=== PATIENT | female | born 1935 | race Caucasian/White ===

== ENCOUNTER 2022-05-11 00:44 | Inpatient (IN) ==
[2022-05-11] MEDS ORDERED: dilTIAZem HCl 5 MG/ML 5 ML VIAL IV ONE (00:50)
[2022-05-11] MEDS ORDERED: STAT IV Infusion **Titration per Protocol STA (00:56)
--- NOTE | 2022-05-11 01:02 | Emergency Department Note ---
History of Present Illness General Chief complaint: Cardiac Assessment Stated complaint: general illness; elevated BSG Time Seen by Provider: 05/11/22 00:55 History of Present Illness 86-year-old female presents via EMS reportedly was unable to get off the toilet seat for approximately 3 hours this evening. Family called and the patient did not respond therefore they went to the patient's house and found her on the toilet. Patient states generalized weakness. Patient denies nausea vomiting diarrhea denies chest pain denies palpitations denies slurred speech blurred vision. Patient states that she was generally too weak to get off of the toilet. Home Medications Medication Instructions Recorded Confirmed Type acetaminophen 325 mg tablet 650 mg PO QID PRN Pain 02/22/21 05/11/22 History (Tylenol) lorazepam 0.5 mg tablet 0.5 mg PO TID PRN Anxiety 02/22/21 05/11/22 History phenylephrine 0.25 %-mineral oil 1 applic [place] BID PRN hemorrhoids 02/22/21 05/11/22 Rx 14 %-petrolatm 74.9 % rectal #28 grams ointment (Preparation H) Allergies Allergy/AdvReac Type Severity Reaction Status Date / Time Penicillins Allergy Unknown CAN'T Verified 05/11/22 01:33 REMEMBER prednisone AdvReac Intermediate irritabilit Verified 05/11/22 01:33 y Past Med/Surg History Medical History COPD (chronic obstructive pulmonary disease) (03/04/14) JOSE (generalized anxiety disorder) (03/04/14) History of diverticulosis Lower GI bleed Surgical History H/O tubal ligation Family History Other Family history non-contributory Social History Smoking Status: Never smoker Preferred Language: Lithuanian Feels Safe at Home: Yes Review of Systems A total of 10 systems reviewed and were otherwise negative Constitutional: + fatigue and + weakness Respiratory: no cough Cardiovascular: no chest pain and no palpitations Gastrointestinal: no abdominal pain Physical Exam Vital Signs Vital Signs - 24 hr 05/11/22 00:56 05/11/22 00:57 05/11/22 00:50 Temperature Temperature Source Pulse Rate 181 H Pulse Rate [Apical] 141 H Pulse Rate from SpO2 Sensor 169 H Pulse Rhythm Respiratory Rate 24 37 H Respiratory Depth Blood Pressure 88/67 L Blood Pressure [Right Arm] 91/71 L Blood Pressure Mean 74 Blood Pressure Mean [Right Arm] 77 Pulse Oximetry 95 96 95 Oxygen Delivery Method Room Air Room Air Room Air Sepsis Recent Fever Within 48 Hours Sepsis New/Unexplained Change in Mental Status Sepsis Action Taken by Nursing 05/11/22 00:36 05/11/22 00:36 05/11/22 00:56 Temperature 37 C Temperature Source Oral Pulse Rate 168 H Pulse Rate [Apical] Pulse Rate from SpO2 Sensor Pulse Rhythm Irregular Respiratory Rate 16 Respiratory Depth Normal Blood Pressure 85/67 L 91/71 L Blood Pressure [Right Arm] Blood Pressure Mean 73 77 Blood Pressure Mean [Right Arm] Pulse Oximetry 97 Oxygen Delivery Method Room Air Room Air Sepsis Recent Fever Within 48 Hours No Sepsis New/Unexplained Change in Mental Status No Sepsis Action Taken by Nursing Physician Notified 05/11/22 00:56 05/11/22 01:00 05/11/22 01:00 Temperature Temperature Source Pulse Rate 153 H 138 H Pulse Rate [Apical] Pulse Rate from SpO2 Sensor 147 H 146 H Pulse Rhythm Respiratory Rate 29 H 33 H Respiratory Depth Blood Pressure 102/70 Blood Pressure [Right Arm] Blood Pressure Mean 80 Blood Pressure Mean [Right Arm] Pulse Oximetry 95 96 Oxygen Delivery Method Sepsis Recent Fever Within 48 Hours Sepsis New/Unexplained Change in Mental Status Sepsis Action Taken by Nursing 05/11/22 01:10 05/11/22 01:10 05/11/22 01:20 Temperature Temperature Source Pulse Rate 137 H Pulse Rate [Apical] Pulse Rate from SpO2 Sensor 132 H Pulse Rhythm Respiratory Rate 27 H Respiratory Depth Blood Pressure 100/61 105/74 Blood Pressure [Right Arm] Blood Pressure Mean 74 84 Blood Pressure Mean [Right Arm] Pulse Oximetry 95 Oxygen Delivery Method Sepsis Recent Fever Within 48 Hours Sepsis New/Unexplained Change in Mental Status Sepsis Action Taken by Nursing 05/11/22 01:20 05/11/22 01:30 05/11/22 01:30 Temperature Temperature Source Pulse Rate 143 H 115 H Pulse Rate [Apical] Pulse Rate from SpO2 Sensor 127 H 115 H Pulse Rhythm Respiratory Rate 31 H 26 H Respiratory Depth Blood Pressure 101/62 101/62 Blood Pressure [Right Arm] Blood Pressure Mean 75 75 Blood Pressure Mean [Right Arm] Pulse Oximetry 95 97 Oxygen Delivery Method Sepsis Recent Fever Within 48 Hours Sepsis New/Unexplained Change in Mental Status Sepsis Action Taken by Nursing 05/11/22 01:40 05/11/22 01:40 05/11/22 01:50 Temperature Temperature Source Pulse Rate 136 H 137 H Pulse Rate [Apical] Pulse Rate from SpO2 Sensor 130 H 133 H Pulse Rhythm Respiratory Rate 29 H 24 Respiratory Depth Blood Pressure 111/62 Blood Pressure [Right Arm] Blood Pressure Mean 78 Blood Pressure Mean [Right Arm] Pulse Oximetry 96 97 Oxygen Delivery Method Sepsis Recent Fever Within 48 Hours Sepsis New/Unexplained Change in Mental Status Sepsis Action Taken by Nursing 05/11/22 01:50 05/11/22 02:00 05/11/22 02:00 Temperature Temperature Source Pulse Rate 85 Pulse Rate [Apical] Pulse Rate from SpO2 Sensor 74 Pulse Rhythm Respiratory Rate 27 H Respiratory Depth Blood Pressure 98/61 L 113/61 Blood Pressure [Right Arm] Blood Pressure Mean 73 78 Blood Pressure Mean [Right Arm] Pulse Oximetry 96 Oxygen Delivery Method Sepsis Recent Fever Within 48 Hours Sepsis New/Unexplained Change in Mental Status Sepsis Action Taken by Nursing 05/11/22 02:10 05/11/22 02:10 05/11/22 02:20 Temperature Temperature Source Pulse Rate 76 75 Pulse Rate [Apical] Pulse Rate from SpO2 Sensor 79 74 Pulse Rhythm Respiratory Rate 28 H 25 H Respiratory Depth Blood Pressure 110/63 Blood Pressure [Right Arm] Blood Pressure Mean 78 Blood Pressure Mean [Right Arm] Pulse Oximetry 96 96 Oxygen Delivery Method Sepsis Recent Fever Within 48 Hours Sepsis New/Unexplained Change in Mental Status Sepsis Action Taken by Nursing 05/11/22 02:20 05/11/22 02:30 05/11/22 02:30 Temperature Temperature Source Pulse Rate 85 Pulse Rate [Apical] Pulse Rate from SpO2 Sensor Pulse Rhythm Respiratory Rate 26 H Respiratory Depth Blood Pressure 114/61 118/68 Blood Pressure [Right Arm] Blood Pressure Mean 78 84 Blood Pressure Mean [Right Arm] Pulse Oximetry Oxygen Delivery Method Sepsis Recent Fever Within 48 Hours Sepsis New/Unexplained Change in Mental Status Sepsis Action Taken by Nursing 05/11/22 02:40 05/11/22 02:40 05/11/22 02:50 Temperature Temperature Source Pulse Rate 79 78 Pulse Rate [Apical] Pulse Rate from SpO2 Sensor Pulse Rhythm Respiratory Rate 23 27 H Respiratory Depth Blood Pressure 93/59 L Blood Pressure [Right Arm] Blood Pressure Mean 70 Blood Pressure Mean [Right Arm] Pulse Oximetry Oxygen Delivery Method Sepsis Recent Fever Within 48 Hours Sepsis New/Unexplained Change in Mental Status Sepsis Action Taken by Nursing 05/11/22 02:50 05/11/22 03:00 05/11/22 03:00 Temperature Temperature Source Pulse Rate 81 Pulse Rate [Apical] Pulse Rate from SpO2 Sensor Pulse Rhythm Respiratory Rate 23 Respiratory Depth Blood Pressure 125/69 110/71 Blood Pressure [Right Arm] Blood Pressure Mean 87 84 Blood Pressure Mean [Right Arm] Pulse Oximetry Oxygen Delivery Method Sepsis Recent Fever Within 48 Hours Sepsis New/Unexplained Change in Mental Status Sepsis Action Taken by Nursing 05/11/22 03:10 05/11/22 03:10 05/11/22 03:20 Temperature Temperature Source Pulse Rate 81 81 Pulse Rate [Apical] Pulse Rate from SpO2 Sensor 77 80 Pulse Rhythm Respiratory Rate 26 H 30 H Respiratory Depth Blood Pressure 108/65 Blood Pressure [Right Arm] Blood Pressure Mean 79 Blood Pressure Mean [Right Arm] Pulse Oximetry 97 94 Oxygen Delivery Method Sepsis Recent Fever Within 48 Hours Sepsis New/Unexplained Change in Mental Status Sepsis Action Taken by Nursing 05/11/22 03:20 05/11/22 03:30 05/11/22 03:30 Temperature Temperature Source Pulse Rate 76 Pulse Rate [Apical] Pulse Rate from SpO2 Sensor 76 Pulse Rhythm Respiratory Rate 29 H Respiratory Depth Blood Pressure 108/59 L 112/63 Blood Pressure [Right Arm] Blood Pressure Mean 75 79 Blood Pressure Mean [Right Arm] Pulse Oximetry 98 Oxygen Delivery Method Sepsis Recent Fever Within 48 Hours Sepsis New/Unexplained Change in Mental Status Sepsis Action Taken by Nursing 05/11/22 03:40 05/11/22 03:40 05/11/22 03:50 Temperature Temperature Source Pulse Rate 82 82 Pulse Rate [Apical] Pulse Rate from SpO2 Sensor 80 78 Pulse Rhythm Respiratory Rate 22 32 H Respiratory Depth Blood Pressure 116/80 Blood Pressure [Right Arm] Blood Pressure Mean 92 Blood Pressure Mean [Right Arm] Pulse Oximetry 92 97 Oxygen Delivery Method Sepsis Recent Fever Within 48 Hours Sepsis New/Unexplained Change in Mental Status Sepsis Action Taken by Nursing 05/11/22 03:50 05/11/22 04:00 05/11/22 04:00 Temperature Temperature Source Pulse Rate 81 Pulse Rate [Apical] Pulse Rate from SpO2 Sensor 81 Pulse Rhythm Respiratory Rate 33 H Respiratory Depth Blood Pressure 118/74 119/69 Blood Pressure [Right Arm] Blood Pressure Mean 88 85 Blood Pressure Mean [Right Arm] Pulse Oximetry 96 Oxygen Delivery Method Sepsis Recent Fever Within 48 Hours Sepsis New/Unexplained Change in Mental Status Sepsis Action Taken by Nursing 05/11/22 04:10 05/11/22 04:10 05/11/22 04:20 Temperature Temperature Source Pulse Rate 77 Pulse Rate [Apical] Pulse Rate from SpO2 Sensor 80 Pulse Rhythm Respiratory Rate 25 H Respiratory Depth Blood Pressure 115/74 122/74 Blood Pressure [Right Arm] Blood Pressure Mean 87 90 Blood Pressure Mean [Right Arm] Pulse Oximetry 98 Oxygen Delivery Method Sepsis Recent Fever Within 48 Hours Sepsis New/Unexplained Change in Mental Status Sepsis Action Taken by Nursing 05/11/22 04:20 05/11/22 04:30 05/11/22 04:30 Temperature Temperature Source Pulse Rate 78 84 Pulse Rate [Apical] Pulse Rate from SpO2 Sensor 74 86 Pulse Rhythm Respiratory Rate 30 H 30 H Respiratory Depth Blood Pressure 133/76 Blood Pressure [Right Arm] Blood Pressure Mean 95 Blood Pressure Mean [Right Arm] Pulse Oximetry 95 98 Oxygen Delivery Method Sepsis Recent Fever Within 48 Hours Sepsis New/Unexplained Change in Mental Status Sepsis Action Taken by Nursing 05/11/22 04:40 05/11/22 04:40 05/11/22 04:50 Temperature Temperature Source Pulse Rate 79 75 Pulse Rate [Apical] Pulse Rate from SpO2 Sensor 78 77 Pulse Rhythm Respiratory Rate 21 21 Respiratory Depth Blood Pressure 170/99 H Blood Pressure [Right Arm] Blood Pressure Mean 122 Blood Pressure Mean [Right Arm] Pulse Oximetry 92 98 Oxygen Delivery Method Sepsis Recent Fever Within 48 Hours Sepsis New/Unexplained Change in Mental Status Sepsis Action Taken by Nursing 05/11/22 04:50 05/11/22 05:00 05/11/22 05:00 Temperature Temperature Source Pulse Rate 80 Pulse Rate [Apical] Pulse Rate from SpO2 Sensor 75 Pulse Rhythm Respiratory Rate 27 H Respiratory Depth Blood Pressure 144/77 H 141/84 H Blood Pressure [Right Arm] Blood Pressure Mean 99 103 Blood Pressure Mean [Right Arm] Pulse Oximetry 97 Oxygen Delivery Method Sepsis Recent Fever Within 48 Hours Sepsis New/Unexplained Change in Mental Status Sepsis Action Taken by Nursing 05/11/22 05:10 05/11/22 05:10 05/11/22 05:20 Temperature Temperature Source Pulse Rate 69 95 H Pulse Rate [Apical] Pulse Rate from SpO2 Sensor 68 86 Pulse Rhythm Respiratory Rate 22 34 H Respiratory Depth Blood Pressure 122/69 Blood Pressure [Right Arm] Blood Pressure Mean 86 Blood Pressure Mean [Right Arm] Pulse Oximetry 92 94 Oxygen Delivery Method Sepsis Recent Fever Within 48 Hours Sepsis New/Unexplained Change in Mental Status Sepsis Action Taken by Nursing 05/11/22 05:20 05/11/22 05:30 05/11/22 05:31 Temperature Temperature Source Pulse Rate 77 Pulse Rate [Apical] Pulse Rate from SpO2 Sensor 71 Pulse Rhythm Respiratory Rate 21 Respiratory Depth Blood Pressure 129/75 146/86 H Blood Pressure [Right Arm] Blood Pressure Mean 93 106 Blood Pressure Mean [Right Arm] Pulse Oximetry 97 Oxygen Delivery Method Sepsis Recent Fever Within 48 Hours Sepsis New/Unexplained Change in Mental Status Sepsis Action Taken by Nursing 05/11/22 05:31 05/11/22 05:40 05/11/22 05:40 Temperature Temperature Source Pulse Rate 72 72 Pulse Rate [Apical] Pulse Rate from SpO2 Sensor 70 70 Pulse Rhythm Respiratory Rate 27 H 25 H Respiratory Depth Blood Pressure 138/79 Blood Pressure [Right Arm] Blood Pressure Mean 98 Blood Pressure Mean [Right Arm] Pulse Oximetry 90 98 Oxygen Delivery Method Sepsis Recent Fever Within 48 Hours Sepsis New/Unexplained Change in Mental Status Sepsis Action Taken by Nursing GENERAL: Patient is awake alert in no acute distress patient is resting comfortably and showing no signs of anxiety EYES: The conjunctivae are clear. The pupils are round and reactive. EARS, NOSE, MOUTH AND THROAT: The nose is without any evidence of any deformity. Mucous membranes are moist. Tongue is midline. NECK: The neck is nontender and supple RESPIRATORY: Normal respiratory effort is noted there is no evidence of wheezing rhonchi or rales CARDIAC Irregular, tachycardic rate and rhythm GASTROINTESTINAL: The abdomen is soft. Abdomen is nontender. PELVIS: The Pelvis is stable. No tenderness to palpation is noted. BACK: No midline tenderness or or step-off noted range of motion in flexion extension as well as rotation no signs of muscle spasm noted MUSCULOSKELETAL/EXTREMITIES: There is no evidence of gross deformity full range of motion is noted in the hips and shoulders. SKIN: There is no obvious evidence of any rash. There are no petechiae, pallor or cyanosis noted. NEUROLOGIC: Patient is awake alert and oriented x3 strength is symmetric Course Reevaluation(s) Reevaluation #1: Patient is resting in no distress after an IV Cardizem drip her heart rate is now in a sinus rhythm less than 100. Patient was started empirically on cefepime I suspect that she might have a urinary tract infection as well. Patient was given IV fluids judiciously as with rapid A. fib there is a concern for CHF. Her white blood cell count is 33 her lactate is greater than 2 so there is a possibility for sepsis however patient was given a judicious IV bolus of fluid. Patient is on a Cardizem drip. The case was discussed with the hospitalist from [facility] for admission Time: 03:48 Administered Medications Diltiazem HCl 125 mg/ Dextrose 125 mls @ 7.5 mls/hr IV .[id number] QI; Protocol Stop: 06/10/22 00:59 Last Titration: 05/11/22 03:30 Dose: 7.5 mg/hr, 7.5 mls/hr Documented By: NASIR Co-signed By: VINAY Titration: 05/11/22 01:51 Dose: 10 mg/hr, 10 mls/hr Documented By: NASIR Co-signed By: MARIANNE Admin: 05/11/22 01:12 Dose: 5 mg/hr, 5 mls/hr Documented By: NASIR Co-signed By: AUSTIN Discontinued Medications Diltiazem HCl (Diltiazem Hcl 5 Mg/Ml 5 Ml Vial) Confirm Administered Dose 25 mg IV .STK-MED ONE Stop: 05/11/22 00:51 Last Increment: 05/11/22 01:05 Dose: 10 mg Documented By: NASIR Co-signed By: AUSTIN Increment: 05/11/22 00:55 Dose: 10 mg Documented By: NASIR Co-signed By: AUSTIN Cefepime HCl (Maxipime) 2,000 mg in 20 mls @ 5 mls/min IV NOW STA; Protocol Stop: 05/11/22 02:51 Last Admin: 05/11/22 03:08 Dose: 5 mls/min Documented By: NASIR Sodium Chloride (Nss) 500 mls @ 500 mls/hr IV .Q1H QI Stop: 05/11/22 05:14 Last Admin: 05/11/22 05:20 Dose: Not Given Documented By: NASIR Sodium Chloride (Nss 1000ml) 1,000 mls @ 999 mls/hr IV .Q1H1M QI Stop: 05/11/22 05:30 Last Admin: 05/11/22 05:07 Dose: 999 mls/hr Documented By: NASIR Insulin Human Regular (Novolin-R Insulin Per Unit Charge) 6 units IV NOW STA Stop: 05/11/22 04:11 Last Admin: 05/11/22 05:07 Dose: 6 units Documented By: NASIR Co-signed By: VINAY Lorazepam (Lorazepam 0.5 Mg Tab) 0.5 mg PO NOW STA Stop: 05/11/22 05:17 Last Admin: 05/11/22 05:19 Dose: 0.5 mg Documented By: NASIR Miscellaneous (Stat Iv Infusion Titration Per Protocol) 1 each N/A NOW STA Stop: 05/11/22 00:57 Last Admin: 05/11/22 01:12 Dose: Not Given Documented By: NASIR Critical Care Time Prolonged Care Time Prolonged Care Time: Yes Total Prolonged Care Time: 35 I have personally spent greater than 35 minutes of critical care time in the direct management of this patient. This includes bedside care, interpretation of diagnostic studies, and testing, discussion with consultants, patient, and family members, and other required patient management activities. These minutes are in excess of all separately billable procedures. Medical Decision Making Medical Records Attestation: I reviewed the patient's medical records. Home Medications Current Medication List: was personally reviewed by me Laboratory Data Attestation: I reviewed the patient's lab results. Result diagrams: 05/11/22 01:00 05/11/22 01:00 Lab Results 05/11/22 05/11/22 05/11/22 Range/Units 00:59 01:00 01:00 WBC 33.85 H* (4.8-10.8) K/ul RBC 5.20 (3.93-5.22) M/uL Hgb 15.0 (12.0-16.0) g/dl Hct 44.5 (34.1-44.9) % MCV 85.6 (80.0-100.0) fL MCH 28.8 (25.0-34.0) pg MCHC 33.7 (32.0-36.0) g/dL RDW Std Deviation 45.7 (36.4-46.3) fL RDW Coeff of Shilpa 14.6 H (11.5-14.5) % Plt Count 307 (130-400) K/uL MPV 10.5 (9.4-12.3) fL Immature Gran % (Auto) 1.4 % Neut % (Auto) 88.2 % Lymph % (Auto) 1.9 % [place] % (Auto) 8.2 % Eos % (Auto) 0.0 % Baso % (Auto) 0.3 % Neut # (Auto) 29.82 H (1.4-6.5) K/uL Lymph # (Auto) 0.66 L (1.2-3.4) K/uL [place] # (Auto) 2.79 H (0.24-0.82) K/uL Eos # (Auto) 0.00 (0-0.50) K/uL Baso # (Auto) 0.10 (0-0.2) K/uL Immature Gran # (Auto) 0.48 H (0.00-0.02) K/uL PT 10.9 (9.0-12.0) Seconds INR 1.0 (0.9-1.1) APTT 22.8 (21.0-31.0) Seconds PTT Ratio 0.8 Sodium (136-145) mmol/L Potassium (3.5-5.1) mmol/L Chloride (98-107) mmol/L Carbon Dioxide (21-32) mmol/L Anion Gap (3-11) BUN (6-23) mg/dl Creatinine (0.6-1.2) mg/dl Est Cr Clr Drug Dosing Est GFR ( Amer) ml/min Est GFR (Non-Af Amer) ml/min BUN/Creatinine Ratio (10-20) Glucose (70-99(Fasting)) mg/dl POC Glucose (70-99) mg/dl Lactate (0.4-2.0) mmol/L Calcium (8.5-10.1) mg/dl Total Bilirubin (0.2-1.0) mg/dl AST (13-39) U/L ALT (7-52) U/L Alkaline Phosphatase (34-104) U/L Troponin I High Sens (0-14) pg/ml Total Protein (6.0-8.3) gm/dl Albumin (3.4-5.0) gm/dl Globulin (2.5-4.0) gm/dl Albumin/Globulin Ratio (0.9-2) Urine Color Urine Appearance (Clear) Urine pH (4.5-7.5) Ur Specific Harper (1.000-1.030) Urine Protein (Negative) Urine Glucose (UA) (Negative) Urine Ketones (Negative) Urine Blood (Negative) Urine Nitrite (Negative) Urine Bilirubin (Negative) Urine Urobilinogen (Negative) Ur Leukocyte Esterase (Negative) Urine WBC (Auto) (0-5) /hpf Urine RBC (Auto) (0-4) /hpf U Hyaline Cast (Auto) (0-5) /lpf U Epithel Cells (Auto) (0-5) /lpf Urine Bacteria (Auto) (Negative) Urine Yeast (None Prsent) SARS-CoV-2, RNA, NAAT NEGATIVE (NEGATIVE) 05/11/22 05/11/22 05/11/22 Range/Units 01:00 02:23 03:00 WBC (4.8-10.8) K/ul RBC (3.93-5.22) M/uL Hgb (12.0-16.0) g/dl Hct (34.1-44.9) % MCV (80.0-100.0) fL MCH (25.0-34.0) pg MCHC (32.0-36.0) g/dL RDW Std Deviation (36.4-46.3) fL RDW Coeff of Shilpa (11.5-14.5) % Plt Count (130-400) K/uL MPV (9.4-12.3) fL Immature Gran % (Auto) % Neut % (Auto) % Lymph % (Auto) % [place] % (Auto) % Eos % (Auto) % Baso % (Auto) % Neut # (Auto) (1.4-6.5) K/uL Lymph # (Auto) (1.2-3.4) K/uL [place] # (Auto) (0.24-0.82) K/uL Eos # (Auto) (0-0.50) K/uL Baso # (Auto) (0-0.2) K/uL Immature Gran # (Auto) (0.00-0.02) K/uL PT (9.0-12.0) Seconds INR (0.9-1.1) APTT (21.0-31.0) Seconds PTT Ratio Sodium 135 L (136-145) mmol/L Potassium 3.9 (3.5-5.1) mmol/L Chloride 98 (98-107) mmol/L Carbon Dioxide 20 L (21-32) mmol/L Anion Gap 17 H (3-11) BUN 15 (6-23) mg/dl Creatinine 1.22 H (0.6-1.2) mg/dl Est Cr Clr Drug Dosing Not Reportable Est GFR ( Amer) 45.8 ml/min Est GFR (Non-Af Amer) 39.5 ml/min BUN/Creatinine Ratio 12.3 (10-20) Glucose 403 H* (70-99(Fasting)) mg/dl POC Glucose (70-99) mg/dl Lactate 2.9 H* (0.4-2.0) mmol/L Calcium 9.4 (8.5-10.1) mg/dl Total Bilirubin 1.0 (0.2-1.0) mg/dl AST 17 (13-39) U/L ALT 11 (7-52) U/L Alkaline Phosphatase 83 (34-104) U/L Troponin I High Sens 71.5 H* (0-14) pg/ml Total Protein 6.8 (6.0-8.3) gm/dl Albumin 3.7 (3.4-5.0) gm/dl Globulin 3.1 (2.5-4.0) gm/dl Albumin/Globulin Ratio 1.2 (0.9-2) Urine Color Yellow Urine Appearance Turbid A (Clear) Urine pH 5.0 (4.5-7.5) Ur Specific Harper 1.021 (1.000-1.030) Urine Protein 2+ H (Negative) Urine Glucose (UA) 3+ H (Negative) Urine Ketones 1+ H (Negative) Urine Blood 1+ H (Negative) Urine Nitrite Positive A (Negative) Urine Bilirubin Negative (Negative) Urine Urobilinogen Negative (Negative) Ur Leukocyte Esterase 2+ H (Negative) Urine WBC (Auto) >30 H (0-5) /hpf Urine RBC (Auto) 5-10 H (0-4) /hpf U Hyaline Cast (Auto) 1-5 (0-5) /lpf U Epithel Cells (Auto) >30 H (0-5) /lpf Urine Bacteria (Auto) 4+ H (Negative) Urine Yeast Present A (None Prsent) SARS-CoV-2, RNA, NAAT (NEGATIVE) 05/11/22 05/11/22 Range/Units 04:29 04:37 WBC (4.8-10.8) K/ul RBC (3.93-5.22) M/uL Hgb (12.0-16.0) g/dl Hct (34.1-44.9) % MCV (80.0-100.0) fL MCH (25.0-34.0) pg MCHC (32.0-36.0) g/dL RDW Std Deviation (36.4-46.3) fL RDW Coeff of Shilpa (11.5-14.5) % Plt Count (130-400) K/uL MPV (9.4-12.3) fL Immature Gran % (Auto) % Neut % (Auto) % Lymph % (Auto) % [place] % (Auto) % Eos % (Auto) % Baso % (Auto) % Neut # (Auto) (1.4-6.5) K/uL Lymph # (Auto) (1.2-3.4) K/uL [place] # (Auto) (0.24-0.82) K/uL Eos # (Auto) (0-0.50) K/uL Baso # (Auto) (0-0.2) K/uL Immature Gran # (Auto) (0.00-0.02) K/uL PT (9.0-12.0) Seconds INR (0.9-1.1) APTT (21.0-31.0) Seconds PTT Ratio Sodium (136-145) mmol/L Potassium (3.5-5.1) mmol/L Chloride (98-107) mmol/L Carbon Dioxide (21-32) mmol/L Anion Gap (3-11) BUN (6-23) mg/dl Creatinine (0.6-1.2) mg/dl Est Cr Clr Drug Dosing Est GFR ( Amer) ml/min Est GFR (Non-Af Amer) ml/min BUN/Creatinine Ratio (10-20) Glucose (70-99(Fasting)) mg/dl POC Glucose 380 H* (70-99) mg/dl Lactate 3.1 H* (0.4-2.0) mmol/L Calcium (8.5-10.1) mg/dl Total Bilirubin (0.2-1.0) mg/dl AST (13-39) U/L ALT (7-52) U/L Alkaline Phosphatase (34-104) U/L Troponin I High Sens (0-14) pg/ml Total Protein (6.0-8.3) gm/dl Albumin (3.4-5.0) gm/dl Globulin (2.5-4.0) gm/dl Albumin/Globulin Ratio (0.9-2) Urine Color Urine Appearance (Clear) Urine pH (4.5-7.5) Ur Specific Harper (1.000-1.030) Urine Protein (Negative) Urine Glucose (UA) (Negative) Urine Ketones (Negative) Urine Blood (Negative) Urine Nitrite (Negative) Urine Bilirubin (Negative) Urine Urobilinogen (Negative) Ur Leukocyte Esterase (Negative) Urine WBC (Auto) (0-5) /hpf Urine RBC (Auto) (0-4) /hpf U Hyaline Cast (Auto) (0-5) /lpf U Epithel Cells (Auto) (0-5) /lpf Urine Bacteria (Auto) (Negative) Urine Yeast (None Prsent) SARS-CoV-2, RNA, NAAT (NEGATIVE) Imaging Data Attestation: I personally reviewed and interpreted this imaging study as follows: ECG Data Attestation: I personally reviewed and interpreted this ECG as follows: Additional Comments: EKG #1 interpreted by me is SVT versus rapid atrial fibrillation rate greater than [address]-T change no obvious ST segment elevation n ormal axis EKG #2 after IV Cardizem and IV Cardizem drip interpreted by me as a sinus rhythm rate of [address]-T change normal intervals normal axis MDM Narrative Medical decision making differential diagnosis includes SVT, rapid atrial fibri llation, hyperglycemia, metabolic derangement, dehydration. Plan is to check labs, EKG, chest x-ray, give IV Cardizem, observe Patient was evaluated for weakness was found to be in SVT he was given IV Cardizem drip has an elevated white blood cell count has an elevated lactate likely has a urinary tract infection has a negative chest x-ray was given IV fluids judiciously not a 30 mL/kg bolus due to concern for CHF. Patient will be admitted for new onset rapid A. fib SVT, sepsis. Impression & Plan SVT (supraventricular tachycardia), Atrial fibrillation with RVR, Leukocytosis, Weakness, Acute hyperglycemia, SIRS (systemic inflammatory response syndrome), Acute UTI (urinary tract infection) Discharge Plan Visit Data Chief Complaint: Cardiac Assessment Stated Complaint: general illness; elevated BSG ED Provider: Art Jeff Discharge Problem: SVT (supraventricular tachycardia), Atrial fibrillation with RVR, Leukocytosis, Weakness, Acute hyperglycemia, SIRS (systemic inflammatory response syndrome), Acute UTI (urinary tract infection) Forms Stand Alone Forms: Key Travel Prescriptions Prescriptions: No Action acetaminophen [Tylenol] 325 mg Tablet 650 mg PO QID PRN (Reason: Pain) lorazepam 0.5 mg tablet 0.5 mg PO TID PRN (Reason: Anxiety) Preparation H 0.25-14-74.9 % ointment 1 applic [place] BID PRN (Reason: hemorrhoids) Qty: 28 0RF Referrals Referrals: Lance Conklin MD [Primary Care Provider] -
[2022-05-11] MEDS: dilTIAZem HCL 125 MG in DEXTROSE 5% 100 ML IV SCH ×2 (01:12→14:42)
[2022-05-11 01:20] LABS: Partial Thromboplastin Ratio 0.8; Partial Thromboplastin Time 22.8 Seconds (21.0-31.0); Prothrombin Time 10.9 Seconds (9.0-12.0)
[2022-05-11 01:42] LABS: Basophils % (auto) 0.3 %; Hematocrit (blood only) 44.5 % (34.1-44.9); Immature Granulocytes # (auto) 0.48 K/uL (0.00-0.02); Immature Granulocytes % (auto) 1.4 %; Lymphocytes # (auto) 0.66 K/uL (1.2-3.4); Lymphocytes % (auto) 1.9 %; Mean Corpuscular Hemoglobin 28.8 pg (25.0-34.0); Mean Corpuscular Hgb Conc 33.7 g/dL (32.0-36.0); Mean Corpuscular Volume 85.6 fL (80.0-100.0); Mean Platelet Volume 10.5 fL (9.4-12.3); Monocytes # (auto) 2.79 K/uL (0.24-0.82); Monocytes % (auto) 8.2 %; Neutrophils # (auto) 29.82 K/uL (1.4-6.5); Neutrophils % (auto) 88.2 %; Platelet Count 307 K/uL (130-400); RDW Coefficient of Variation 14.6 % (11.5-14.5); RDW Standard Deviation 45.7 fL (36.4-46.3); White Blood Count 33.85 K/ul (4.8-10.8)
[2022-05-11 02:02] LABS: Alanine Aminotransferase 11 U/L (7-52); Albumin Globulin Ratio 1.2 (0.9-2); Albumin Level 3.7 gm/dl (3.4-5.0); Alkaline Phosphatase 83 U/L (34-104); Anion Gap 17 (3-11); Aspartate Aminotransferase 17 U/L (13-39); BUN Creatinine Ratio 12.3 (10-20); Blood Urea Nitrogen 15 mg/dl (6-23); Calcium 9.4 mg/dl (8.5-10.1); Carbon Dioxide 20 mmol/L (21-32); Chloride 98 mmol/L (98-107); Est GFR (African American) 45.8 ml/min; Est GFR (Non-African American) 39.5 ml/min; Globulin 3.1 gm/dl (2.5-4.0); Glucose 403 mg/dl (70-99(Fasting)); Potassium 3.9 mmol/L (3.5-5.1); Sodium 135 mmol/L (136-145); Total Protein 6.8 gm/dl (6.0-8.3); Troponin I High Sensitivity 71.5 pg/ml (0-14)
[2022-05-11] MEDS ORDERED: CEFEPIME 2,000 MG/20 ML VIAL IV STA (02:48)
[2022-05-11 03:13] LABS: Appearance Urine Turbid (Clear); Bacteria Urine Automated 4+ (Negative); Bilirubin Urine Negative (Negative); Blood Urine 1+ (Negative); Color Urine Yellow; Epithelial Cell Urine Auto >30 /lpf (0-5); Glucose Urine UA 3+ (Negative); Ketones Urine 1+ (Negative); Leukocyte Esterase Urine 2+ (Negative); Nitrite Urine Positive (Negative); Protein Urine 2+ (Negative); Specific Gravity Urine 1.021 (1.000-1.030); Urobilinogen Urine Negative (Negative); WBC Urine Automated >30 /hpf (0-5)
[2022-05-11] MEDS ORDERED: NovoLIN-R INSULIN PER UNIT CHARGE IV STA (04:10)
[2022-05-11] MEDS ORDERED: SODIUM CHLORIDE 0.9% 500 ML IV SCH (04:15)
[2022-05-11] MEDS ORDERED: SODIUM CHLORIDE 0.9% 1000ML 1,000 ML IV SCH (04:30)
[2022-05-11] MEDS ORDERED: LORazepam 0.5 MG TAB PO STA (05:16)
[2022-05-11] MEDS ORDERED: POLYETHYLENE (MIRALAX) 17 GM PACK PO PRN (06:43)
[2022-05-11] MEDS ORDERED: NITROGLYCERIN SL 0.4 MG/TAB TAB SL PRN (06:43)
[2022-05-11] MEDS ORDERED: Patient's HEIGHT &/or WEIGHT Needed SCH (07:15)
[2022-05-11] MEDS ORDERED: INSULIN ASPART PER UNIT SC SCH ×2 (07:30→15:00)
[2022-05-11 07:56] LABS: Anion Gap 11 (3-11); BUN Creatinine Ratio 16.2 (10-20); Blood Urea Nitrogen 17 mg/dl (6-23); Calcium 8.4 mg/dl (8.5-10.1); Carbon Dioxide 22 mmol/L (21-32); Chloride 103 mmol/L (98-107); Est GFR (African American) 54.9 ml/min; Est GFR (Non-African American) 47.4 ml/min; Glucose 323 mg/dl (70-99(Fasting)); Potassium 3.6 mmol/L (3.5-5.1); Sodium 136 mmol/L (136-145)
[2022-05-11 08:01] LABS: Hematocrit (blood only) 38.5 % (34.1-44.9); Mean Corpuscular Hgb Conc 33.8 g/dL (32.0-36.0); Mean Corpuscular Volume 85.9 fL (80.0-100.0); Mean Platelet Volume 10.1 fL (9.4-12.3); Platelet Count 275 K/uL (130-400); RDW Coefficient of Variation 14.8 % (11.5-14.5); RDW Standard Deviation 46.9 fL (36.4-46.3); Red Blood Count 4.48 M/uL (3.93-5.22); White Blood Count 33.13 K/ul (4.8-10.8)
[2022-05-11 08:02] LABS: Basophils # (auto) 0.09 K/uL (0-0.2); Basophils % (auto) 0.3 %; Immature Granulocytes # (auto) 0.29 K/uL (0.00-0.02); Immature Granulocytes % (auto) 0.9 %; Lymphocytes # (auto) 1.82 K/uL (1.2-3.4); Lymphocytes % (auto) 5.5 %; Neutrophils # (auto) 27.63 K/uL (1.4-6.5); Neutrophils % (auto) 83.3 %; Troponin I High Sensitivity 1187.7 pg/ml (0-14)
[2022-05-11] MEDS ORDERED: INSULIN HUMAN REGULAR PER UNIT 6 UNITS in SYRINGE 0 ML IV STA (08:02)
[2022-05-11] MEDS ORDERED: PHARMACY GLYCEMIC MGMT CONSULT PRN (08:03)
[2022-05-11] MEDS ORDERED: HEPARIN 25000 UNIT/500 ML D5W IV ONE (08:20)
[2022-05-11] MEDS: INSULIN ASPART PER UNIT SC SCH ×4 (08:25→20:35)
--- NOTE | 2022-05-11 08:42 | XRay Report ---
XR chest 1V portable CLINICAL HISTORY: Atypical chest pain. COMPARISON STUDY: Chest radiograph March 07, 2015. FINDINGS: No pneumothorax or pleural effusion is present. There is no consolidation. Hiatal hernia is noted. Cardiomediastinal silhouette is stable. Appearance of the chest is unchanged. IMPRESSION: No acute cardiopulmonary findings. No change in appearance of the chest. ACT 112: Negative or not required by law. Electronically signed by: Stan Buckley M.D. 05/11/2022 8:40 AM
[2022-05-11] MEDS ORDERED: LANTUS PER UNIT CHARGE SQ ONE ×2 (09:00→21:00)
[2022-05-11] MEDS ORDERED: LANTUS PER UNIT CHARGE SQ SCH (09:00)
--- NOTE | 2022-05-11 09:31 | History and Physical Report ---
DATE OF ADMISSION: 05/11/2022. CHIEF COMPLAINT: Weakness and found to be in rapid AFib. HISTORY OF PRESENT ILLNESS: This 86-year-old female with past medical history significant for type 2 diabetes, currently not on any medications, history of COPD, asthma, not on any medications, history of aortic aneurysm without rupture, history of hypertension, currently not on any medications, GERD, history of depression, generalized anxiety disorder, on Ativan p.r.n., history of DVT, was on Eliquis, currently, it is stopped, who lives alone at home, ambulates with a cane, presents with weakness. Daughter calls her every night. She called around 6:00 p.m. when the patient was taking Tylenol, which she usually takes in the evening, then she called again at 9pm, but the patient was not answering the call. She called several times, she was not answering, then she went to patient's home and found her on the commode, alert and oriented, but not able to get up from the commode, feeling weak when EMS was called and she was brought in here. When she came in, she was in rapid AFib, heart rate in the 180s and she was started on Cardizem drip, currently better controlled. She was also found to have sugars in 400s and also sepsis with white count in 30's and lactate of 2.9. Urinalysis positive.. The patient's daughter is in the room. The patient is somewhat hard of hearing. The patient is also answering appropriately, but daughter is helping with H and P. The patient denies any headache. No blurred vision. Somewhat hard of hearing, no runny nose. Has some mild sore throat, occasional cough, no difficulty swallowing. She is eating and drinking okay. Denies any chest pain, no palpitations, no shortness of breath, no nausea, no abdominal pain. Normal bowel and bladder movements. She micturates a lot, but that is nothing unusual for her. No swelling in the legs, no rash. Hemodynamics are stable currently. ALLERGIES: PENICILLINS, PREDNISONE. PAST MEDICAL HISTORY: As mentioned above. PAST SURGICAL HISTORY: Colonoscopy, EGD. MEDICATIONS: The patient is on Tylenol 650 mg p.o. q.i.d. p.r.n., lorazepam 0.5 mg p.o. t.i.d. p.r.n. anxiety, Preparation H b.i.carlos. p.r.n. for hemorrhoids. FAMILY HISTORY: No family history on record. SOCIAL HISTORY: Currently lives alone. No smoking, no alcohol, no drug use. REVIEW OF SYSTEMS: As per HPI. Rest of the review of systems is negative. PHYSICAL EXAMINATION: GENERAL: The patient is old and frail, not in acute distress. VITAL SIGNS: Temperature 37, pulse 81, respiratory rate 23, blood pressure 110/71, oxygen 96% on room air. HEENT: Pupils equal, round and reactive to light. Oral mucosa dry. NECK: No JVD or neck masses. CARDIOVASCULAR: S1 and S2 heard. Irregular rhythm. No murmur, no gallop. RESPIRATORY SYSTEM: Normal AP diameter. No accessory muscle use. No wheezing, no crackles. ABDOMEN: Soft, bowel sounds present, nontender, no distention. CENTRAL NERVOUS SYSTEM: Alert and oriented. Speech is clear. No facial droop. Insight is okay. Obeys simple commands. Moves extremities. EXTREMITIES: No edema, no erythema. LABORATORY DATA: WBC 33.8, hemoglobin 15, hematocrit 44.5, platelets 307. PT 10.9, INR 1, APTT 22.8. Sodium 135, potassium 3.9, chloride 98, bicarbonate 20, BUN 15, creatinine 1.22, serum glucose 403. Lactate 2.9, calcium 9.4, total bilirubin 1, AST 17, ALT 11, alkaline phosphatase 83. Troponin I high sensitivity is 1.5. Urinalysis positive for nitrite and leukocyte esterase, +4 bacteria. SARS-CoV-2 rapid test positive. IMAGING DATA: Chest x-ray, no acute findings. EKG: Initial EKG: Atrial fibrillation with rapid ventricular response at a rate of 184. Some ST depression and T-wave inversion in inferolateral leads. Repeat EKG showing sinus rhythm, rate 77, nonspecific ST abnormalities. ASSESSMENT AND PLAN: This is an 86-year-old female who presents for weakness and found to have rapid atrial fibrillation, probably mild diabetic ketoacidosis and sepsis with urinary tract infection. 1. Rapid atrial fibrillation: ER started on Cardizem drip, which will be continued. Started on low-dose IV heparin. We will follow echo. We will follow serial enzymes, consult cardiology in the a.m. 2. Sepsis _ with elevated white count, urinary tract infection and elevated lactic acid 2.9: Started on fluids and cefepime. We will follow the cultures. 3. Elevated blood sugars possible mild diabetic ketoacidosis: We will give a dose of IV insulin and fluids and repeat labs.Lantus and ISS. If still uncontrolled, start her on diabetic ketoacidosis protocol. Follow HbA1c levels. Closely monitor. 4. Mild elevation of troponin: Mostly demand ischemia. We will follow serial enzymes. Follow echocardiogram. 5. Depression and anxiety: On Ativan p.r.n. 6. Hypertension: Not on any medications. We will monitor the blood pressure. 7. History of aortic aneurysm without rupture: Follow echocardiogram. 8. History of chronic obstructive pulmonary disease and asthma as per records: Not on any inhalers.Will monitor. 9.Weakness Mostly from above.Pt/Ot when stable. 10. Deep venous thrombosis prophylaxis: On IV heparin. DISPOSITION: Closely monitor in tele floor. Level 1 full code as per discussion with the daughter. Social service to help with discharge planning. Job ID: [id number]
[2022-05-11] MEDS: HEPARIN SODIUM/DEXTROSE 25,000 UNITS/500 ML BAG IV SCH (10:02)
[2022-05-11] MEDS: SODIUM CHLORIDE 0.9% 1000ML 1,000 ML IV SCH ×2 (10:02→20:40)
[2022-05-11] MEDS ORDERED: CEFEPIME 2,000 MG in SYRINGE 0 ML IV SCH (11:00)
--- NOTE | 2022-05-11 13:14 | Cardiology Consultation ---
Date of Consultation May 11, 2022 Assessment & Plan (1) Paroxysmal atrial fibrillation with rapid ventricular response: (2) Leukocytosis: (3) Weakness: (4) Left leg DVT: Spontaneous, August 2021 Plan Patient is an 86-year-old female who presented with acute weakness with atrial fibrillation with rapid response with spontaneous conversion to sinus rhythm following IV diltiazem. No prior history of cardiac disease or arrhythmias. She was treated for a spontaneous DVT in August 2021 with good tolerance of Eliquis. Troponins are significantly elevated question secondary to demand ischemia from rapid rate on presentation, underlying ischemic heart disease. EKGs do not reflect persistent ischemia though will check EKG in a.m and review echocardiogram Recent history of spontaneous DVT concerning anticoagulated appropriately currently with likely plans to transition to Eliquis if hemodynamic stability maintained over the next day Patient being treated for possible underlying infectious concerns given elevated white cell count acute weakness. Impression: Atrial fibrillation, paroxysmal with rapid response, elevated troponin We will add low-dose beta-connor with metoprolol succinate 12.5 mg to daily beginning today Review echocardiogram as available Continue anticoagulation with IV heparin. Ultimate goals transition to Eliquis Cardiology will follow History of Present Illness Reason for Consultation: Paroxysmal atrial fibrillation with rapid ventricular response, elevated troponin Requesting Physician: Dr. Mac Attending Physician: Mahesh Mac MD History of Present Illness The patient is an 86-year-old female whose ongoing issues are as listed below but notably include 1. Acute DVT left lower extremity, spontaneous August 2021 treated with 3 months oral Eliquis 2. Hypertension 3. Chronic obstructive lung disease 4. Type 2 diabetes mellitus 5. Rey's esophagus 6. Pancreatic cyst patient declining EUS 2012 Patient was examined in the presence of granddaughter who aids in history. Patient presents this admission after being found unable to stand sitting on the toilet yesterday. Family notes having tried to contact the patient without response and found patient immobile on toilet. No acute neurologic complaints but generalized weakness. Family feels she was sitting there and mobile for at least 2 hours. Patient denied any chest pain or worsening shortness of breath. Noted no true syncope or near syncope though only fair historian. Main complaint generalized weakness. Notes no recent fevers chills or unexplained infections. No bleeding difficulties. Tolerated Eliquis well during recent treatment for DVT in August. No worsening edema. Denies any specific complaints of dysuria hematuria. Notes no cough or worsening shortness of breath. Appetite is only fair per granddaughter. Weight down 6 to 10 pounds over the last year She presented to the emergency room with atrial fibrillation with very rapid ventricular response rate. Patient spontaneously converted to sinus rhythm after IV diltiazem. Currently feels tired and weak but no acute complaints. No pleuritic discomfort on deep inspiration. No hypoxia EKG on presentation 05/11/2022, 00 54: Atrial fibrillation with very rapid ventricular response, rate [address] segment changes EKG postconversion 05/11/2022 01 59: Sinus rhythm with minor ST segment abnormalities nonspecific with resolve of abnormalities during tachycardia Echocardiogram pending Allergies Allergy/AdvReac Type Severity Reaction Status Date / Time Penicillins Allergy Unknown CAN'T Verified 05/11/22 01:33 REMEMBER prednisone AdvReac Intermediate irritabilit Verified 05/11/22 01:33 y Home Medications Medication Instructions Recorded Confirmed Type acetaminophen 325 mg tablet 650 mg PO QID PRN Pain 02/22/21 05/11/22 History (Tylenol) lorazepam 0.5 mg tablet 0.5 mg PO TID PRN Anxiety 02/22/21 05/11/22 History phenylephrine 0.25 %-mineral oil 1 applic [place] BID PRN hemorrhoids 02/22/21 05/11/22 Rx 14 %-petrolatm 74.9 % rectal #28 grams ointment (Preparation H) Patient History Medical History COPD (chronic obstructive pulmonary disease) (03/04/14) JOSE (generalized anxiety disorder) (03/04/14) History of diverticulosis Lower GI bleed Surgical History H/O tubal ligation Family History Other Family history non-contributory Social History Smoking Status: Never smoker Hx Alcohol Use: No Hx Substance Use: No Preferred Language: Burkinan Communication Ability: Effective Slide Machine Tender Required: No Beliefs That Will Affect Care: None Current Living Situation: Alone Feels Safe at Home: Yes Safety Concerns: Feels Safe At This Time Assistive Devices: Cane Review of Systems Review of Systems: All systems reviewed & are unremarkable except as noted in HPI & below Physical Exam Constitutional: + thin; no acute distress Eyes: PERRL, conjunctivae normal, anicteric sclerae ENMT: external ear and nose normal, oropharynx normal Neck: trachea midline, no thyromegaly Respiratory: normal respiratory effort, lungs clear to auscultation Cardiovascular: Rate/Rhythm: regular rate and regular rhythm Heart Sounds: normal S1, normal S2 and + murmur Vessels: normal carotid upstroke; no JVD Extremities: no edema Gastrointestinal (Abdomen): normal bowel sounds, soft, nontender, no hepatosplenomegaly Musculoskeletal: no cyanosis or clubbing, extremities motor strength 5/5 Neurologic: PERRL, EOMI, accommodation nl, no face palsy, no dysarthria Results & Data ([facility]) Vital Signs (Past 12 Hours) Vital Signs Temp Pulse Pulse Resp BP BP Pulse Ox 05/11/22 09:10 36.9 C 77 24 112/68 98 05/11/22 05:40 138/79 05/11/22 05:40 72 25 H 98 05/11/22 05:31 72 27 H 90 05/11/22 05:31 146/86 H 05/11/22 05:30 77 21 97 05/11/22 05:20 129/75 05/11/22 05:20 95 H 34 H 94 05/11/22 05:10 122/69 05/11/22 05:10 69 22 92 05/11/22 05:00 80 27 H 97 05/11/22 05:00 141/84 H 05/11/22 04:50 144/77 H 05/11/22 04:50 75 21 98 05/11/22 04:40 79 21 92 05/11/22 04:40 170/99 H 05/11/22 04:30 84 30 H 98 05/11/22 04:30 133/76 05/11/22 04:20 78 30 H 95 05/11/22 04:20 122/74 05/11/22 04:10 115/74 05/11/22 04:10 77 25 H 98 05/11/22 04:00 81 33 H 96 05/11/22 04:00 119/69 05/11/22 03:50 118/74 05/11/22 03:50 82 32 H 97 05/11/22 03:40 82 22 92 05/11/22 03:40 116/80 05/11/22 03:30 76 29 H 98 05/11/22 03:30 112/63 05/11/22 03:20 108/59 L 05/11/22 03:20 81 30 H 94 05/11/22 03:10 81 26 H 97 05/11/22 03:10 108/65 05/11/22 03:00 81 23 05/11/22 03:00 110/71 05/11/22 02:50 125/69 05/11/22 02:50 78 27 H 05/11/22 02:40 93/59 L 05/11/22 02:40 79 23 05/11/22 02:30 85 26 H 05/11/22 02:30 118/68 05/11/22 02:20 114/61 05/11/22 02:20 75 25 H 96 05/11/22 02:10 110/63 05/11/22 02:10 76 28 H 96 05/11/22 02:00 85 27 H 96 05/11/22 02:00 113/61 05/11/22 01:50 98/61 L 05/11/22 01:50 137 H 24 97 05/11/22 01:40 111/62 05/11/22 01:40 136 H 29 H 96 05/11/22 01:30 101/62 05/11/22 01:30 115 H 26 H 101/62 97 05/11/22 01:20 143 H 31 H 95 05/11/22 01:20 105/74 O2 Del Method 05/11/22 09:10 Room Air 05/11/22 05:40 05/11/22 05:40 05/11/22 05:31 05/11/22 05:31 05/11/22 05:30 05/11/22 05:20 05/11/22 05:20 05/11/22 05:10 05/11/22 05:10 05/11/22 05:00 05/11/22 05:00 05/11/22 04:50 05/11/22 04:50 05/11/22 04:40 05/11/22 04:40 05/11/22 04:30 05/11/22 04:30 05/11/22 04:20 05/11/22 04:20 05/11/22 04:10 05/11/22 04:10 05/11/22 04:00 05/11/22 04:00 05/11/22 03:50 05/11/22 03:50 05/11/22 03:40 05/11/22 03:40 05/11/22 03:30 05/11/22 03:30 05/11/22 03:20 05/11/22 03:20 05/11/22 03:10 05/11/22 03:10 05/11/22 03:00 05/11/22 03:00 05/11/22 02:50 05/11/22 02:50 05/11/22 02:40 05/11/22 02:40 05/11/22 02:30 05/11/22 02:30 05/11/22 02:20 05/11/22 02:20 05/11/22 02:10 05/11/22 02:10 05/11/22 02:00 05/11/22 02:00 05/11/22 01:50 05/11/22 01:50 05/11/22 01:40 05/11/22 01:40 05/11/22 01:30 05/11/22 01:30 05/11/22 01:20 05/11/22 01:20 Laboratory Results Laboratory Results - last 24 hr 05/11/22 05/11/22 05/11/22 00:59 01:00 01:00 WBC 33.85 H* RBC 5.20 Hgb 15.0 Hct 44.5 MCV 85.6 MCH 28.8 MCHC 33.7 RDW Std Deviation 45.7 RDW Coeff of Shilpa 14.6 H Plt Count 307 MPV 10.5 Immature Gran % (Auto) 1.4 Neut % (Auto) 88.2 Lymph % (Auto) 1.9 [place] % (Auto) 8.2 Eos % (Auto) 0.0 Baso % (Auto) 0.3 Neut # (Auto) 29.82 H Lymph # (Auto) 0.66 L [place] # (Auto) 2.79 H Eos # (Auto) 0.00 Baso # (Auto) 0.10 Immature Gran # (Auto) 0.48 H PT 10.9 INR 1.0 APTT 22.8 PTT Ratio 0.8 Sodium Potassium Chloride Carbon Dioxide Anion Gap BUN Creatinine Est Cr Clr Drug Dosing Est GFR ( Amer) Est GFR (Non-Af Amer) BUN/Creatinine Ratio Glucose POC Glucose Lactate Calcium Total Bilirubin AST ALT Alkaline Phosphatase Troponin I High Sens Total Protein Albumin Globulin Albumin/Globulin Ratio Urine Color Urine Appearance Urine pH Ur Specific Clemons Urine Protein Urine Glucose (UA) Urine Ketones Urine Blood Urine Nitrite Urine Bilirubin Urine Urobilinogen Ur Leukocyte Esterase Urine WBC (Auto) Urine RBC (Auto) U Hyaline Cast (Auto) U Epithel Cells (Auto) Urine Bacteria (Auto) Urine Yeast SARS-CoV-2, RNA, NAAT NEGATIVE 05/11/22 05/11/22 05/11/22 01:00 02:23 03:00 WBC RBC Hgb Hct MCV MCH MCHC RDW Std Deviation RDW Coeff of Shilpa Plt Count MPV Immature Gran % (Auto) Neut % (Auto) Lymph % (Auto) [place] % (Auto) Eos % (Auto) Baso % (Auto) Neut # (Auto) Lymph # (Auto) [place] # (Auto) Eos # (Auto) Baso # (Auto) Immature Gran # (Auto) PT INR APTT PTT Ratio Sodium 135 L Potassium 3.9 Chloride 98 Carbon Dioxide 20 L Anion Gap 17 H BUN 15 Creatinine 1.22 H Est Cr Clr Drug Dosing Not Reportable Est GFR ( Amer) 45.8 Est GFR (Non-Af Amer) 39.5 BUN/Creatinine Ratio 12.3 Glucose 403 H* POC Glucose Lactate 2.9 H* Calcium 9.4 Total Bilirubin 1.0 AST 17 ALT 11 Alkaline Phosphatase 83 Troponin I High Sens 71.5 H* Total Protein 6.8 Albumin 3.7 Globulin 3.1 Albumin/Globulin Ratio 1.2 Urine Color Yellow Urine Appearance Turbid A Urine pH 5.0 Ur Specific Clemons 1.021 Urine Protein 2+ H Urine Glucose (UA) 3+ H Urine Ketones 1+ H Urine Blood 1+ H Urine Nitrite Positive A Urine Bilirubin Negative Urine Urobilinogen Negative Ur Leukocyte Esterase 2+ H Urine WBC (Auto) >30 H Urine RBC (Auto) 5-10 H U Hyaline Cast (Auto) 1-5 U Epithel Cells (Auto) >30 H Urine Bacteria (Auto) 4+ H Urine Yeast Present A SARS-CoV-2, RNA, NAAT 05/11/22 05/11/22 05/11/22 04:29 04:37 07:24 WBC RBC Hgb Hct MCV MCH MCHC RDW Std Deviation RDW Coeff of Shilpa Plt Count MPV Immature Gran % (Auto) Neut % (Auto) Lymph % (Auto) [place] % (Auto) Eos % (Auto) Baso % (Auto) Neut # (Auto) Lymph # (Auto) [place] # (Auto) Eos # (Auto) Baso # (Auto) Immature Gran # (Auto) PT INR APTT PTT Ratio Sodium 136 Potassium 3.6 Chloride 103 Carbon Dioxide 22 Anion Gap 11 BUN 17 Creatinine 1.05 Est Cr Clr Drug Dosing Not Reportable Est GFR ( Amer) 54.9 Est GFR (Non-Af Amer) 47.4 BUN/Creatinine Ratio 16.2 Glucose 323 H* POC Glucose 380 H* Lactate 3.1 H* Calcium 8.4 L Total Bilirubin AST ALT Alkaline Phosphatase Troponin I High Sens 1187.7 H* D Total Protein Albumin Globulin Albumin/Globulin Ratio Urine Color Urine Appearance Urine pH Ur Specific Clemons Urine Protein Urine Glucose (UA) Urine Ketones Urine Blood Urine Nitrite Urine Bilirubin Urine Urobilinogen Ur Leukocyte Esterase Urine WBC (Auto) Urine RBC (Auto) U Hyaline Cast (Auto) U Epithel Cells (Auto) Urine Bacteria (Auto) Urine Yeast SARS-CoV-2, RNA, NAAT 05/11/22 05/11/22 05/11/22 07:24 07:37 12:02 WBC 33.13 H* RBC 4.48 Hgb 13.0 Hct 38.5 MCV 85.9 MCH 29.0 MCHC 33.8 RDW Std Deviation 46.9 H RDW Coeff of Shilpa 14.8 H Plt Count 275 MPV 10.1 Immature Gran % (Auto) 0.9 Neut % (Auto) 83.3 Lymph % (Auto) 5.5 [place] % (Auto) 10.0 Eos % (Auto) 0.0 Baso % (Auto) 0.3 Neut # (Auto) 27.63 H Lymph # (Auto) 1.82 [place] # (Auto) 3.30 H Eos # (Auto) 0.00 Baso # (Auto) 0.09 Immature Gran # (Auto) 0.29 H PT INR APTT PTT Ratio Sodium Potassium Chloride Carbon Dioxide Anion Gap BUN Creatinine Est Cr Clr Drug Dosing Est GFR ( Amer) Est GFR (Non-Af Amer) BUN/Creatinine Ratio Glucose POC Glucose 296 H 347 H* Lactate Calcium Total Bilirubin AST ALT Alkaline Phosphatase Troponin I High Sens Total Protein Albumin Globulin Albumin/Globulin Ratio Urine Color Urine Appearance Urine pH Ur Specific Clemons Urine Protein Urine Glucose (UA) Urine Ketones Urine Blood Urine Nitrite Urine Bilirubin Urine Urobilinogen Ur Leukocyte Esterase Urine WBC (Auto) Urine RBC (Auto) U Hyaline Cast (Auto) U Epithel Cells (Auto) Urine Bacteria (Auto) Urine Yeast SARS-CoV-2, RNA, NAAT 05/11/22 12:03 WBC RBC Hgb Hct MCV MCH MCHC RDW Std Deviation RDW Coeff of Shilpa Plt Count MPV Immature Gran % (Auto) Neut % (Auto) Lymph % (Auto) [place] % (Auto) Eos % (Auto) Baso % (Auto) Neut # (Auto) Lymph # (Auto) [place] # (Auto) Eos # (Auto) Baso # (Auto) Immature Gran # (Auto) PT INR APTT PTT Ratio Sodium Potassium Chloride Carbon Dioxide Anion Gap BUN Creatinine Est Cr Clr Drug Dosing Est GFR ( Amer) Est GFR (Non-Af Amer) BUN/Creatinine Ratio Glucose POC Glucose 313 H* Lactate Calcium Total Bilirubin AST ALT Alkaline Phosphatase Troponin I High Sens Total Protein Albumin Globulin Albumin/Globulin Ratio Urine Color Urine Appearance Urine pH Ur Specific Clemons Urine Protein Urine Glucose (UA) Urine Ketones Urine Blood Urine Nitrite Urine Bilirubin Urine Urobilinogen Ur Leukocyte Esterase Urine WBC (Auto) Urine RBC (Auto) U Hyaline Cast (Auto) U Epithel Cells (Auto) Urine Bacteria (Auto) Urine Yeast SARS-CoV-2, RNA, NAAT
[2022-05-11] MEDS: METOPROLOL SUCC 25MG EXT REL TAB PO SCH (14:42)
[2022-05-11] MEDS: LORazepam 0.5 MG TAB PO PRN ×2 (14:53→20:40)
[2022-05-11 14:57] LABS: Partial Thromboplastin Ratio 1.1; Partial Thromboplastin Time 30.9 Seconds (21.0-31.0)
--- NOTE | 2022-05-11 15:20 | Pharmacy Report ---
Pharmacy Glycemic Short Note 2 - Date of Service May 11, 2022 - Glycemic Short BSG Results (Last 24 hours): 05/11/22 05/11/22 05/11/22 01:00 04:29 07:24 Glucose 403 H* 323 H* POC Glucose 380 H* 05/11/22 05/11/22 05/11/22 07:37 12:02 12:03 Glucose POC Glucose 296 H 347 H* 313 H* OUTPATIENT ANTIDIABETIC REGIMEN: * N/A * HbA1C pending ASSESSMENT: * Ms Francis is an 86 y/o F who presents with weakness and atrial fibrillation. * Patient's BSG on admission was 403 mg/dL for which she received a 6 unit IV bolus. * BSG in the morning was 296 mg/dL. Noon BSG was 313 mg/dL. * Patient received 15 units of Lantus at 10 AM + Novolog 10 units as correction. * With lunch BSG of 313 mg/dL - tightened CF slightly and ordered 1500 check to ensure patient was trending down. CF on 1500 check looser to prevent overcorrection. Hesitant to give IV insulin due to K of 3.6 * Lantus scale for the evening based upon BSG. Re-evaluate Lantus in AM. * Currently Novolog tighter than weight-based stress of 3 which is appropriate in NPO setting. PLAN FOR INPATIENT GLYCEMIC CONTROL: * Hold outpatient oral diabetes medications * Basal insulin * Lantus 15 units SQ x 1 then 0-15 units SQ BID * Bolus insulin * NovoLog per scale ACHS or Q6hrs while NPO * Goal Range: Low 110 mg/dL - High 140 mg/dL * Correction Factor: 18 mg/dL/unit * Nutritional / Prandial insulin per carb ratio of 1 unit per 6 grams CHO consumed
[2022-05-11] MEDS ORDERED: HEPARIN SOD (PORCINE) 1000 UNIT/ML IV ONE (16:00)
[2022-05-11] MEDS: ACETAMINOPHEN 325 MG TAB PO PRN (16:24)
[2022-05-11] MEDS: Heparin IV Adult Wt-Based Low-Dose *NO* Bolus Protocol IV SCH ×4 (19:13→19:50)
[2022-05-11] MEDS ORDERED: Nursing to Pharmacy Communication SCH (21:00)
[2022-05-11] MEDS: CEFEPIME 2,000 MG in SYRINGE 0 ML IV SCH (21:28)
--- NOTE | 2022-05-11 21:47 | Electrocardiogram Report ---
Test Reason : Blood Pressure : / mmHG Vent. Rate : 184 BPM Atrial Rate : 174 BPM P-R Int : 000 ms QRS Dur : 082 ms QT Int : 230 ms P-R-T Axes : 000 026 184 degrees QTc Int : 402 ms Poor data quality, interpretation may be adversely affected Atrial fibrillation with rapid ventricular response Abnormal ECG When compared with ECG of 04-MAR-2014 01:47, Atrial fibrillation has replaced Sinus rhythm Vent. rate has increased BY [address] more depressed in Anterolateral leads Confirmed by Marcio Harris ([id number]) on 05/11/2022 9:47:35 PM Referred By: REFERRED SELF Confirmed By:Marcio Harris
[2022-05-11 22:07] LABS: Partial Thromboplastin Ratio 1.7
[2022-05-11 22:08] LABS: Partial Thromboplastin Time 46.8 Seconds (21.0-31.0)
--- NOTE | 2022-05-12 05:06 | Electrocardiogram Report ---
Test Reason : Blood Pressure : / mmHG Vent. Rate : 129 BPM Atrial Rate : 127 BPM P-R Int : 000 ms QRS Dur : 084 ms QT Int : 352 ms P-R-T Axes : 000 020 012 degrees QTc Int : 515 ms Atrial fibrillation with rapid ventricular response Nonspecific ST abnormality Abnormal ECG When compared with ECG of 11-MAY-2022 00:54, ST less depressed in Anterolateral leads Confirmed by Marcio Harris ([id number]) on 05/12/2022 5:05:18 AM Referred By: REFERRED SELF Confirmed By:Marcio Harris
--- NOTE | 2022-05-12 05:08 | Electrocardiogram Report ---
Test Reason : Blood Pressure : / mmHG Vent. Rate : 077 BPM Atrial Rate : 077 BPM P-R Int : 188 ms QRS Dur : 080 ms QT Int : 428 ms P-R-T Axes : 058 012 032 degrees QTc Int : 484 ms Sinus rhythm Premature atrial complexes Nonspecific ST abnormality Abnormal ECG When compared with ECG of 11-MAY-2022 01:01, Sinus rhythm has replaced Atrial fibrillation Vent. rate has decreased BY 52 BPM Confirmed by Marcio Harris ([id number]) on 05/12/2022 5:08:24 AM Referred By: REFERRED SELF Confirmed By:Marcio Harris
[2022-05-12] MEDS: SODIUM CHLORIDE 0.9% 1000ML 1,000 ML IV SCH (05:50)
--- NOTE | 2022-05-12 07:39 | Hospitalist Progress Note ---
Date of Service May 12, 2022 Assessment & Plan (1) Paroxysmal atrial fibrillation with rapid ventricular response: (2) Acute hyperglycemia: (3) Acute UTI (urinary tract infection): (4) Leukocytosis: Plan: 86 yo F who presents for weakness and found to have rapid atrial fibrillation, probably mild diabetic ketoacidosis and sepsis with urinary tract infection. 1. Rapid atrial fibrillation: ER started on Cardizem drip, which was continued. Started on low-dose IV heparin. Plan to switch to Eliquis. Cardiac enzymes elevated. Peak at 1000, now trended down. secondary to demand ischemia from rapid rate on presentation, underlying ischemic heart disease. Echo obtained -LV is normal in size. Moderate concentric LVH. LV wall motion is normal. EF 60 to 65%. Dysfunction, grade 2. Aortic valve leaflets are mild to moderately calcified with mild restriction of leaflet mobility with mildly elevated outflow velocity. No hemodynamically significant valvular aortic stenosis. Trace aortic regurg. There is moderate to severe mitral valve annular calcification and mild restriction and thickening of the mitral valve leaflets. No significant mitral valve stenosis. There is trace mitral regurg. There is mild tricuspid regurg. Cardiology consulted - started on beta-connor, metoprolol succinate 12.5 mg daily. Continue IV heparin for now, goal is to transition to Eliquis. 2. Sepsis - with elevated white count, urinary tract infection and elevated lactic acid 2.9: Started on fluids and cefepime. We will follow the cultures. 3. Elevated blood sugars possible mild diabetic ketoacidosis: Received IV insulin and fluids on admission. Current A1c 12.1% Lantus and ISS. Glycemic pharmacy consulted. Continue to [facility] monitor. 4. Depression and anxiety: On Ativan p.r.n. 6. Hypertension: Not on any medications. We will monitor the blood pressure. 7. History of aortic aneurysm without rupture: Follow echocardiogram, as above. 8. History of chronic obstructive pulmonary disease and asthma as per records: Not on any inhalers.Will monitor. 9. Weakness Mostly from above.Pt/Ot when stable. DVT prophylaxis: On IV heparin. DISPOSITION: tele floor. CODE: full code as per discussion with the daughter. Admission and Anticipated Discharge Date Admission Date: May 11, 2022 Subjective Pt seen in follow up of afib w/ rvr, weakness, elev. WBC /likely UTI Currently sitting up in bed, eating breakfast, no distress Denies any fevers chills, chest pain or shortness of breath, palpitations abdominal pain, dysuria WBC improved - down to 14K HR controlled as well HbA1c 12.1% Review of Systems Review of Systems: All systems reviewed & are unremarkable except as noted in Subjective Physical Exam Physical Exam: GENERAL: elderly frail F, not in acute distress. HEENT:NC/AT. EOMI. Pupils equal, round and reactive to light. Oral mucosa dry. NECK: No JVD or neck masses. CARDIOVASCULAR: S1 and S2 heard. RRR. No murmur, no gallop. RESPIRATORY: Normal AP diameter. No accessory muscle use. No wheezing, no crackles. ABDOMEN: Soft, bowel sounds present, nontender, no distention. NEURO: Alert and oriented. Speech is clear. No facial droop. Insight is okay. Obeys simple commands. Moves extremities. EXTREMITIES: No edema, no erythema. Results & Data Results & Data ([facility]) Vital Signs (Past 12 Hours) Vital Signs Temp Pulse Pulse Resp BP Pulse Ox O2 Del Method 05/12/22 03:26 36.9 C 65 18 144/80 H 95 Room Air 05/11/22 22:15 64 05/11/22 19:45 Room Air 05/11/22 23:00 36.8 C 65 22 111/71 96 Room Air 05/11/22 20:11 36.7 C 69 18 118/72 95 Room Air Laboratory Results 05/12/22 05/12/22 05/12/22 Range/Units 07:49 07:32 07:32 WBC (4.8-10.8) K/ul RBC (3.93-5.22) M/uL Hgb (12.0-16.0) g/dl Hct (34.1-44.9) % MCV (80.0-100.0) fL MCH (25.0-34.0) pg MCHC (32.0-36.0) g/dL RDW Std Deviation (36.4-46.3) fL RDW Coeff of Shilpa (11.5-14.5) % Plt Count (130-400) K/uL MPV (9.4-12.3) fL Immature Gran % (Auto) % Neut % (Auto) % Lymph % (Auto) % Atkinson % (Auto) % Eos % (Auto) % Baso % (Auto) % Neut # (Auto) (1.4-6.5) K/uL Lymph # (Auto) (1.2-3.4) K/uL Atkinson # (Auto) (0.24-0.82) K/uL Eos # (Auto) (0-0.50) K/uL Baso # (Auto) (0-0.2) K/uL Immature Gran # (Auto) (0.00-0.02) K/uL APTT 43.3 H (21.0-31.0) Seconds PTT Ratio 1.6 Sodium (136-145) mmol/L Potassium (3.5-5.1) mmol/L Chloride (98-107) mmol/L Carbon Dioxide (21-32) mmol/L Anion Gap (3-11) BUN (6-23) mg/dl Creatinine (0.6-1.2) mg/dl Est Cr Clr Drug Dosing ml/min Est GFR ( Amer) ml/min Est GFR (Non-Af Amer) ml/min BUN/Creatinine Ratio (10-20) Glucose (70-99(Fasting)) mg/dl POC Glucose 123 H (70-99) mg/dl Estimat Average Glucose mg/dl Hemoglobin A1c (4.5-5.6) % Calcium (8.5-10.1) mg/dl Phosphorus Cancelled (2.5-4.9) mg/dl Magnesium (1.7-2.4) mg/dl Troponin I High Sens (0-14) pg/ml 05/12/22 05/12/22 05/12/22 Range/Units 07:32 07:32 07:32 WBC 14.19 H (4.8-10.8) K/ul RBC 4.10 (3.93-5.22) M/uL Hgb 11.9 L (12.0-16.0) g/dl Hct 34.9 (34.1-44.9) % MCV 85.1 (80.0-100.0) fL MCH 29.0 (25.0-34.0) pg MCHC 34.1 (32.0-36.0) g/dL RDW Std Deviation 47.1 H (36.4-46.3) fL RDW Coeff of Shilpa 15.2 H (11.5-14.5) % Plt Count 254 (130-400) K/uL MPV 10.4 (9.4-12.3) fL Immature Gran % (Auto) 0.5 % Neut % (Auto) 71.7 % Lymph % (Auto) 18.3 % Atkinson % (Auto) 8.0 % Eos % (Auto) 1.0 % Baso % (Auto) 0.5 % Neut # (Auto) 10.19 H (1.4-6.5) K/uL Lymph # (Auto) 2.59 (1.2-3.4) K/uL Atkinson # (Auto) 1.13 H (0.24-0.82) K/uL Eos # (Auto) 0.14 (0-0.50) K/uL Baso # (Auto) 0.07 (0-0.2) K/uL Immature Gran # (Auto) 0.07 H (0.00-0.02) K/uL APTT (21.0-31.0) Seconds PTT Ratio Sodium 138 (136-145) mmol/L Potassium 3.3 L (3.5-5.1) mmol/L Chloride 109 H (98-107) mmol/L Carbon Dioxide 22 (21-32) mmol/L Anion Gap 7 (3-11) BUN 17 (6-23) mg/dl Creatinine 0.69 D (0.6-1.2) mg/dl Est Cr Clr Drug Dosing 56.6 ml/min Est GFR ( Amer) 90.1 ml/min Est GFR (Non-Af Amer) 77.7 ml/min BUN/Creatinine Ratio 24.6 H (10-20) Glucose 128 H (70-99(Fasting)) mg/dl POC Glucose (70-99) mg/dl Estimat Average Glucose 301 mg/dl Hemoglobin A1c 12.1 H (4.5-5.6) % Calcium 7.9 L (8.5-10.1) mg/dl Phosphorus 2.2 L (2.5-4.9) mg/dl Magnesium 1.7 (1.7-2.4) mg/dl Troponin I High Sens (0-14) pg/ml 05/11/22 05/11/22 05/11/22 Range/Units 21:24 21:24 20:16 WBC (4.8-10.8) K/ul RBC (3.93-5.22) M/uL Hgb (12.0-16.0) g/dl Hct (34.1-44.9) % MCV (80.0-100.0) fL MCH (25.0-34.0) pg MCHC (32.0-36.0) g/dL RDW Std Deviation (36.4-46.3) fL RDW Coeff of Shilpa (11.5-14.5) % Plt Count (130-400) K/uL MPV (9.4-12.3) fL Immature Gran % (Auto) % Neut % (Auto) % Lymph % (Auto) % Atkinson % (Auto) % Eos % (Auto) % Baso % (Auto) % Neut # (Auto) (1.4-6.5) K/uL Lymph # (Auto) (1.2-3.4) K/uL Atkinson # (Auto) (0.24-0.82) K/uL Eos # (Auto) (0-0.50) K/uL Baso # (Auto) (0-0.2) K/uL Immature Gran # (Auto) (0.00-0.02) K/uL APTT 46.8 H* (21.0-31.0) Seconds PTT Ratio 1.7 Sodium (136-145) mmol/L Potassium (3.5-5.1) mmol/L Chloride (98-107) mmol/L Carbon Dioxide (21-32) mmol/L Anion Gap (3-11) BUN (6-23) mg/dl Creatinine (0.6-1.2) mg/dl Est Cr Clr Drug Dosing ml/min Est GFR ( Amer) ml/min Est GFR (Non-Af Amer) ml/min BUN/Creatinine Ratio (10-20) Glucose (70-99(Fasting)) mg/dl POC Glucose 241 H (70-99) mg/dl Estimat Average Glucose mg/dl Hemoglobin A1c (4.5-5.6) % Calcium (8.5-10.1) mg/dl Phosphorus (2.5-4.9) mg/dl Magnesium (1.7-2.4) mg/dl Troponin I High Sens 867.6 H* D (0-14) pg/ml 05/11/22 05/11/22 05/11/22 Range/Units 15:19 14:33 14:33 WBC (4.8-10.8) K/ul RBC (3.93-5.22) M/uL Hgb (12.0-16.0) g/dl Hct (34.1-44.9) % MCV (80.0-100.0) fL MCH (25.0-34.0) pg MCHC (32.0-36.0) g/dL RDW Std Deviation (36.4-46.3) fL RDW Coeff of Shilpa (11.5-14.5) % Plt Count (130-400) K/uL MPV (9.4-12.3) fL Immature Gran % (Auto) % Neut % (Auto) % Lymph % (Auto) % Atkinson % (Auto) % Eos % (Auto) % Baso % (Auto) % Neut # (Auto) (1.4-6.5) K/uL Lymph # (Auto) (1.2-3.4) K/uL Atkinson # (Auto) (0.24-0.82) K/uL Eos # (Auto) (0-0.50) K/uL Baso # (Auto) (0-0.2) K/uL Immature Gran # (Auto) (0.00-0.02) K/uL APTT 30.9 (21.0-31.0) Seconds PTT Ratio 1.1 Sodium (136-145) mmol/L Potassium (3.5-5.1) mmol/L Chloride (98-107) mmol/L Carbon Dioxide (21-32) mmol/L Anion Gap (3-11) BUN (6-23) mg/dl Creatinine (0.6-1.2) mg/dl Est Cr Clr Drug Dosing ml/min Est GFR ( Amer) ml/min Est GFR (Non-Af Amer) ml/min BUN/Creatinine Ratio (10-20) Glucose (70-99(Fasting)) mg/dl POC Glucose 188 H (70-99) mg/dl Estimat Average Glucose mg/dl Hemoglobin A1c (4.5-5.6) % Calcium (8.5-10.1) mg/dl Phosphorus (2.5-4.9) mg/dl Magnesium (1.7-2.4) mg/dl Troponin I High Sens 1377.7 H* (0-14) pg/ml 05/11/22 05/11/22 Range/Units 12:03 12:02 WBC (4.8-10.8) K/ul RBC (3.93-5.22) M/uL Hgb (12.0-16.0) g/dl Hct (34.1-44.9) % MCV (80.0-100.0) fL MCH (25.0-34.0) pg MCHC (32.0-36.0) g/dL RDW Std Deviation (36.4-46.3) fL RDW Coeff of Shilpa (11.5-14.5) % Plt Count (130-400) K/uL MPV (9.4-12.3) fL Immature Gran % (Auto) % Neut % (Auto) % Lymph % (Auto) % Atkinson % (Auto) % Eos % (Auto) % Baso % (Auto) % Neut # (Auto) (1.4-6.5) K/uL Lymph # (Auto) (1.2-3.4) K/uL Atkinson # (Auto) (0.24-0.82) K/uL Eos # (Auto) (0-0.50) K/uL Baso # (Auto) (0-0.2) K/uL Immature Gran # (Auto) (0.00-0.02) K/uL APTT (21.0-31.0) Seconds PTT Ratio Sodium (136-145) mmol/L Potassium (3.5-5.1) mmol/L Chloride (98-107) mmol/L Carbon Dioxide (21-32) mmol/L Anion Gap (3-11) BUN (6-23) mg/dl Creatinine (0.6-1.2) mg/dl Est Cr Clr Drug Dosing ml/min Est GFR ( Amer) ml/min Est GFR (Non-Af Amer) ml/min BUN/Creatinine Ratio (10-20) Glucose (70-99(Fasting)) mg/dl POC Glucose 313 H* 347 H* (70-99) mg/dl Estimat Average Glucose mg/dl Hemoglobin A1c (4.5-5.6) % Calcium (8.5-10.1) mg/dl Phosphorus (2.5-4.9) mg/dl Magnesium (1.7-2.4) mg/dl Troponin I High Sens (0-14) pg/ml Medications Administered Current Inpatient Medications Acetaminophen (Acetaminophen 325 Mg Tab) 650 mg PO Q4H PRN PRN Reason: Pain or Fever Stop: 06/10/22 06:42 Last Admin: 05/11/22 16:24 Dose: 650 mg Diltiazem HCl 125 mg/ Dextrose 125 mls @ 5 mls/hr IV .Q24H [facility]; Protocol Stop: 06/10/22 00:59 Last Titration: 05/12/22 07:07 Dose: 5 mg/hr, 5 mls/hr Heparin Sodium/Dextrose (Heparin Sodium/Dextrose) 25,000 units in 500 mls @ 19 mls/hr IV .Q24H [facility]; Protocol Stop: 06/10/22 06:42 Last Titration: 05/12/22 07:07 Dose: 950 units/hr, 19 mls/hr Cefepime HCl 2,000 mg/ Syringe 20 mls @ 5 mls/min IV DAILY@2200 [facility]; Protocol Stop: 05/21/22 21:59 Last Admin: 05/11/22 21:28 Dose: 5 mls/min Insulin Aspart (Insulin Aspart Per Unit) 0 units SC ACHS [facility] Stop: 06/10/22 20:59 Last Admin: 05/11/22 20:35 Dose: 6 units Lorazepam (Lorazepam 0.5 Mg Tab) 0.5 mg PO TID PRN PRN Reason: Anxiety Stop: 06/10/22 06:42 Last Admin: 05/11/22 20:40 Dose: 0.5 mg Metoprolol Succinate (Metoprolol Succ 25mg Ext Rel Tab) 12.5 mg PO QAM [facility] Stop: 06/10/22 13:44 Last Admin: 05/11/22 14:42 Dose: 12.5 mg Miscellaneous (Preparation H ~ Order Awaiting Action) 1 each N/A QS [facility] Stop: 06/10/22 07:59 Last Admin: 05/11/22 23:06 Dose: Not Given Miscellaneous Information (Pharmacy Glycemic Mgmt Consult) 1 each N/A UD PRN; Protocol PRN Reason: Consult Stop: 06/10/22 08:02 Nitroglycerin (Nitroglycerin Sl 0.4 Mg/Tab Tab) 0.4 mg SL UD PRN PRN Reason: Chest Pain Stop: 06/10/22 06:42 Polyethylene Glycol (Polyethylene (Miralax) 17 Gm Pack) 17 gm PO DAILY PRN PRN Reason: Constipation Stop: 06/10/22 06:42
[2022-05-12] MEDS: METOPROLOL SUCC 25MG EXT REL TAB PO SCH ×2 (08:09→20:32)
[2022-05-12 08:12] LABS: Basophils # (auto) 0.07 K/uL (0-0.2); Basophils % (auto) 0.5 %; Eosinophils # (auto) 0.14 K/uL (0-0.50); Hematocrit (blood only) 34.9 % (34.1-44.9); Hemoglobin 11.9 g/dl (12.0-16.0); Immature Granulocytes # (auto) 0.07 K/uL (0.00-0.02); Immature Granulocytes % (auto) 0.5 %; Lymphocytes # (auto) 2.59 K/uL (1.2-3.4); Lymphocytes % (auto) 18.3 %; Mean Corpuscular Hgb Conc 34.1 g/dL (32.0-36.0); Mean Corpuscular Volume 85.1 fL (80.0-100.0); Mean Platelet Volume 10.4 fL (9.4-12.3); Monocytes # (auto) 1.13 K/uL (0.24-0.82); Neutrophils # (auto) 10.19 K/uL (1.4-6.5); Neutrophils % (auto) 71.7 %; Platelet Count 254 K/uL (130-400); RDW Coefficient of Variation 15.2 % (11.5-14.5); RDW Standard Deviation 47.1 fL (36.4-46.3); White Blood Count 14.19 K/ul (4.8-10.8)
[2022-05-12 08:38] LABS: BUN Creatinine Ratio 24.6 (10-20); Calcium 7.9 mg/dl (8.5-10.1); Creatinine Clr Calc Pharmacy 56.6 ml/min; Est GFR (African American) 90.1 ml/min; Est GFR (Non-African American) 77.7 ml/min; Magnesium 1.7 mg/dl (1.7-2.4); Phosphorus 2.2 mg/dl (2.5-4.9); Potassium 3.3 mmol/L (3.5-5.1)
[2022-05-12 08:39] LABS: Partial Thromboplastin Ratio 1.6; Partial Thromboplastin Time 43.3 Seconds (21.0-31.0)
[2022-05-12 09:13] LABS: Estimated Average Glucose 301 mg/dl; Hemoglobin A1C 12.1 % (4.5-5.6)
[2022-05-12] MEDS ORDERED: POTASSIUM CHLORIDE CRTAB 20 MEQ TABCR PO STA ×2 (09:21→13:51)
[2022-05-12] MEDS: INSULIN ASPART PER UNIT SC SCH ×4 (09:57→20:32)
[2022-05-12] MEDS: MAGNESIUM OXIDE 400 MG TAB PO SCH (10:29)
--- NOTE | 2022-05-12 11:00 | Electrocardiogram Report ---
Test Reason : Blood Pressure : / mmHG Vent. Rate : 062 BPM Atrial Rate : 062 BPM P-R Int : 184 ms QRS Dur : 078 ms QT Int : 500 ms P-R-T Axes : 073 027 034 degrees QTc Int : 507 ms Normal sinus rhythm Prolonged QT Abnormal ECG When compared with ECG of 11-MAY-2022 01:59, Premature atrial complexes are no longer Present Confirmed by Jg Osman ([id number]) on 05/12/2022 10:59:31 AM Referred By: REFERRED SELF Confirmed By:Leon Osman
--- NOTE | 2022-05-12 12:00 | Pharmacy Report ---
Pharmacy Glycemic Short Note 2 - Date of Service May 12, 2022 - Glycemic Short BSG Results (Last 24 hours): 05/11/22 05/11/22 05/11/22 12:02 12:03 15:19 Glucose POC Glucose 347 H* 313 H* 188 H 05/11/22 05/12/22 05/12/22 20:16 07:32 07:49 Glucose 128 H POC Glucose 241 H 123 H 05/12/22 11:51 Glucose POC Glucose 207 H OUTPATIENT ANTIDIABETIC REGIMEN: * N/A HbA1c: 12.1% (05/12/22) ASSESSMENT: 05/12/22 * BSGs elevated yesterday, received 59 units of insulin (30 units of basal and 29 units of prandial/correctional bolus) * Fasting BSG significantly improved this morning at 123 mg/dL - will scale back on basal slightly given significant improvement and insulin naive patient * Remains on heparin gtt (containing dextrose) 05/11/22: * Ms Francis is an 86 y/o F who presents with weakness and atrial fibrillation. * Patient's BSG on admission was 403 mg/dL for which she received a 6 unit IV bolus. * BSG in the morning was 296 mg/dL. Noon BSG was 313 mg/dL. * Patient received 15 units of Lantus at 10 AM + Novolog 10 units as correction. * With lunch BSG of 313 mg/dL - tightened CF slightly and ordered 1500 check to ensure patient was trending down. CF on 1500 check looser to prevent overcorrection. Hesitant to give IV insulin due to K of 3.6 * Lantus scale for the evening based upon BSG. Re-evaluate Lantus in AM. * Currently Novolog tighter than weight-based stress of 3 which is appropriate in NPO setting. PLAN FOR INPATIENT GLYCEMIC CONTROL: * Basal insulin - decrease * Lantus 12 units SC BID * Bolus insulin * NovoLog per scale ACHS or Q6hrs while NPO * Goal Range: Low 120 mg/dL - High 150 mg/dL * Correction Factor: 25 mg/dL/unit * Nutritional / Prandial insulin per carb ratio of 1 unit per 8 grams CHO consumed
--- NOTE | 2022-05-12 12:49 | Cardiology Progress Note ---
Date of Service May 12, 2022 Assessment & Plan (1) Paroxysmal atrial fibrillation with rapid ventricular response: (2) Leukocytosis: (3) Weakness: (4) Left leg DVT: Plan: Spontaneous, August 2021 Plan Patient is an 86-year-old female who presented with acute weakness with atrial fibrillation with rapid response with spontaneous conversion to sinus rhythm following IV diltiazem. No prior history of cardiac disease or arrhythmias. She was treated for a spontaneous DVT in August 2021 with good tolerance of Eliquis. Troponins are significantly elevated question secondary to demand ischemia from rapid rate on presentation, underlying ischemic heart disease. EKGs do not reflect persistent ischemia though will check EKG in a.m and review echocardiogram Recent history of spontaneous DVT concerning anticoagulated appropriately currently with likely plans to transition to Eliquis if hemodynamic stability maintained over the next day Patient being treated for possible underlying infectious concerns given elevated white cell count acute weakness. Impression: Cardiac concerns as below 1. Atrial fibrillation, paroxysmal with rapid response no recurrence on telemetry. Will increase metoprolol succinate to 12.5 mg twice per day. Change anticoagulation from IV heparin to oral Eliquis at 5 mg twice per day 2. Elevated troponin EKG without ST segment or Q wave abnormalities on study today. Mild prolongation of the QT only. Echocardiogram with preserved LV systolic function and no wall motion abnormalities plan as above Patient with recent DVT but no evidence of pulmonary embolus historically. No hypoxia. Plan as above 3. 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 No arrhythmias overnight no chest pain, shortness of breath. No tachypalpitations or dizziness. Tolerating low-dose beta-connor Review of Systems Review of Systems: All systems reviewed & are unremarkable except as noted in Subjective Physical Exam Constitutional: + thin; no acute distress Eyes: PERRL, conjunctivae normal, anicteric sclerae ENMT: external ear and nose normal, oropharynx normal Neck: trachea midline, no thyromegaly Respiratory: normal respiratory effort, lungs clear to auscultation Cardiovascular: Rate/Rhythm: regular rate and regular rhythm Heart Sounds: normal S1, normal S2 and + murmur Vessels: normal carotid upstroke; no JVD Extremities: no edema Gastrointestinal (Abdomen): normal bowel sounds, soft, nontender, no hepatosplenomegaly Musculoskeletal: no cyanosis or clubbing, extremities motor strength 5/5 Neurologic: PERRL, EOMI, accommodation nl, no face palsy, no dysarthria Results & Data ([facility]) Vital Signs (Past 12 Hours) Vital Signs Temp Pulse Resp BP BP Pulse Ox O2 Del Method 05/12/22 12:27 36.8 C 81 18 133/77 95 Room Air 05/12/22 08:17 36.7 C 63 19 117/67 95 Room Air 05/12/22 08:16 Room Air 05/12/22 03:26 36.9 C 65 18 144/80 H 95 Room Air Laboratory Results Laboratory Results - last 24 hr 05/11/22 05/11/22 05/11/22 14:33 14:33 15:19 WBC RBC Hgb Hct MCV MCH MCHC RDW Std Deviation RDW Coeff of Shilpa Plt Count MPV Immature Gran % (Auto) Neut % (Auto) Lymph % (Auto) [place] % (Auto) Eos % (Auto) Baso % (Auto) Neut # (Auto) Lymph # (Auto) [place] # (Auto) Eos # (Auto) Baso # (Auto) Immature Gran # (Auto) APTT 30.9 PTT Ratio 1.1 Sodium Potassium Chloride Carbon Dioxide Anion Gap BUN Creatinine Est Cr Clr Drug Dosing Est GFR ( Amer) Est GFR (Non-Af Amer) BUN/Creatinine Ratio Glucose POC Glucose 188 H Estimat Average Glucose Hemoglobin A1c Calcium Phosphorus Magnesium Troponin I High Sens 1377.7 H* 05/11/22 05/11/22 05/11/22 20:16 21:24 21:24 WBC RBC Hgb Hct MCV MCH MCHC RDW Std Deviation RDW Coeff of Shilpa Plt Count MPV Immature Gran % (Auto) Neut % (Auto) Lymph % (Auto) [place] % (Auto) Eos % (Auto) Baso % (Auto) Neut # (Auto) Lymph # (Auto) [place] # (Auto) Eos # (Auto) Baso # (Auto) Immature Gran # (Auto) APTT 46.8 H* PTT Ratio 1.7 Sodium Potassium Chloride Carbon Dioxide Anion Gap BUN Creatinine Est Cr Clr Drug Dosing Est GFR ( Amer) Est GFR (Non-Af Amer) BUN/Creatinine Ratio Glucose POC Glucose 241 H Estimat Average Glucose Hemoglobin A1c Calcium Phosphorus Magnesium Troponin I High Sens 867.6 H* D 05/12/22 05/12/22 05/12/22 07:32 07:32 07:32 WBC 14.19 H RBC 4.10 Hgb 11.9 L Hct 34.9 MCV 85.1 MCH 29.0 MCHC 34.1 RDW Std Deviation 47.1 H RDW Coeff of Shilpa 15.2 H Plt Count 254 MPV 10.4 Immature Gran % (Auto) 0.5 Neut % (Auto) 71.7 Lymph % (Auto) 18.3 [place] % (Auto) 8.0 Eos % (Auto) 1.0 Baso % (Auto) 0.5 Neut # (Auto) 10.19 H Lymph # (Auto) 2.59 [place] # (Auto) 1.13 H Eos # (Auto) 0.14 Baso # (Auto) 0.07 Immature Gran # (Auto) 0.07 H APTT PTT Ratio Sodium 138 Potassium 3.3 L Chloride 109 H Carbon Dioxide 22 Anion Gap 7 BUN 17 Creatinine 0.69 D Est Cr Clr Drug Dosing 56.6 Est GFR ( Amer) 90.1 Est GFR (Non-Af Amer) 77.7 BUN/Creatinine Ratio 24.6 H Glucose 128 H POC Glucose Estimat Average Glucose 301 Hemoglobin A1c 12.1 H Calcium 7.9 L Phosphorus 2.2 L Magnesium 1.7 Troponin I High Sens 05/12/22 05/12/22 05/12/22 07:32 07:32 07:49 WBC RBC Hgb Hct MCV MCH MCHC RDW Std Deviation RDW Coeff of Shilpa Plt Count MPV Immature Gran % (Auto) Neut % (Auto) Lymph % (Auto) [place] % (Auto) Eos % (Auto) Baso % (Auto) Neut # (Auto) Lymph # (Auto) [place] # (Auto) Eos # (Auto) Baso # (Auto) Immature Gran # (Auto) APTT 43.3 H PTT Ratio 1.6 Sodium Potassium Chloride Carbon Dioxide Anion Gap BUN Creatinine Est Cr Clr Drug Dosing Est GFR ( Amer) Est GFR (Non-Af Amer) BUN/Creatinine Ratio Glucose POC Glucose 123 H Estimat Average Glucose Hemoglobin A1c Calcium Phosphorus Cancelled Magnesium Troponin I High Sens 05/12/22 11:51 WBC RBC Hgb Hct MCV MCH MCHC RDW Std Deviation RDW Coeff of Shilpa Plt Count MPV Immature Gran % (Auto) Neut % (Auto) Lymph % (Auto) [place] % (Auto) Eos % (Auto) Baso % (Auto) Neut # (Auto) Lymph # (Auto) [place] # (Auto) Eos # (Auto) Baso # (Auto) Immature Gran # (Auto) APTT PTT Ratio Sodium Potassium Chloride Carbon Dioxide Anion Gap BUN Creatinine Est Cr Clr Drug Dosing Est GFR ( Amer) Est GFR (Non-Af Amer) BUN/Creatinine Ratio Glucose POC Glucose 207 H Estimat Average Glucose Hemoglobin A1c Calcium Phosphorus Magnesium Troponin I High Sens Diagnostic Findings Echocardiogram 05/11/2022: Personally reviewed Normal left ventricular size and function with moderate left ventricular hype rtrophy, EF 60-65% without wall motion abnormality Calcific changes of aortic and mitral valve without stenosis or significant insufficiency No evidence of pulmonary hypertension
[2022-05-12] MEDS: LANTUS PER UNIT CHARGE SQ SCH ×2 (13:05→20:32)
[2022-05-12] MEDS: APIXABAN 5 MG TABLET PO SCH ×2 (13:07→20:29)
[2022-05-12] MEDS ORDERED: FUROSEMIDE INJ 20 MG/2 ML VIAL IV ONE (13:47)
--- NOTE | 2022-05-12 14:13 | XRay Report ---
XR chest 1V portable HISTORY: 86 years-old Female shortness of breath acute shortness of breath COMPARISON: Chest radiograph 05/11/2022 TECHNIQUE: AP view of the chest FINDINGS: Cardiomediastinal and hilar silhouettes are within normal limits. Atherosclerosis of the aorta. Moder ate sized hiatal hernia. No pneumothorax, pleural effusion, airspace consolidation or overt pulmonary edema. Healed chronic right-sided rib fractures. Degenerative changes of the shoulders and spine. IMPRESSION: 1. No acute process of the chest. 2. Moderate sized hiatal hernia. ACT 112: Negative or not required by law. The above report was generated using voice recognition software. It may contain grammatical, syntax o r spelling errors. Electronically signed by: Amilcar Morris M.D. 05/12/2022 2:11 PM
[2022-05-12] MEDS: ACETAMINOPHEN 325 MG TAB PO PRN (15:16)
[2022-05-12] MEDS: LORazepam 0.5 MG TAB PO PRN (20:32)
[2022-05-12] MEDS: CEFEPIME 2,000 MG in SYRINGE 0 ML IV SCH (20:34)
[2022-05-12] MEDS: Heparin IV Adult Wt-Based Low-Dose *NO* Bolus Protocol IV SCH ×3 (21:05→22:43)
[2022-05-12] MEDS: dilTIAZem HCL 125 MG in DEXTROSE 5% 100 ML IV SCH (21:05)
[2022-05-12] MEDS: HEPARIN SODIUM/DEXTROSE 25,000 UNITS/500 ML BAG IV SCH (21:05)
[2022-05-13 06:30] LABS: Hematocrit (blood only) 36.3 % (34.1-44.9); Hemoglobin 12.3 g/dl (12.0-16.0); Mean Corpuscular Hemoglobin 28.7 pg (25.0-34.0); Mean Corpuscular Hgb Conc 33.9 g/dL (32.0-36.0); Mean Corpuscular Volume 84.6 fL (80.0-100.0); Mean Platelet Volume 10.4 fL (9.4-12.3); Platelet Count 300 K/uL (130-400); RDW Coefficient of Variation 15.1 % (11.5-14.5); RDW Standard Deviation 46.5 fL (36.4-46.3); Red Blood Count 4.29 M/uL (3.93-5.22); White Blood Count 9.76 K/ul (4.8-10.8)
[2022-05-13 06:53] LABS: BUN Creatinine Ratio 19.7 (10-20); Calcium 8.6 mg/dl (8.5-10.1); Creatinine Clr Calc Pharmacy 51.3 ml/min; Est GFR (African American) 81.2 ml/min; Magnesium 1.8 mg/dl (1.7-2.4); Phosphorus 2.1 mg/dl (2.5-4.9); Potassium 3.6 mmol/L (3.5-5.1)
[2022-05-13] MEDS: ACETAMINOPHEN 325 MG TAB PO PRN (07:27)
[2022-05-13] MEDS ORDERED: POTASSIUM CHLORIDE CRTAB 20 MEQ TABCR PO STA (08:30)
--- NOTE | 2022-05-13 08:33 | Hospitalist Progress Note ---
Date of Service May 13, 2022 Assessment & Plan (1) Paroxysmal atrial fibrillation with rapid ventricular response: (2) Acute hyperglycemia: (3) Acute UTI (urinary tract infection): (4) Leukocytosis: Plan: 86 yo F who presents for weakness and found to have rapid atrial fibrillation, probably mild diabetic ketoacidosis and sepsis with urinary tract infection. 1. Rapid atrial fibrillation: ER started on Cardizem drip, which is now stopped. Started on low-dose IV heparin. Now switched to Eliquis. Cardiac enzymes elevated. Peak at 1000, now trended down. secondary to demand ischemia from rapid rate on presentation, underlying ischemic heart disease. Echo obtained - LV is normal in size. Moderate concentric LVH. LV wall motion is normal. EF 60 to 65%. Dysfunction, grade 2. Aortic valve leaflets are mild to moderately calcified with mild restriction of leaflet mobility with mildly elevated outflow velocity. No hemodynamically significant valvular aortic stenosis. Trace aortic regurg. There is moderate to severe mitral valve annular calcification and mild restriction and thickening of the mitral valve leaflets. No significant mitral valve stenosis. There is trace mitral regurg. There is mild tricuspid regurg. Cardiology consulted - started on beta-connor, metoprolol succinate 12.5 mg BID. Stopped IV heparin - transitioned to Eliquis. 2. Sepsis - with elevated white count, urinary tract infection and elevated lactic acid 2.9: Started on fluids and cefepime. Ucultx c/w UTI, + group B strep WBC now normalized 3. Elevated blood sugars possible mild diabetic ketoacidosis: Received IV insulin and fluids on admission. Current A1c 12.1% Lantus and ISS. Glycemic pharmacy consulted. Continue to closely monitor. 4. Depression and anxiety: On Ativan p.r.n. 6. Hypertension: Not on any medications. We will monitor the blood pressure. 7. History of aortic aneurysm without rupture: Follow echocardiogram, as above. 8. History of chronic obstructive pulmonary disease and asthma as per records: Not on any inhalers.Will monitor. 9. Weakness Mostly from above. PT/OT DVT prophylaxis: Eliquis DISPOSITION: tele floor. CODE: full code as per discussion with the daughter. Admission and Anticipated Discharge Date Admission Date: May 11, 2022 Subjective Pt seen in follow up of afib w/ rvr, weakness, elev. WBC /likely UTI Currently sitting up in bed, eating breakfast, no distress Denies any fevers chills, chest pain or shortness of breath, palpitations abdominal pain, dysuria WBC improved - down to 9.8K HR controlled as well HbA1c 12.1% Review of Systems Review of Systems: All systems reviewed & are unremarkable except as noted in Subjective Physical Exam Physical Exam: GENERAL: elderly frail F, not in acute distress. HEENT:NC/AT. EOMI. Pupils equal, round and reactive to light. Oral mucosa dry. NECK: No JVD or neck masses. CARDIOVASCULAR: S1 and S2 heard. RRR. No murmur, no gallop. RESPIRATORY: Normal AP diameter. No accessory muscle use. No wheezing, no crackles. ABDOMEN: Soft, bowel sounds present, nontender, no distention. NEURO: Alert and oriented. Speech is clear. No facial droop. Insight is okay. Obeys simple commands. Moves extremities. EXTREMITIES: No edema, no erythema. Results & Data Results & Data ([facility]) Vital Signs (Past 12 Hours) Vital Signs Temp Pulse Resp BP BP Pulse Ox O2 Del Method 05/13/22 03:45 36.8 C 68 20 152/78 H 94 Room Air 05/12/22 23:13 36.6 C 67 16 148/81 H 93 Room Air Laboratory Results 05/13/22 05/13/22 05/13/22 Range/Units 17:07 12:14 08:14 WBC (4.8-10.8) K/ul RBC (3.93-5.22) M/uL Hgb (12.0-16.0) g/dl Hct (34.1-44.9) % MCV (80.0-100.0) fL MCH (25.0-34.0) pg MCHC (32.0-36.0) g/dL RDW Std Deviation (36.4-46.3) fL RDW Coeff of Shilpa (11.5-14.5) % Plt Count (130-400) K/uL MPV (9.4-12.3) fL Sodium (136-145) mmol/L Potassium (3.5-5.1) mmol/L Chloride (98-107) mmol/L Carbon Dioxide (21-32) mmol/L Anion Gap (3-11) BUN (6-23) mg/dl Creatinine (0.6-1.2) mg/dl Est Cr Clr Drug Dosing ml/min Est GFR ( Amer) ml/min Est GFR (Non-Af Amer) ml/min BUN/Creatinine Ratio (10-20) Glucose (70-99(Fasting)) mg/dl POC Glucose 101 H 152 H 121 H (70-99) mg/dl Calcium (8.5-10.1) mg/dl Phosphorus (2.5-4.9) mg/dl Magnesium (1.7-2.4) mg/dl 05/13/22 05/13/22 05/12/22 Range/Units 06:00 06:00 20:20 WBC 9.76 (4.8-10.8) K/ul RBC 4.29 (3.93-5.22) M/uL Hgb 12.3 (12.0-16.0) g/dl Hct 36.3 (34.1-44.9) % MCV 84.6 (80.0-100.0) fL MCH 28.7 (25.0-34.0) pg MCHC 33.9 (32.0-36.0) g/dL RDW Std Deviation 46.5 H (36.4-46.3) fL RDW Coeff of Shilpa 15.1 H (11.5-14.5) % Plt Count 300 (130-400) K/uL MPV 10.4 (9.4-12.3) fL Sodium 140 (136-145) mmol/L Potassium 3.6 (3.5-5.1) mmol/L Chloride 110 H (98-107) mmol/L Carbon Dioxide 24 (21-32) mmol/L Anion Gap 6 (3-11) BUN 15 (6-23) mg/dl Creatinine 0.76 (0.6-1.2) mg/dl Est Cr Clr Drug Dosing 51.3 ml/min Est GFR ( Amer) 81.2 ml/min Est GFR (Non-Af Amer) 70.0 ml/min BUN/Creatinine Ratio 19.7 (10-20) Glucose 93 (70-99(Fasting)) mg/dl POC Glucose 124 H (70-99) mg/dl Calcium 8.6 (8.5-10.1) mg/dl Phosphorus 2.1 L (2.5-4.9) mg/dl Magnesium 1.8 (1.7-2.4) mg/dl Medications Administered Current Inpatient Medications Acetaminophen (Acetaminophen 325 Mg Tab) 650 mg PO Q4H PRN PRN Reason: Pain or Fever Stop: 06/10/22 06:42 Last Admin: 05/13/22 07:27 Dose: 650 mg Apixaban (Apixaban 5 Mg Tablet) 5 mg PO BID [facility] Stop: 06/11/22 12:59 Last Admin: 05/13/22 09:03 Dose: 5 mg Cefepime HCl 2,000 mg/ Syringe 20 mls @ 5 mls/min IV DAILY@2200 [facility]; Protocol Stop: 05/21/22 21:59 Last Admin: 05/12/22 20:34 Dose: 5 mls/min Insulin Aspart (Insulin Aspart Per Unit) 0 units SC ACHS [facility] Stop: 06/10/22 20:59 Last Admin: 05/13/22 17:36 Dose: 3 units Insulin Glargine (Lantus Per Unit Charge) 10 units SQ BID [facility] Stop: 06/11/22 11:59 Last Admin: 05/13/22 09:02 Dose: 10 units Lorazepam (Lorazepam 0.5 Mg Tab) 0.5 mg PO TID PRN PRN Reason: Anxiety Stop: 06/10/22 06:42 Last Admin: 05/13/22 14:48 Dose: 0.5 mg Magnesium Oxide (Magnesium Oxide 400 Mg Tab) 400 mg PO QAM [facility] Stop: 06/11/22 09:29 Last Admin: 05/13/22 09:02 Dose: 400 mg Metoprolol Succinate (Metoprolol Succ 25mg Ext Rel Tab) 12.5 mg PO BID [facility] Stop: 06/11/22 20:59 Last Admin: 05/13/22 09:02 Dose: 12.5 mg Miscellaneous (Preparation H ~ Order Awaiting Action) 1 each N/A QS [facility] Stop: 06/10/22 07:59 Last Admin: 05/13/22 16:42 Dose: Not Given Miscellaneous Information (Pharmacy Glycemic Mgmt Consult) 1 each N/A UD PRN; Protocol PRN Reason: Consult Stop: 06/10/22 08:02 Nitroglycerin (Nitroglycerin Sl 0.4 Mg/Tab Tab) 0.4 mg SL UD PRN PRN Reason: Chest Pain Stop: 06/10/22 06:42 Polyethylene Glycol (Polyethylene (Miralax) 17 Gm Pack) 17 gm PO DAILY PRN PRN Reason: Constipation Stop: 06/10/22 06:42 Potassium Chloride (Potassium Chloride 10 Meq Tabcr) 10 meq PO DAILY QI Stop: 06/12/22 15:59 Last Admin: 05/13/22 17:31 Dose: 10 meq
[2022-05-13] MEDS: INSULIN ASPART PER UNIT SC SCH ×4 (09:01→20:31)
[2022-05-13] MEDS: METOPROLOL SUCC 25MG EXT REL TAB PO SCH ×2 (09:02→20:11)
[2022-05-13] MEDS: MAGNESIUM OXIDE 400 MG TAB PO SCH (09:02)
[2022-05-13] MEDS: LANTUS PER UNIT CHARGE SQ SCH ×2 (09:02→20:31)
[2022-05-13] MEDS: APIXABAN 5 MG TABLET PO SCH ×2 (09:03→20:11)
--- NOTE | 2022-05-13 11:16 | Electrocardiogram Report ---
Test Reason : Blood Pressure : / mmHG Vent. Rate : 064 BPM Atrial Rate : 064 BPM P-R Int : 180 ms QRS Dur : 080 ms QT Int : 458 ms P-R-T Axes : 053 008 017 degrees QTc Int : 472 ms Normal sinus rhythm When compared with ECG of 12-MAY-2022 05:37, No significant change was found Confirmed by Jg Osman [id number] on 05/13/2022 11:16:01 AM Referred By: REFERRED SELF Confirmed By:Leon Osman
[2022-05-13] MEDS: LORazepam 0.5 MG TAB PO PRN ×2 (14:48→22:06)
--- NOTE | 2022-05-13 15:35 | Cardiology Progress Note ---
Date of Service May 13, 2022 Assessment & Plan (1) Paroxysmal atrial fibrillation with rapid ventricular response: (2) Leukocytosis: (3) Weakness: (4) Left leg DVT: Plan: Spontaneous, August 2021 (5) DMII (diabetes mellitus, type 2): Plan Patient is an 86-year-old female who presented with acute weakness with atrial fibrillation with rapid response with spontaneous conversion to sinus rhythm following IV diltiazem. No prior history of cardiac disease or arrhythmias. She was treated for a spontaneous DVT in August 2021 with good tolerance of Eliquis. Troponins are significantly elevated question secondary to demand ischemia from rapid rate on presentation, underlying ischemic heart disease. EKGs do not reflect persistent ischemia though will check EKG in a.m and review echocardiogram Recent history of spontaneous DVT concerning anticoagulated appropriately currently with likely plans to transition to Eliquis if hemodynamic stability maintained over the next day Patient being treated for possible underlying infectious concerns given elevated white cell count acute weakness. Impression: Cardiac concerns as below 1. Atrial fibrillation, paroxysmal with rapid response no recurrence on te lemetry. Will increase metoprolol succinate to 12.5 mg twice per day. Continue oral Eliquis at 5 mg twice per day 2. Elevated troponin EKG without ST segment or Q wave abnormalities on study today. Mild prolongation of the QT only. Echocardiogram with preserved LV systolic function and no wall motion abnormalities plan as above Patient with recent DVT but no evidence of pulmonary embolus historically. No hypoxia. EKG 05/13/2022 normal sinus rhythm with normal trace 3. 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 Mild hypokalemia we will add supplement Admission and Anticipated Discharge Date Admission Date: May 11, 2022 Subjective Patient seen and examined, chart, medications, telemetry reviewed. Patient bright eating lunch without complaint. No further arrhythmias. No chest pains no shortness of breath no dizziness or lightheadedness. No bleeding difficulties on anticoagulation Review of Systems Review of Systems: All systems reviewed & are unremarkable except as noted in Subjective Physical Exam Constitutional: + thin; no acute distress Eyes: PERRL, conjunctivae normal, anicteric sclerae ENMT: external ear and nose normal, oropharynx normal Neck: trachea midline, no thyromegaly Respiratory: normal respiratory effort, lungs clear to auscultation Cardiovascular: Rate/Rhythm: regular rate and regular rhythm Heart Sounds: normal S1, normal S2 and + murmur Vessels: normal carotid upstroke; no JVD Extremities: no edema Gastrointestinal (Abdomen): normal bowel sounds, soft, nontender, no hepatosplenomegaly Musculoskeletal: no cyanosis or clubbing, extremities motor strength 5/5 Neurologic: PERRL, EOMI, accommodation nl, no face palsy, no dysarthria Results & Data ([facility]) Vital Signs (Past 12 Hours) Vital Signs Temp Pulse Resp BP Pulse Ox O2 Del Method 05/13/22 11:25 36.9 C 64 18 146/80 H 96 Room Air 05/13/22 08:59 36.6 C 77 18 146/69 H 96 05/13/22 03:45 36.8 C 68 20 152/78 H 94 Room Air Laboratory Results Laboratory Results - last 24 hr 05/12/22 05/12/22 05/13/22 16:55 20:20 06:00 WBC 9.76 RBC 4.29 Hgb 12.3 Hct 36.3 MCV 84.6 MCH 28.7 MCHC 33.9 RDW Std Deviation 46.5 H RDW Coeff of Shilpa 15.1 H Plt Count 300 MPV 10.4 Sodium Potassium Chloride Carbon Dioxide Anion Gap BUN Creatinine Est Cr Clr Drug Dosing Est GFR ( Amer) Est GFR (Non-Af Amer) BUN/Creatinine Ratio Glucose POC Glucose 102 H 124 H Calcium Phosphorus Magnesium 05/13/22 05/13/22 05/13/22 06:00 08:14 12:14 WBC RBC Hgb Hct MCV MCH MCHC RDW Std Deviation RDW Coeff of Shilpa Plt Count MPV Sodium 140 Potassium 3.6 Chloride 110 H Carbon Dioxide 24 Anion Gap 6 BUN 15 Creatinine 0.76 Est Cr Clr Drug Dosing 51.3 Est GFR ( Amer) 81.2 Est GFR (Non-Af Amer) 70.0 BUN/Creatinine Ratio 19.7 Glucose 93 POC Glucose 121 H 152 H Calcium 8.6 Phosphorus 2.1 L Magnesium 1.8
[2022-05-13] MEDS: POTASSIUM CHLORIDE 10 MEQ TABCR PO SCH (17:31)
[2022-05-13] MEDS: CEFEPIME 2,000 MG in SYRINGE 0 ML IV SCH (22:06)
[2022-05-14] MEDS: APIXABAN 5 MG TABLET PO SCH (08:18)
[2022-05-14] MEDS: METOPROLOL SUCC 25MG EXT REL TAB PO SCH (08:18)
[2022-05-14] MEDS: POTASSIUM CHLORIDE 10 MEQ TABCR PO SCH (08:18)
[2022-05-14] MEDS: MAGNESIUM OXIDE 400 MG TAB PO SCH (08:19)
[2022-05-14] MEDS: INSULIN ASPART PER UNIT SC SCH ×3 (08:28→17:35)
[2022-05-14] MEDS ORDERED: LANTUS PER UNIT CHARGE SQ SCH (09:00)
--- NOTE | 2022-05-14 09:56 | Pharmacy Report ---
Pharmacy Glycemic Short Note 2 - Date of Service May 14, 2022 - Glycemic Short BSG Results (Last 24 hours): 05/13/22 05/13/22 05/13/22 12:14 17:07 20:11 POC Glucose 152 H 101 H 175 H 05/14/22 08:14 POC Glucose 97 OUTPATIENT ANTIDIABETIC REGIMEN: * N/A HbA1c: 12.1% (05/12/22) ASSESSMENT: 05/14/22 * BSGs reasonably well-controlled yesterday, ranging 101-175 mg/dL * Received 37 units of insulin (20 units of basal and 17 units of bolus) * Fasting BSG of 97 mg/dL, given age will prioritize limiting hypoglycemia and reduce basal ~20% today 05/12/22 * BSGs elevated yesterday, received 59 units of insulin (30 units of basal and 29 units of prandial/correctional bolus) * Fasting BSG significantly improved this morning at 123 mg/dL - will scale back on basal slightly given significant improvement and insulin naive patient * Remains on heparin gtt (containing dextrose) 05/11/22: * Ms Francis is an 86 y/o F who presents with weakness and atrial fibrillation. * Patient's BSG on admission was 403 mg/dL for which she received a 6 unit IV bolus. * BSG in the morning was 296 mg/dL. Noon BSG was 313 mg/dL. * Patient received 15 units of Lantus at 10 AM + Novolog 10 units as correction. * With lunch BSG of 313 mg/dL - tightened CF slightly and ordered 1500 check to ensure patient was trending down. CF on 1500 check looser to prevent overcorrection. Hesitant to give IV insulin due to K of 3.6 * Lantus scale for the evening based upon BSG. Re-evaluate Lantus in AM. * Currently Novolog tighter than weight-based stress of 3 which is appropriate in NPO setting. PLAN FOR INPATIENT GLYCEMIC CONTROL: * Basal insulin - decrease * Lantus 8 units SC BID * Bolus insulin * NovoLog per scale ACHS or Q6hrs while NPO * Goal Range: Low 120 mg/dL - High 150 mg/dL * Correction Factor: 25 mg/dL/unit * Nutritional / Prandial insulin per carb ratio of 1 unit per 8 grams CHO consumed
[2022-05-14] MEDS: cephALEXin 500 MG CAP PO SCH ×2 (12:37→18:05)
--- NOTE | 2022-05-14 13:40 | Cardiology Progress Note ---
Date of Service May 14, 2022 Assessment & Plan (1) Paroxysmal atrial fibrillation with rapid ventricular response: (2) Leukocytosis: (3) Weakness: (4) Left leg DVT: Plan: Spontaneous, August 2021 (5) DMII (diabetes mellitus, type 2): Plan Patient is an 86-year-old female who presented with acute weakness with atrial fibrillation with rapid response with spontaneous conversion to sinus rhythm following IV diltiazem. No prior history of cardiac disease or arrhythmias. She was treated for a spontaneous DVT in August 2021 with good tolerance of Eliquis. Troponins are significantly elevated question secondary to demand ischemia from rapid rate on presentation, underlying ischemic heart disease. EKGs do not reflect persistent ischemia though will check EKG in a.m and review echocardiogram Recent history of spontaneous DVT concerning anticoagulated appropriately currently with likely plans to transition to Eliquis if hemodynamic stability maintained over the next day Patient being treated for possible underlying infectious concerns given elevated white cell count acute weakness. Impression: Cardiac concerns as below 1. Atrial fibrillation, paroxysmal with rapid response without significant ecurrence on telemetry. Will continue metoprolol succinate to 12.5 mg twice per day. Continue oral Eliquis at 5 mg twice per day 2. Elevated troponin EKG without ST segment or Q wave abnormalities on study today. Mild prolongation of the QT only. Echocardiogram with preserved LV systolic function and no wall motion abnormalities plan as above Patient with recent DVT but no evidence of pulmonary embolus historically. No hypoxia. EKG 05/13/2022 normal sinus rhythm with normal trace 3. 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 Mild hypokalemia we will add supplement for discharge at potassium 10 mg p.o. daily No further cardiac recommendations Follow-up cardiology 2 to 4-week Admission and Anticipated Discharge Date Admission Date: May 11, 2022 Subjective Patient was seen and examined, chart, medications, telemetry reviewed. Patient without complaint. Anxious to be discharged. Telemetry revealed 1 brief run of atrial tachycardia 9 beats in duration last night no further arrhythmias. No pauses. Tolerating medications well. Patient anticoagulated without bleeding complication. Review of Systems Review of Systems: All systems reviewed & are unremarkable except as noted in Subjective Physical Exam Constitutional: no acute distress Eyes: PERRL, conjunctivae normal, anicteric sclerae ENMT: external ear and nose normal, oropharynx normal Neck: trachea midline, no thyromegaly Respiratory: normal respiratory effort, lungs clear to auscultation Cardiovascular: Rate/Rhythm: regular rate and regular rhythm Heart Sounds: normal S1, normal S2 and + murmur Vessels: normal carotid upstroke; no JVD Extremities: no edema Gastrointestinal (Abdomen): normal bowel sounds, soft, nontender, no hepatosplenomegaly Musculoskeletal: no cyanosis or clubbing, extremities motor strength 5/5 Neurologic: PERRL, EOMI, accommodation nl, no face palsy, no dysarthria Results & Data ([facility]) Vital Signs (Past 12 Hours) Vital Signs Temp Pulse Resp BP BP Pulse Ox O2 Del Method 05/14/22 11:36 36.9 C 89 18 137/73 94 Room Air 05/14/22 07:52 37.1 C 72 18 154/79 H 94 Room Air
--- NOTE | 2022-05-14 19:19 | Discharge Summary ---
Discharge Summary Date of Service May 14, 2022 Notes For Next Care Provider 1. New diagnosis of paroxysmal atrial fibrillation. Close follow-up with cardiology recommended. Continues on Eliquis and Toprol-XL. 2. New onset diabetes with an A1c 12.1. Started on metformin twice daily, however, insulin was recommended. Patient not confident she can handle this. Needs close MTM follow-up with quick titration of meds as needed. Patient requires annual foot and eye screening. 3. Repeat BMP and mag level to be considered with electrolyte supplementation required at discharge. Medication Changes From Visit NEW MEDS AT DISCHARGE: Cephalexin 500 mg p.o. 4 times daily x10 days Eliquis 5 mg p.o. twice daily Magnesium oxide 400 mg p.o. every morning Metformin 500 mg p.o. twice daily with meals Metoprolol succinate 12.5 mg p.o. twice daily Potassium chloride 10 mill equivalents p.o. daily Admission HPI Per Admitting Provider HISTORY OF PRESENT ILLNESS: This 86-year-old female with past medical history significant for type 2 diabetes, currently not on any medications, history of COPD, asthma, not on any medications, history of aortic aneurysm without rupture, history of hypertension, currently not on any medications, GERD, history of depression, generalized anxiety disorder, on Ativan p.r.n., history of DVT, was on Eliquis, currently, it is stopped, who lives alone at home, ambulates with a cane, presents with weakness. Daughter calls her every night. She called around 6:00 p.m. when the patient was taking Tylenol, which she usually takes in the evening, then she called again at 9pm, but the patient was not answering the call. She called several times, she was not answering, then she went to patient's home and found her on the commode, alert and oriented, but not able to get up from the commode, feeling weak when EMS was called and she was brought in here. When she came in, she was in rapid AFib, heart rate in the 180s and she was started on Cardizem drip, currently better controlled. She was also found to have sugars in 400s and also sepsis with white count in 30's and lactate of 2.9. Urinalysis positive.. The patient's daughter is in the room. The patient is somewhat hard of hearing. The patient is also answering appropriately, but daughter is helping with H and P. The patient denies any headache. No blurred vision. Somewhat hard of hearing, no runny nose. Has some mild sore throat, occasional cough, no difficulty swallowing. She is eating and drinking okay. Denies any chest pain, no palpitations, no shortness of breath, no nausea, no abdominal pain. Normal bowel and bladder movements. She micturates a lot, but that is nothing unusual for her. No swelling in the legs, no rash. Hemodynamics are stable currently. Admission Exam Per Admitting Provider PHYSICAL EXAMINATION: GENERAL: The patient is old and frail, not in acute distress. VITAL SIGNS: Temperature 37, pulse 81, respiratory rate 23, blood pressure 110/71, oxygen 96% on room air. HEENT: Pupils equal, round and reactive to light. Oral mucosa dry. NECK: No JVD or neck masses. CARDIOVASCULAR: S1 and S2 heard. Irregular rhythm. No murmur, no gallop. RESPIRATORY SYSTEM: Normal AP diameter. No accessory muscle use. No wheezing, no crackles. ABDOMEN: Soft, bowel sounds present, nontender, no distention. CENTRAL NERVOUS SYSTEM: Alert and oriented. Speech is clear. No facial droop. Insight is okay. Obeys simple commands. Moves extremities. EXTREMITIES: No edema, no erythema. Principal Dx & Hospital Course #1 = Principal Diagnosis (1) Paroxysmal atrial fibrillation with rapid ventricular response: (2) Acute hyperglycemia: (3) Acute UTI (urinary tract infection): (4) Leukocytosis: (5) DMII (diabetes mellitus, type 2): (6) Left leg DVT: Plan The patient is an 86-year-old diabetic female who presented with weakness. She was found on the commode unable to get up and was brought in by EMS. Upon arrival she was found to be in rapid atrial fibrillation with a heart rate in the 180s and she was started on a Cardizem drip. Blood sugar was in the 400s and there was a concern of sepsis with a white count in the 30s and a lactate of 2.9. Urinalysis reflected a urinary tract infection. She was started on low- dose IV heparin for stroke prevention and atrial fibrillation and admitted to medicine. An echocardiogram was ordered and cardiology consult was requested. For presumed sepsis she was started on IV fluids and cefepime. There was a question of mild diabetic ketoacidosis and she was given intravenous insulin and fluids with subsequent basal bolus subcutaneous insulin. Elevated troponin was felt secondary to demand ischemia from rapid rate on presentation. A low-dose beta-connor was added, metoprolol succinate 12.5 mg. She was transition from IV heparin to Eliquis. An echocardiogram revealed an ejection fraction of 60-65 with grade 2 diastolic dysfunction. The aortic valve leaflets were moderately calcified with mild restriction. There was no hemodynamically significant aortic valve stenosis. Urine culture grew out group B beta strep and she was transitioned to cephalexin at discharge. With new onset diabetes and a hemoglobin A1c of 12.1, insulin was recommended. However in speaking with Ms. Francis who lives alone, insulin injections along with blood sugar checks would be too difficult for her to manage at this time. Therefore she was started on metformin 500 mg twice daily with meals. Close MTM follow-up with glycemic pharmacist as outpatient was recommended. Risks and side effects of metformin were explained to the patient and the daughter at discharge, as well as the initial recommendation of insulin and likely need to titrate metformin moving forward. Patient was also given magnesium and potassium supplementation and discharged with follow-up BMP recommended by primary care doctor. For heart rate control she was sent home on Toprol XL 12.5 mg p.o. twice daily. Again she was discharged with apixaban for stroke prophylaxis in paroxysmal atrial fibrillation. She had spontaneously converted and was stable and in sinus rhythm when she was discharged. Close primary care follow-up was recommended. Of note, on day of discharge the patient initially was having difficulty speaking and appearing to slur her words. She appeared very confused and at times did not know where she was. Later her daughter came in and we discussed the way Ms. Francis looked. At that time she had no issues speaking or moving her arms or legs or following instructions. Ms. Francis granddaughter was present for the initial visit and both daughter and granddaughter felt there might be a component of significant anxiety causing initial symptoms. Ms. Francis daughter felt comfortable taking her home with the way she looked and was able to keep an eye on her for the next few days. All instructions were reviewed with Ms. Francis daughter. She verbalized understanding with intent to comply. Updated Medication List Medication Instructions Recorded Confirmed Type acetaminophen 325 mg tablet 650 mg PO QID PRN Pain 02/22/21 05/11/22 History (Tylenol) lorazepam 0.5 mg tablet 0.5 mg PO TID PRN Anxiety 02/22/21 05/11/22 History phenylephrine 0.25 %-mineral oil 1 applic [place] BID PRN hemorrhoids 02/22/21 05/11/22 Rx 14 %-petrolatm 74.9 % rectal #28 grams ointment (Preparation H) apixaban 5 mg tablet (Eliquis) 5 mg PO BID #60 tabs 05/14/22 Rx blood sugar diagnostic (OneTouch #50 ea 05/14/22 Rx Verio test strips) cephalexin 500 mg capsule 500 mg PO QID #20 caps 05/14/22 Rx lancets 33 gauge (OneTouch Delica #100 ea 05/14/22 Rx Plus Lancet) magnesium oxide 400 mg (241.3 mg 400 mg PO QAM #30 tabs 05/14/22 Rx magnesium) tablet metformin 500 mg tablet 500 mg PO BIDWMEAL #60 tabs 05/14/22 Rx metoprolol succinate 25 mg 12.5 mg PO BID #30 tabs 05/14/22 Rx tablet,extended release 24 hr potassium chloride 10 mEq 10 meq PO DAILY #30 tabs 05/14/22 Rx tablet,extended release(part/cryst) Hospital Stay Data Consultations 05/11/22 03:37 ED Decision to Admit Stat 05/11/22 08:00 Consult Cardiology Routine Pending Results Patient Have Any Pending Studies at Discharge: No Discharge Instructions Given to Patient (Per Discharging Provider) Please take all medications as instructed on discharge list below. You have been placed on a blood thinner called apixaban, that you should continue indefinitely. Please obtain refills from your primary care physician on follow-up. You have been placed on a magnesium and potassium supplement. Repeat bloodwork (BMP + Mg) should be drawn in 1-2 weeks to monitor these levels. You have been given a short course of antibiotics to finish up the treatment of your urinary tract infection. No driving until follow-up with primary care physician. You have been started on a diabetic medication called Metformin, which should be taken with meals. At your level of hemoglobin A1C (HbA1C), you should be on insulin. This may be considered on follow-up with your primary care provider. For now, please start the metformin, and when you check your blood sugar, please keep a record and bring this to every medical appointment. You have been scheduled for a follow-up with your primary care provider to assist with the above issues and ensure these are followed with updated therapy plans as needed. It was a pleasure taking care of you! Please call if you have any questions or problems. You can reach a [facility] hospitalist on duty at [facility] 24 hours a day by calling [phone]. Take care of yourself. Adriana Cunningham, [place] [facility] Total Time Total Time Spent Total Time Spent (In Minutes): 60
--- NOTE | 2022-05-23 11:54 | Coding Query ---
CODING QUERY To promote full compliance with coding requirements relating to patient care, provider participation is requested in all cases of claim attorney uncertainty. Please assist us with the question(s) below: Coding Question(s): The ER documents, "Patient will be admitted for new onset rapid A. fib SVT, sepsis", and upon Discharge Summary there is documentation of, " Principal Dx & Hospital Course #1 = Principal Diagnosis (1) Paroxysmal atrial fibrillation with rapid ventricular response: (2) Acute hyperglycemia: (3) Acute UTI (urinary tract infection): (4) Leukocytosis: (5) DMII (diabetes mellitus, type 2): (6) Left leg DVT: ", and, "The patient is an 86-year-old diabetic female who presented with weakness. She was found on the commode unable to get up and was brought in by EMS. Upon arrival she was found to be in rapid atrial fibrillation with a heart rate in the 180s and she was started on a Cardizem drip. Blood sugar was in the 400s and there was a concern of sepsis with a white count in the 30s and a lactate of 2.9. Urinalysis reflected a urinary tract infection. She was started on low- dose IV heparin for stroke prevention and atrial fibrillation and admitted to medicine. An echocardiogram was ordered and cardiology consult was requested. For presumed sepsis she was started on IV fluids and cefepime. There was a question of mild diabetic ketoacidosis and she was given intravenous insulin and fluids with subsequent basal bolus subcutaneous insulin. Elevated troponin was felt secondary to demand ischemia from rapid rate on presentation. A low-dose beta-connor was added, metoprolol succinate 12.5 mg. She was transition from IV heparin to Eliquis. An echocardiogram revealed an ejection fraction of 60-65 with grade 2 diastolic dysfunction. The aortic valve leaflets were moderately calcified with mild restriction. There was no hemodynamically significant aortic valve stenosis. Urine culture grew out group B beta strep and she was transitioned to cephalexin at discharge. With new onset diabetes and a hemoglobin A1c of 12.1, insulin was recommended. However in speaking with Ms. Francis who lives alone, insulin injections along with blood sugar checks would be too difficult for her to manage at this time. Therefore she was started on metformin 500 mg twice daily with meals. Close MTM follow-up with glycemic pharmacist as outpatient was recommended. Risks and side effects of metformin were explained to the patient and the daughter at discharge, as well as the initial recommendation of insulin and likely need to titrate metformin moving forward. Patient was also given magnesium and potassium supplementation and discharged with follow-up BMP recommended by primary care doctor. For heart rate control she was sent home on Toprol XL 12.5 mg p.o. twice daily. Again she was discharged with apixaban for stroke prophylaxis in paroxysmal atrial fibrillation. She had spontaneously converted and was stable and in sinus rhythm when she was discharged. Close primary care follow-up was recommended.". Please specify below, in your clinical opinion, the diagnosis most responsible for occasioning the IP admission: ( x ) Sepsis ( ) Atrial Fibrillation ( ) Other: Please Specify Physician's Response(s): The lack of sepsis on this list was an oversight. Although I didn't see her septic, and this is a clinical diagnosis, it was documented on admission and the clinical picture that was explained was consistent with sepsis. Typically, sepsis would cause the rapid ventricular response through the overwhelming inflammation, so I would say sepsis would have been the reason for the admission. thanks, sms Thank you Suzy Campa Principal Diagnosis: "that condition established after study, to be chiefly responsible for occasioning the admission of the patient to the hospital for care." Co-Existing Principal Diagnosis: "when two or more diagnoses equally meet the criteria for principal diagnosis as determined by the circumstances of admission, diagnostic work up, and/or therapy provided, and the Alphabetic Index, Tabular List, or another coding guideline does not provide sequencing direction, any one of the diagnoses may be sequenced first." "When the physician has documented what appears to be a current diagnosis in the body of the record, but has not included the diagnosis in the final diagnostic statement, the physician should be asked whether the diagnosis should be added." (Source Coding [facility] 2 QTR90. p3-4) [email or web address]
== END 2022-05-14 18:27 | disposition home or self-care (01) | DRG 871 ==
LOC: ED 00:44 → EDINP 04:08 → SUATTDRO 04:08 → 4W 06:44

== ENCOUNTER 2022-08-21 08:16 | Inpatient (IN) ==
[2022-08-21] MEDS ORDERED: fentaNYL citrate 100 MCG/2 ML VIAL IV STA (08:21)
[2022-08-21] MEDS ORDERED: ONDANSETRON INJ 2 MG/ML 2 ML VIAL IV STA (08:21)
--- NOTE | 2022-08-21 08:28 | Emergency Department Note ---
Impression & Plan Closed fracture of left hip, Anticoagulant long-term use, Closed head injury ED Provider Note Name: ROSALINA LEMUS Age: 86 Sex: F Arrives Via: Ambulance Informant: Patient, EMS, daughter ED Provider: Yasir Monsalve MD Chief Complaint: Left hip pain Impression: As per impressions above Medical Decision Makin-year-old female with A-fib who is anticoagulated had a trip and fall while taking the trash out this morning. Landed on left hip. Patient did strike her head. On examination patient is quite uncomfortable she has a shortened externally rotated left leg. CT of the head is unremarkable. X-rays of the chest are unremarkable. Pelvis and left femur x-rays revealed a compressed left femoral neck fracture. Laboratory work-up is benign. She was given IV fentanyl with mild improvement and then followed with IV Dilaudid doing much better. Did have some spasm and as she is on Ativan 3 times daily she was given 0.5 mg IV lorazepam which she takes orally. This did seem to help some. Hospitalist was consulted for further management. Orthopedic service was also consulted.. I will note that I did not opt to get a CT of the cervical spine as she has not no neck pain no significant head injury is awake alert oriented Triage/Nursing Notes reviewed by Me External chart review by me including hospitalization from May 2022 for new onset A-fib Differentials:Intracranial hemorrhage, cervical fracture, left hip fracture, nonmechanical fall, left hip dislocation, neurovascular injury, compartment syndrome, rhabdo amongst many other pathologies considered. Vital Signs: reviewed and remarkable for no significant abnormalities Interventions: Fentanyl 25 mcg IV, Dilaudid 0.5 mg IV, Zofran 4 mg IV, normal saline bolus Labs:Reviewed and remarkable for no significant findings Imaging:CT of the head without contrast informal interpretation by me reveals no evidence of intracranial hemorrhage nor mass effect nor skull fracture. Radiology read similar see below 1 view chest x-ray interpreted by me. No infiltrate no effusion no pneumothorax no fracture appreciated. 1 view pelvis with left femur xray interpreted by me reveals a left femoral neck compression fracture without much displacement EKG:As per my interpretation. Indication weakness and fall. Normal sinus rhythm at 83 bpm QTc 448. Mild anterior lateral ST depressions no ectopy nor overt other ischemic findings. When compared to EKG from May 13, 2022 EKG is similar. Cardiac/Tele Monitoring: Cardiac Monitoring: An Order was placed for continuous cardiac monitoring. The monitor shows a rate of 80 with a normal sinus rhythm. Consults:Dr Boaz Crawford hospitalist. Dr Snyder of [facility] made aware, discussed with NIEVES in ED regarding patient as well. Plan: Disposition:Hospitalization. Condition: Good History of Present Illness:86-year-old female arrives for evaluation following fall at home. Patient was taking out the trash this morning tripped fell and landed on her left hip. She was unable to get up due to left hip pain. She believes she hit her head on the ground when she fell. Denies any headache or neck pain now. Denies any neurologic deficits. Pain worse with movement better with rest. Admits blood thinner use secondary to her history of A-fib. Denies previous hip or knee injuries or previous surgeries on them. Denies frequent falls. Notes recent UTI denies current urinary burning or frequency. Arrives via EMS no medications prior to arrival. Patient believes this was a mechanical fall and denies any near syncope, lightheadedness, chest pain, shortness of breath or any other concerning signs or symptoms. Denies any recent fevers, chills, shortness of breath, chest pain, abdominal pain, back pain, syncope or other concerning signs or symptoms. No history of DVT or PE but states she has been taking her Eliquis as prescribed Past History:See Below Home Medications:See Below Allergies:pnc, prednisone Vitals:Blood Pressure: 153/87, Pulse 86, RR 24, T 36.4C, O2 96% on RA Physical Exam: GENERAL: Patient is uncomfortable appearing and in moderate distress. HEAD: AT/NC EYES: No scleral icterus, unremarkable pupils. ENT: Mucous membranes moist, no nasal congestion. NECK: Midline trachea, no mass, posterior midline cervical nontender to palpation RESPIRATORY: No dyspnea. Clear to auscultation and equal bilaterally. No wheeze, no rhonchi. CARDIOVASCULAR: Regular.No murmurs, rubs, gallops appreciated. GASTROINTESTINAL: Abdomen soft, non-tender, no peritonitis.Bowel sounds positive.No masses appreciated. EXTREMITIES: Mildly shortened externally rotated left leg. Significant tenderness palpation over the left hip and left mid thigh. Distal sensation, pulses intact. Other extremities unremarkable good pulses NEUROLOGIC: Alert and oriented, no focal neurologic deficits SKIN: No rash, no jaundice, no diaphoresis. PSYCH: Appropriate GCS: 15 ED Course: Times/Reassessments: Mild improvement with fentanyl but much better after IV D ilaudid. Agreeable to hospitalization understands findings of work-up thus far Yasir Monsalve MD Past Med/Surg History Medical History COPD (chronic obstructive pulmonary disease) (03/04/14) JOSE (generalized anxiety disorder) (03/04/14) History of diverticulosis Lower GI bleed Surgical History H/O tubal ligation Family History Other Family history non-contributory Social History Smoking Status: Never smoker Hx Alcohol Use: No Hx Substance Use: No Preferred Language: Romansh Communication Ability: Effective Hand Spinner Required: No Beliefs That Will Affect Care: None Current Living Situation: Alone Feels Safe at Home: Yes Assistive Devices: Cane Allergies Allergies Allergy/AdvReac Type Severity Reaction Status Date / Time Penicillins Allergy Unknown CAN'T Verified 05/11/22 01:33 REMEMBER prednisone AdvReac Intermediate irritabilit Verified 05/11/22 01:33 y Home Meds Home Medications Medication Instructions Recorded Confirmed lorazepam 0.5 mg tablet 0.5 mg PO TID PRN Anxiety 02/22/21 08/21/22 fluconazole 150 mg tablet 150 mg PO UD 08/21/22 08/21/22 metoprolol succinate 25 mg 25 mg PO QAM 08/21/22 08/21/22 tablet,extended release 24 hr Previous Rx's Medication Instructions Recorded apixaban 5 mg tablet (Eliquis) 5 mg PO BID #60 tabs 05/14/22 blood sugar diagnostic (OneTouch #50 ea 05/14/22 Verio test strips) cephalexin 500 mg capsule 500 mg PO QID #20 caps 05/14/22 lancets 33 gauge (OneTouch Delica #100 ea 05/14/22 Plus Lancet) magnesium oxide 400 mg (241.3 mg 400 mg PO QAM #30 tabs 05/14/22 magnesium) tablet metformin 500 mg tablet 500 mg PO BIDWMEAL #60 tabs 05/14/22 Results & Data (ED) Vital Signs Vital Signs - 24 hr 08/21/22 08:37 08/21/22 08:37 08/21/22 08:25 Temperature 36.4 C L Temperature Source Oral Oral Pulse Rate 86 86 Pulse Rate from SpO2 Sensor Respiratory Rate 24 21 Respiratory Effort / Characteristics Non-Labored Respiratory Depth Normal Respiratory Pattern Regular Blood Pressure 153/87 H Blood Pressure Mean 109 Blood Pressure Position Sitting Pulse Oximetry 96 Oxygen Delivery Method Room Air Sepsis Recent Fever Within 48 Hours No Sepsis New/Unexplained Change in Mental Status No Sepsis Action Taken by Nursing No Action Required 08/21/22 08:30 08/21/22 09:00 08/21/22 09:30 Temperature Temperature Source Pulse Rate 85 80 85 Pulse Rate from SpO2 Sensor 80 Respiratory Rate 21 26 H Respiratory Effort / Characteristics Respiratory Depth Respiratory Pattern Blood Pressure Blood Pressure Mean Blood Pressure Position Pulse Oximetry 96 Oxygen Delivery Method Sepsis Recent Fever Within 48 Hours Sepsis New/Unexplained Change in Mental Status Sepsis Action Taken by Nursing 08/21/22 09:31 08/21/22 09:31 08/21/22 10:00 Temperature Temperature Source Pulse Rate 86 Pulse Rate from SpO2 Sensor 87 Respiratory Rate Respiratory Effort / Characteristics Respiratory Depth Respiratory Pattern Blood Pressure 140/85 127/74 Blood Pressure Mean 103 91 Blood Pressure Position Pulse Oximetry 95 Oxygen Delivery Method Sepsis Recent Fever Within 48 Hours Sepsis New/Unexplained Change in Mental Status Sepsis Action Taken by Nursing 08/21/22 10:00 Temperature Temperature Source Pulse Rate 83 Pulse Rate from SpO2 Sensor 85 Respiratory Rate 27 H Respiratory Effort / Characteristics Respiratory Depth Respiratory Pattern Blood Pressure Blood Pressure Mean Blood Pressure Position Pulse Oximetry 95 Oxygen Delivery Method Sepsis Recent Fever Within 48 Hours Sepsis New/Unexplained Change in Mental Status Sepsis Action Taken by Nursing Laboratory Data 08/21/22 08:30 08/21/22 08:30 Lab Results 08/21/22 08/21/22 08/21/22 Range/Units 08:30 08:30 08:30 WBC 15.43 H (4.8-10.8) K/ul RBC 5.04 (4.20-5.40) M/uL Hgb 14.6 (12.0-16.0) g/dl Hct 42.0 (37.0-47.0) % MCV 83.3 (80.0-100.0) fL MCH 29.0 (25.0-34.0) pg MCHC 34.8 (32.0-36.0) g/dL RDW Std Deviation 41.8 (36.4-46.3) fL RDW Coeff of Shilpa 13.7 (11.5-14.5) % Plt Count 336 (130-400) K/uL MPV 10.1 (9.4-12.4) fL Immature Gran % (Auto) 1.0 % Neut % (Auto) 75.7 % Lymph % (Auto) 14.1 % [place] % (Auto) 8.3 % Eos % (Auto) 0.4 % Baso % (Auto) 0.5 % Neut # (Auto) 11.68 H (1.40-6.50) K/uL Lymph # (Auto) 2.18 (1.2-3.4) K/uL [place] # (Auto) 1.28 H (0.11-0.59) K/uL Eos # (Auto) 0.06 (0-0.50) K/uL Baso # (Auto) 0.07 (0-0.2) K/uL Immature Gran # (Auto) 0.16 (0.01-0.20) K/uL PT 10.5 (9.0-12.0) Seconds INR 1.0 (0.9-1.1) APTT 24.8 (21.0-31.0) Seconds PTT Ratio 0.9 Sodium 135 L (136-145) mmol/L Potassium 3.8 (3.5-5.1) mmol/L Chloride 100 (98-107) mmol/L Carbon Dioxide 25 (21-32) mmol/L Anion Gap 10 (3-11) BUN 18 (6-23) mg/dl Creatinine 0.77 (0.6-1.2) mg/dl Est Cr Clr Drug Dosing 47.3 ml/min Est GFR ( Amer) 79.9 ml/min Est GFR (Non-Af Amer) 68.9 ml/min BUN/Creatinine Ratio 23.4 H (10-20) Glucose 277 H (70-99(Fasting)) mg/dl Calcium 9.6 (8.5-10.1) mg/dl Magnesium 1.6 L (1.7-2.4) mg/dl Total Bilirubin 0.6 (0.2-1.0) mg/dl Direct Bilirubin 0.0 (0-0.2) mg/dl AST 17 (13-39) U/L ALT 13 (7-52) U/L Alkaline Phosphatase 79 (34-104) U/L Total Creatine Kinase 81 (26-192) U/L Troponin I High Sens 36.9 H (0-14) pg/ml Total Protein 7.3 (6.0-8.3) gm/dl Albumin 4.0 (3.4-5.0) gm/dl Urine Color Urine Appearance (Clear) Urine pH (4.5-7.5) Ur Specific [place] (1.000-1.030) Urine Protein (Negative) Urine Glucose (UA) (Negative) Urine Ketones (Negative) Urine Blood (Negative) Urine Nitrite (Negative) Urine Bilirubin (Negative) Urine Urobilinogen (Negative) Ur Leukocyte Esterase (Negative) SARS-CoV-2 (PCR) (Negative) Influenza Type A (PCR) (Neg) Influenza Type B (PCR) (Neg) RSV (RT-PCR) (Neg) 08/21/22 08/21/22 Range/Units 08:39 09:40 WBC (4.8-10.8) K/ul RBC (4.20-5.40) M/uL Hgb (12.0-16.0) g/dl Hct (37.0-47.0) % MCV (80.0-100.0) fL MCH (25.0-34.0) pg MCHC (32.0-36.0) g/dL RDW Std Deviation (36.4-46.3) fL RDW Coeff of Shilpa (11.5-14.5) % Plt Count (130-400) K/uL MPV (9.4-12.4) fL Immature Gran % (Auto) % Neut % (Auto) % Lymph % (Auto) % [place] % (Auto) % Eos % (Auto) % Baso % (Auto) % Neut # (Auto) (1.40-6.50) K/uL Lymph # (Auto) (1.2-3.4) K/uL [place] # (Auto) (0.11-0.59) K/uL Eos # (Auto) (0-0.50) K/uL Baso # (Auto) (0-0.2) K/uL Immature Gran # (Auto) (0.01-0.20) K/uL PT (9.0-12.0) Seconds INR (0.9-1.1) APTT (21.0-31.0) Seconds PTT Ratio Sodium (136-145) mmol/L Potassium (3.5-5.1) mmol/L Chloride (98-107) mmol/L Carbon Dioxide (21-32) mmol/L Anion Gap (3-11) BUN (6-23) mg/dl Creatinine (0.6-1.2) mg/dl Est Cr Clr Drug Dosing ml/min Est GFR ( Amer) ml/min Est GFR (Non-Af Amer) ml/min BUN/Creatinine Ratio (10-20) Glucose (70-99(Fasting)) mg/dl Calcium (8.5-10.1) mg/dl Magnesium (1.7-2.4) mg/dl Total Bilirubin (0.2-1.0) mg/dl Direct Bilirubin (0-0.2) mg/dl AST (13-39) U/L ALT (7-52) U/L Alkaline Phosphatase (34-104) U/L Total Creatine Kinase (26-192) U/L Troponin I High Sens (0-14) pg/ml Total Protein (6.0-8.3) gm/dl Albumin (3.4-5.0) gm/dl Urine Color Yellow Urine Appearance Clear (Clear) Urine pH 6.0 (4.5-7.5) Ur Specific [place] 1.013 (1.000-1.030) Urine Protein Negative (Negative) Urine Glucose (UA) 3+ H (Negative) Urine Ketones Trace H (Negative) Urine Blood Negative (Negative) Urine Nitrite Negative (Negative) Urine Bilirubin Negative (Negative) Urine Urobilinogen Negative (Negative) Ur Leukocyte Esterase Negative (Negative) SARS-CoV-2 (PCR) NEGATIVE (Negative) Influenza Type A (PCR) Negative (Neg) Influenza Type B (PCR) Negative (Neg) RSV (RT-PCR) Negative (Neg) Administered Medications Discontinued Medications Fentanyl Citrate (Fentanyl Citrate 100 Mcg/2 Ml Vial) 25 mcg IV NOW STA Stop: 08/21/22 08:22 Last Admin: 08/21/22 08:31 Dose: 25 mcg Documented By: NURIA Hydromorphone HCl (Hydromorphone Inj 0.5 Mg/0.5 Ml Syr) 0.5 mg IV NOW STA Stop: 08/21/22 08:58 Last Admin: 08/21/22 09:33 Dose: 0.5 mg Documented By: NURIA Lorazepam (Lorazepam 2 Mg/1 Ml Vial) 0.5 mg IV NOW STA Stop: 08/21/22 10:30 Last Admin: 08/21/22 10:44 Dose: 0.5 mg Documented By: NURIA Metoprolol Succinate (Metoprolol Succ 25mg Ext Rel Tab) 25 mg PO NOW STA Stop: 08/21/22 11:52 Last Admin: 08/21/22 12:31 Dose: 25 mg Documented By: JUANITO Ondansetron HCl (Ondansetron Inj 2 Mg/Ml 2 Ml Vial) 4 mg IV NOW STA Stop: 08/21/22 08:22 Last Admin: 08/21/22 08:32 Dose: 4 mg Documented By: NURIA Imaging Data Radiologist's Impression: Chest X-Ray 08/21/22 08:21 XR chest 1V not portable CLINICAL HISTORY: trauma COMPARISON STUDY: Chest CT November 15, 2008. Chest radiograph May 12, 2022. FINDINGS: There is no pneumothorax or pleural effusion. Large hiatal hernia is again noted. Cardiomediastinal silhouette is stable. There are no airspace opacities. There is no evidence for pulmonary edema. Several old right-sided rib fractures are present. IMPRESSION: No acute cardiopulmonary findings. No significant change in appearance of the chest. ACT 112: Negative or not required by law. Electronically signed by: Stan Buckley M.D. 08/21/2022 9:37 AM Femur X-Ray 08/21/22 08:21 XR pelvis 1-2V routine, XR femur LT 2V routine HISTORY: 86 years-old Female trauma acute pain of the left pelvis and hip status post fall COMPARISON: CT abdomen and pelvis 02/22/2021 TECHNIQUE: AP view of the pelvis with 2 views of the left femur FINDINGS: PELVIS: Mild to moderate osteoarthritis of the hips. Demineralized appearance of the bones. Degenerative changes of the lower lumbar spine. Arterial calcifications. Foreshortening of the left femoral neck. No dislocation. LEFT femur: Demineralized appearance the bones. There is an acute slightly impacted nondisplaced transcervical fracture. Osteoarthritis of the knee. Mild to moder ate left hip osteoarthritis. No dislocation or avascular necrosis. IMPRESSION: Acute nondisplaced slightly impacted transcervical fracture of the left femur. ACT 112: Negative or not required by law. The above report was generated using voice recognition software. It may contain grammatical, syntax or spelling errors. Electronically signed by: Amilcar Morris M.D. 08/21/2022 9:[address] 08/21/22 08:21 CT OF THE HEAD WITHOUT CONTRAST CLINICAL HISTORY: Trauma. COMPARISON STUDY: Head CT November 15, 2008. CT DOSE: 1277.12 mGycm TECHNIQUE: Helical axial images of the head were obtained without IV contrast. Automated exposure control was utilized for the study. A dose lowering technique was utilized adhering to the principles of ALARA. FINDINGS: No acute intracranial hemorrhage, midline shift or mass effect is present. White matter hypodensities have progressed since prior CT. These favor small vessel disease. The ventricular system is unremarkable. The basal cisterns are patent. No extra-axial collections are present. There are no findings to suggest acute dural sinus thrombosis or acute territorial infarct. No significant calvarial abnormalities are present. Visualized portions of the sinuses and mastoid air cells are clear. IMPRESSION: 1. No acute intracranial findings. 2. No acute calvarial fracture. ACT 112: Negative or not required by law. Electronically signed by: Stan Buckley M.D. 08/21/2022 10:08 AM Pelvis X-Ray 08/21/22 08:21 XR pelvis 1-2V routine, XR femur LT 2V routine HISTORY: 86 years-old Female trauma acute pain of the left pelvis and hip status post fall COMPARISON: CT abdomen and pelvis 02/22/2021 TECHNIQUE: AP view of the pelvis with 2 views of the left femur FINDINGS: PELVIS: Mild to moderate osteoarthritis of the hips. Demineralized appearance of the bones. Degenerative changes of the lower lumbar spine. Arterial calcifications. Foreshortening of the left femoral neck. No dislocation. LEFT femur: Demineralized appearance the bones. There is an acute slightly impacted nondisplaced transcervical fracture. Osteoarthritis of the knee. Mild to moderate left hip osteoarthritis. No dislocation or avascular necrosis. IMPRESSION: Acute nondisplaced slightly impacted transcervical fracture of the left femur. ACT 112: Negative or not required by law. The above report was generated using voice recognition software. It may contain grammatical, syntax or spelling errors. Electronically signed by: Amilcra Morris M.D. 08/21/2022 9:[address] 08/21/22 10:08 CT hip LT wo con CLINICAL HISTORY: Left femoral neck fx, assess displacement preop plan COMPARISON STUDY: Pelvis and left hip radiographs performed earlier today. CT of the abdomen and pelvis March 12, 2021. TECHNIQUE: Axial images of the left hip were obtained without IV contrast. Sagittal and coronal reconstructions were viewed.Automated exposure control was utilized for the study. A dose lowering technique was utilized adhering to the principles of ALARA. FINDINGS: The bladder is collapsed, containing a Wang balloon. There is an acute impacted nondisplaced subcapital fracture of the left femoral neck. There is associated foreshortening of the femoral neck. No additional acute fractures are identified. There is no large adjacent hematoma. No osseous lesion is noted. There is mild joint space narrowing and moderate osteophytosis of the left hip. IMPRESSION: Acute impacted nondisplaced subcapital fracture of the left femoral neck. ACT 112: Negative or not required by law. Electronically signed by: Stan Buckley M.D. 08/21/2022 10:47 AM Discharge Plan Visit Data Chief Complaint: Fall Stated Complaint: FALL, HIP & NECK PAIN ED Provider: Yasir Monsalve Discharge Problem: Closed fracture of left hip, Anticoagulant long-term use, Closed head injury Discharge Instructions Interventions: ED Discharge Assessment Last Done: 08/21/22 12:48 : Closed fracture of left hip Qualifiers: Encounter type: initial encounter Qualified Code(s): S72.002A - Fracture of un specified part of neck of left femur, initial encounter for closed fracture Closed head injury Qualifiers: Encounter type: initial encounter Qualified Code(s): S09.90XA - Unspecified injury of head, initial encounter
[2022-08-21 08:56] LABS: Basophils # (auto) 0.07 K/uL (0-0.2); Basophils % (auto) 0.5 %; Eosinophils # (auto) 0.06 K/uL (0-0.50); Eosinophils % (auto) 0.4 %; Hemoglobin 14.6 g/dl (12.0-16.0); Immature Granulocytes # (auto) 0.16 K/uL (0.01-0.20); Lymphocytes # (auto) 2.18 K/uL (1.2-3.4); Lymphocytes % (auto) 14.1 %; Mean Corpuscular Hgb Conc 34.8 g/dL (32.0-36.0); Mean Corpuscular Volume 83.3 fL (80.0-100.0); Mean Platelet Volume 10.1 fL (9.4-12.4); Monocytes # (auto) 1.28 K/uL (0.11-0.59); Monocytes % (auto) 8.3 %; Neutrophils # (auto) 11.68 K/uL (1.40-6.50); Neutrophils % (auto) 75.7 %; Platelet Count 336 K/uL (130-400); RDW Coefficient of Variation 13.7 % (11.5-14.5); RDW Standard Deviation 41.8 fL (36.4-46.3); Red Blood Count 5.04 M/uL (4.20-5.40); White Blood Count 15.43 K/ul (4.8-10.8)
[2022-08-21] MEDS ORDERED: HYDROmorphone INJ 0.5 MG/0.5 ML SYR IV STA (08:57)
[2022-08-21 09:05] LABS: Appearance Urine Clear (Clear); Bilirubin Urine Negative (Negative); Blood Urine Negative (Negative); Color Urine Yellow; Glucose Urine UA 3+ (Negative); Ketones Urine Trace (Negative); Leukocyte Esterase Urine Negative (Negative); Nitrite Urine Negative (Negative); Protein Urine Negative (Negative); Specific Gravity Urine 1.013 (1.000-1.030); Urobilinogen Urine Negative (Negative)
[2022-08-21 09:09] LABS: BUN Creatinine Ratio 23.4 (10-20); Bilirubin,Total 0.6 mg/dl (0.2-1.0); Calcium 9.6 mg/dl (8.5-10.1); Creatinine Clr Calc Pharmacy 47.3 ml/min; Est GFR (African American) 79.9 ml/min; Est GFR (Non-African American) 68.9 ml/min; Magnesium 1.6 mg/dl (1.7-2.4); Potassium 3.8 mmol/L (3.5-5.1); Total Protein 7.3 gm/dl (6.0-8.3)
[2022-08-21 09:16] LABS: Troponin I High Sensitivity 36.9 pg/ml (0-14)
[2022-08-21 09:21] LABS: Partial Thromboplastin Ratio 0.9; Partial Thromboplastin Time 24.8 Seconds (21.0-31.0); Prothrombin Time 10.5 Seconds (9.0-12.0)
--- NOTE | 2022-08-21 09:38 | XRay Report ---
XR chest 1V not portable CLINICAL HISTORY: trauma COMPARISON STUDY: Chest CT November 15, 2008. Chest radiograph May 12, 2022. FINDINGS: There is no pneumothorax or pleural effusion. Large hiatal hernia is again noted. Cardiomed iastinal silhouette is stable. There are no airspace opacities. There is no evidence for pulmonary ed britt. Several old right-sided rib fractures are present. IMPRESSION: No acute cardiopulmonary findings. No significant change in appearance of the chest. ACT 112: Negative or not required by law. Electronically signed by: Stan Buckley M.D. 08/21/2022 9:37 AM
--- NOTE | 2022-08-21 09:39 | XRay Report ---
XR pelvis 1-2V routine, XR femur LT 2V routine HISTORY: 86 years-old Female trauma acute pain of the left pelvis and hip status post fall COMPARISON: CT abdomen and pelvis 02/22/2021 TECHNIQUE: AP view of the pelvis with 2 views of the left femur FINDINGS: PELVIS: Mild to moderate osteoarthritis of the hips. Demineralized appearance of the bones. Degenerative james ges of the lower lumbar spine. Arterial calcifications. Foreshortening of the left femoral neck. No d islocation. LEFT femur: Demineralized appearance the bones. There is an acute slightly impacted nondisplaced transcervical fr acture. Osteoarthritis of the knee. Mild to moderate left hip osteoarthritis. No dislocation or avasc ular necrosis. IMPRESSION: Acute nondisplaced slightly impacted transcervical fracture of the left femur. ACT 112: Negative or not required by law. The above report was generated using voice recognition software. It may contain grammatical, syntax o r spelling errors. Electronically signed by: Amilcar Morris M.D. 08/21/2022 9:38 AM
--- NOTE | 2022-08-21 09:59 | History & Physical Report ---
Date of Service August 21, 2022 Assessment & Plan (1) Fracture of femoral neck, left: (2) Fall: Plan: - Admit to tele - Hip fracture order set completed - Ortho consulted- no plans for surgery today as last took eliquis 08/20 at 7 pm. Hold for at least 24 hours. Likely surgical procedure tomorrow - await final decision per ortho team. Appreciate recs. - Allow diet today and make NPO at midnight - PT/OT - Imaging was reviewed with the patient and her daughter at bedside. - Allow ativan for anxiety, can order baclofen for muscle spasms prn - Pain control with Tylenol [id number], morphine sulfate IV for breakthrough pain, bowel regimen ordered (3) DMII (diabetes mellitus, type 2): Plan: - Hold metformin - Check A1C with am labs - ISS with accuchecks achs (4) Paroxysmal A-fib: Plan: - Chronic, holding eliquis - Give dose of metoprolol now since missed morning meds DVT ppx: - teds, scds CODE: Full code Dispo: From home, likely to remain in the hospital x 1-2 days. Will likely require inpatient PT OT after hospital stay. A total of 78 minutes were spent with greater than 50% of that time face to face with the patient, personally reviewing all current laboratories, imaging studies, past medication reconciliation, outpatient chart review, and discussion with specialists to collaborate care for the patient with attending. Please see attending documentation for corrections and/or additions. History of Present Illness Chief Complaint: Fall Primary Care Provider: Lance Conklin MD This is an 86-year-old female with PMHx of DM type II, paroxysmal A-fib on eliquis, HTN, vitamin D deficiency, COPD mild, major depressive disorder and anxiety, who fell this morning while attempting to take out her garbage to the curb. She sustained a left femoral neck femur upon imaging review. She reports holding a trash container open and trying to place a small bag into it, while she was wearing slipper and thinks maybe she tripped. Denies syncope, dizziness or lightheadedness preceding the fall. She was on the ground for about an hour, and was wearing several layers. Her neighbor found her and helped her back into her home. Daughter was on her way and arrived right when she got into the house. Pt was unable to place weight on it. Last took Eliquis at 7 pm last night. She did not take any other medications this morning. Pain is currently well controlled and she has just been given some ativan for her anxiety and is very calm. Daughter supports the history and notes the pt is very independent and lives alone, does all ADLS herself. Does not use a walker at baseline. Allergies Allergy/AdvReac Type Severity Reaction Status Date / Time Penicillins Allergy Unknown CAN'T Verified 05/11/22 01:33 REMEMBER prednisone AdvReac Intermediate irritabilit Verified 05/11/22 01:33 y Home Medications Medication Instructions Recorded Confirmed Type lorazepam 0.5 mg tablet 0.5 mg PO TID PRN Anxiety 02/22/21 08/21/22 History apixaban 5 mg tablet (Eliquis) 5 mg PO BID #60 tabs 05/14/22 08/21/22 Rx blood sugar diagnostic (OneTouch #50 ea 05/14/22 Rx Verio test strips) cephalexin 500 mg capsule 500 mg PO QID #20 caps 05/14/22 08/21/22 Rx lancets 33 gauge (BubbleballTouch Delica #100 ea 05/14/22 Rx Plus Lancet) magnesium oxide 400 mg (241.3 mg 400 mg PO QAM #30 tabs 05/14/22 08/21/22 Rx magnesium) tablet metformin 500 mg tablet 500 mg PO BIDWMEAL #60 tabs 05/14/22 08/21/22 Rx fluconazole 150 mg tablet 150 mg PO UD 08/21/22 08/21/22 History metoprolol succinate 25 mg 25 mg PO QAM 08/21/22 08/21/22 History tablet,extended release 24 hr Past Med/Surg History Medical History COPD (chronic obstructive pulmonary disease) (03/04/14) JOSE (generalized anxiety disorder) (03/04/14) History of diverticulosis Lower GI bleed Surgical History H/O tubal ligation Family History Other Family history non-contributory Social History Smoking Status: Never smoker Hx Alcohol Use: No Hx Substance Use: No Preferred Language: Japanese Communication Ability: Effective Experience Designer Required: No Beliefs That Will Affect Care: Spiritual Current Living Situation: Alone Feels Safe at Home: Yes Assistive Devices: Cane Review of Systems Review of Systems: Constitutional: No fever, sweats or chills Eyes: No diplopia, no worsening or blurred vision ENT: normal hearing, no trouble swallowing Respiratory: No cough, sputum, dyspnea at rest or on exertion Cardiovascular: No chest pain, tightness or palpitations Abdomen: No pain, nausea, vomiting, diarrhea or constipation Musculoskeletal: Left hip pain with movement, otherwise no joint pain, calf pain, swelling Neurologic: No weakness, numbness/tingling, or balance problems Psychiatric: No anxiety or depression Skin: No rash or itch Physical Exam Physical Exam: General: awake, alert, no apparent distress Head: Normocephalic, atraumatic ENT: PERRL, EOMI, no pharyngeal exudate, mucous membranes dry Chest: Clear to auscultation, on room air, no adventitious breath sounds Cardiac: Irregularly irregular, rate controlled, soft systolic murmur, no JVD, normal peripheral pulses, good capillary refill Abdominal: NABS x 4 quadrants, soft, nondistended, nontender to palpation, no rebound or guarding Extremities: Normal inspection, no peripheral edema or erythema, calfs nontender to palpation Psych: Normal mood and affect Neuro: AAO x 3, strength intact bilaterally and rated 5/5, no motor deficits, speech is clear, no peripheral sensory deficits Results & Data Results & Data ([facility]) Vital Signs (Past 12 Hours) Vital Signs Temp Pulse Resp BP Pulse Ox O2 Del Method 08/21/22 08:37 36.4 C L 86 24 153/87 H 96 Room Air Laboratory Results 08/21/22 08/21/22 08/21/22 08:39 08:30 08:30 WBC RBC Hgb Hct MCV MCH MCHC RDW Std Deviation RDW Coeff of Shilpa Plt Count MPV Immature Gran % (Auto) Neut % (Auto) Lymph % (Auto) Stewart % (Auto) Eos % (Auto) Baso % (Auto) Neut # (Auto) Lymph # (Auto) Stewart # (Auto) Eos # (Auto) Baso # (Auto) Immature Gran # (Auto) PT 10.5 INR 1.0 APTT 24.8 PTT Ratio 0.9 Sodium 135 L Potassium 3.8 Chloride 100 Carbon Dioxide 25 Anion Gap 10 BUN 18 Creatinine 0.77 Est Cr Clr Drug Dosing 47.3 Est GFR ( Amer) 79.9 Est GFR (Non-Af Amer) 68.9 BUN/Creatinine Ratio 23.4 H Glucose 277 H Calcium 9.6 Magnesium 1.6 L Total Bilirubin 0.6 Direct Bilirubin 0.0 AST 17 ALT 13 Alkaline Phosphatase 79 Total Creatine Kinase 81 Troponin I High Sens 36.9 H Total Protein 7.3 Albumin 4.0 Urine Color Yellow Urine Appearance Clear Urine pH 6.0 Ur Specific [place] 1.013 Urine Protein Negative Urine Glucose (UA) 3+ H Urine Ketones Trace H Urine Blood Negative Urine Nitrite Negative Urine Bilirubin Negative Urine Urobilinogen Negative Ur Leukocyte Esterase Negative 08/21/22 08:30 WBC 15.43 H RBC 5.04 Hgb 14.6 Hct 42.0 MCV 83.3 MCH 29.0 MCHC 34.8 RDW Std Deviation 41.8 RDW Coeff of Shilpa 13.7 Plt Count 336 MPV 10.1 Immature Gran % (Auto) 1.0 Neut % (Auto) 75.7 Lymph % (Auto) 14.1 Stewart % (Auto) 8.3 Eos % (Auto) 0.4 Baso % (Auto) 0.5 Neut # (Auto) 11.68 H Lymph # (Auto) 2.18 Stewart # (Auto) 1.28 H Eos # (Auto) 0.06 Baso # (Auto) 0.07 Immature Gran # (Auto) 0.16 PT INR APTT PTT Ratio Sodium Potassium Chloride Carbon Dioxide Anion Gap BUN Creatinine Est Cr Clr Drug Dosing Est GFR ( Amer) Est GFR (Non-Af Amer) BUN/Creatinine Ratio Glucose Calcium Magnesium Total Bilirubin Direct Bilirubin AST ALT Alkaline Phosphatase Total Creatine Kinase Troponin I High Sens Total Protein Albumin Urine Color Urine Appearance Urine pH Ur Specific [place] Urine Protein Urine Glucose (UA) Urine Ketones Urine Blood Urine Nitrite Urine Bilirubin Urine Urobilinogen Ur Leukocyte Esterase Diagnostic Findings Chest X-Ray 08/21/22 08:21 XR chest 1V not portable CLINICAL HISTORY: trauma COMPARISON STUDY: Chest CT November 15, 2008. Chest radiograph May 12, 2022. FINDINGS: There is no pneumothorax or pleural effusion. Large hiatal hernia is again noted. Cardiomediastinal silhouette is stable. There are no airspace opacities. There is no evidence for pulmonary edema. Several old right-sided rib fractures are present. IMPRESSION: No acute cardiopulmonary findings. No significant change in appearance of the chest. ACT 112: Negative or not required by law. Electronically signed by: Stan Buckley M.D. 08/21/2022 9:37 AM Femur X-Ray 08/21/22 08:21 XR pelvis 1-2V routine, XR femur LT 2V routine HISTORY: 86 years-old Female trauma acute pain of the left pelvis and hip status post fall COMPARISON: CT abdomen and pelvis 02/22/2021 TECHNIQUE: AP view of the pelvis with 2 views of the left femur FINDINGS: PELVIS: Mild to moderate osteoarthritis of the hips. Demineralized appearance of the bones. Degenerative changes of the lower lumbar spine. Arterial calcifications. Foreshortening of the left femoral neck. No dislocation. LEFT femur: Demineralized appearance the bones. There is an acute slightly impacted nondispl aced transcervical fracture. Osteoarthritis of the knee. Mild to moderate left hip osteoarthritis. No dislocation or avascular necrosis. IMPRESSION: Acute nondisplaced slightly impacted transcervical fracture of the left femur. ACT 112: Negative or not required by law. The above report was generated using voice recognition software. It may contain grammatical, syntax or spelling errors. Electronically signed by: Amilcar Morris M.D. 08/21/2022 9:38 AM Pelvis X-Ray 08/21/22 08:21 XR pelvis 1-2V routine, XR femur LT 2V routine HISTORY: 86 years-old Female trauma acute pain of the left pelvis and hip status post fall COMPARISON: CT abdomen and pelvis 02/22/2021 TECHNIQUE: AP view of the pelvis with 2 views of the left femur FINDINGS: PELVIS: Mild to moderate osteoarthritis of the hips. Demineralized appearance of the bones. Degenerative changes of the lower lumbar spine. Arterial calcifications. Foreshortening of the left femoral neck. No dislocation. LEFT femur: Demineralized appearance the bones. There is an acute slightly impacted nondisplaced transcervical fracture. Osteoarthritis of the knee. Mild to moderate left hip osteoarthritis. No dislocation or avascular necrosis. IMPRESSION: Acute nondisplaced slightly impacted transcervical fracture of the left femur. ACT 112: Negative or not required by law. The above report was generated using voice recognition software. It may contain grammatical, syntax or spelling errors. Electronically signed by: Amilcar Morris M.D. 08/21/2022 9:38 AM Code Status & VTE Plan Code Status Full code - discussed with the patient and daughter at bedside Supervising Physician Co-Signing Physician Notes Attending addendum: The patient was seen and examined in the emergency room She complains to pain in the left lower extremity with movement Denies any other symptoms Status post mechanical fall and remained in the ground for about an hour On examination Moderate distress due to pain Hemodynamically stable Chest-clear to auscultate bilateral Heart-S1-S2, regular Abdomen-benign Extremities-negative for any edema Any movement of the left left lower extremity produces pain Heart admission labs, EKG and imaging studies reviewed Status post mechanical fall with fracture of the femoral neck on the left side History of paroxysmal atrial fibrillation on Eliquis-which is on hold now-Will need to start Eliquis as soon as okay by the Ortho Will have surgery tomorrow as per Ortho Agree with assessment and plan as noted above by Janny Buckley
--- NOTE | 2022-08-21 10:11 | CT Scan Report ---
CT OF THE HEAD WITHOUT CONTRAST CLINICAL HISTORY: Trauma. COMPARISON STUDY: Head CT November 15, 2008. CT DOSE: 1277.12 mGycm TECHNIQUE: Helical axial images of the head were obtained without IV contrast. Automated exposure con trol was utilized for the study. A dose lowering technique was utilized adhering to the principles o f ALARA. FINDINGS: No acute intracranial hemorrhage, midline shift or mass effect is present. White matter hyp odensities have progressed since prior CT. These favor small vessel disease. The ventricular system i s unremarkable. The basal cisterns are patent. No extra-axial collections are present. There are no f indings to suggest acute dural sinus thrombosis or acute territorial infarct. No significant calvaria l abnormalities are present. Visualized portions of the sinuses and mastoid air cells are clear. IMPRESSION: 1. No acute intracranial findings. 2. No acute calvarial fracture. ACT 112: Negative or not required by law. Electronically signed by: Stan Buckley M.D. 08/21/2022 10:08 AM
[2022-08-21] MEDS ORDERED: LORazepam 2 MG/1 ML VIAL IV STA (10:29)
--- NOTE | 2022-08-21 10:48 | CT Scan Report ---
CT hip LT wo con CLINICAL HISTORY: Left femoral neck fx, assess displacement preop plan COMPARISON STUDY: Pelvis and left hip radiographs performed earlier today. CT of the abdomen and pel vis March 12, 2021. TECHNIQUE: Axial images of the left hip were obtained without IV contrast. Sagittal and coronal recon structions were viewed.Automated exposure control was utilized for the study. A dose lowering techni que was utilized adhering to the principles of ALARA. FINDINGS: The bladder is collapsed, containing a Wang balloon. There is an acute impacted nondisplac ed subcapital fracture of the left femoral neck. There is associated foreshortening of the femoral ne ck. No additional acute fractures are identified. There is no large adjacent hematoma. No osseous les ion is noted. There is mild joint space narrowing and moderate osteophytosis of the left hip. IMPRESSION: Acute impacted nondisplaced subcapital fracture of the left femoral neck. ACT 112: Negative or not required by law. Electronically signed by: Stan Buckley M.D. 08/21/2022 10:47 AM
[2022-08-21 10:50] LABS: Influenza A virus by PCR Negative (Neg); Influenza B virus by PCR Negative (Neg); RSV by PCR Negative (Neg); SARS CoV2 RNA(COVID-19) Ceph NEGATIVE (Negative)
[2022-08-21] MEDS ORDERED: METOPROLOL SUCC 25MG EXT REL TAB PO STA (11:51)
--- NOTE | 2022-08-21 12:50 | Electrocardiogram Report ---
Test Reason : Blood Pressure : / mmHG Vent. Rate : 083 BPM Atrial Rate : 083 BPM P-R Int : 164 ms QRS Dur : 078 ms QT Int : 382 ms P-R-T Axes : 065 037 056 degrees QTc Int : 448 ms Poor data quality, interpretation may be adversely affected Normal sinus rhythm with sinus arrhythmia Minor Nonspecific ST abnormality Anterior leads Abnormal ECG When compared with ECG of 13-MAY-2022 04:09, ST now depressed in Anterior leads Confirmed by Alexandro Briceño ([id number]) on 08/21/2022 12:50:12 PM Referred By: ED Confirmed By:Alexandro Briceño
[2022-08-21] MEDS ORDERED: bisacodyL 10 MG SUPP PR PRN (13:12)
[2022-08-21] MEDS ORDERED: ONDANSETRON INJ 2 MG/ML 2 ML VIAL IV PRN (13:12)
[2022-08-21] MEDS ORDERED: GLUCAGON FOR INJ 1 MG VIAL SQ PRN (13:12)
[2022-08-21] MEDS ORDERED: DEXTROSE 50% 50 ML SYRINGE IV PRN (13:12)
[2022-08-21] MEDS ORDERED: MoRPHine SULFATE 2 MG/ML CARP IV PRN (13:12)
[2022-08-21] MEDS ORDERED: MAGNESIUM HYDROXIDE SUSP 30 ML UDC PO PRN (13:12)
[2022-08-21] MEDS ORDERED: NALOXONE HCL 0.4 MG/1 ML VIAL/CARP IV PRN (13:12)
[2022-08-21] MEDS ORDERED: GLUCOSE 40% GEL 15 GM TUBE PO PRN (13:12)
[2022-08-21] MEDS ORDERED: CARBOHYDRATES FOR HYPOGLYCEMIA PO PRN (13:12)
[2022-08-21] MEDS ORDERED: GLUCOSE 10 TAB/TUBE PO PRN (13:12)
[2022-08-21] MEDS: ACETAMINOPHEN 500 MG TAB PO SCH ×2 (14:05→20:29)
[2022-08-21] MEDS: INSULIN ASPART PER UNIT SC SCH ×3 (14:05→19:55)
[2022-08-21] MEDS: bisacodyL 5 MG TABEC PO SCH (14:05)
[2022-08-21] MEDS: BACLOFEN 10 MG TAB PO PRN (17:26)
--- NOTE | 2022-08-21 18:39 | Orthopedic Consultation ---
Date of Consultation August 21, 2022 Assessment & Plan (1) Fracture of femoral neck, left, closed: She has a minimally displaced valgus impacted left hip femoral neck fracture. This can be adequately treated with percutaneous screw fixation; no significant displacement to warrant a hip hemiarthroplasty. This was explained to the patient and her family, who are in agreement with this plan. She is on Eliquis, and will need to wait 48 hours from her last dose for surgery. Dr. 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 NIURKA Sams will coordinate with him regarding timing of surgery. Recommend bed rest to avoid displacement of this femoral neck fracture until surgery. N.p.o. after midnight in case surgery is planned for tomorrow. History of Present Illness Reason for Consultation: Left hip fracture Attending Physician: Adriana Cunningham, History of Present Illness Ms. Francis is an 86-year-old female who injured her left hip during a ground- level fall while taking out the trash this morning. She reports that she just slipped, and denies any dizziness or syncope. She denies any other injury other than her left hip during this fall. She had immediate pain and inability to bear weight on that left leg. She was laying on the ground for over an hour before her neighbor helped her up into her rocking chair, but she was still unable to put any weight on her leg, and was therefore brought to the emergency room for further evaluation. Of note, she has atrial fibrillation and is on Eliquis for this. She took her last dose at 7 PM last night. Allergies Allergy/AdvReac Type Severity Reaction Status Date / Time Penicillins Allergy Unknown CAN'T Verified 05/11/22 01:33 REMEMBER prednisone AdvReac Intermediate irritabilit Verified 05/11/22 01:33 y Home Medications Medication Instructions Recorded Confirmed Type lorazepam 0.5 mg tablet 0.5 mg PO TID PRN Anxiety 02/22/21 08/21/22 History apixaban 5 mg tablet (Eliquis) 5 mg PO BID #60 tabs 05/14/22 08/21/22 Rx blood sugar diagnostic (Bookatable (Livebookings)Touch #50 ea 05/14/22 Rx Verio test strips) cephalexin 500 mg capsule 500 mg PO QID #20 caps 05/14/22 08/21/22 Rx lancets 33 gauge (OneTouch Delica #100 ea 05/14/22 Rx Plus Lancet) magnesium oxide 400 mg (241.3 mg 400 mg PO QAM #30 tabs 05/14/22 08/21/22 Rx magnesium) tablet metformin 500 mg tablet 500 mg PO BIDWMEAL #60 tabs 05/14/22 08/21/22 Rx fluconazole 150 mg tablet 150 mg PO UD 08/21/22 08/21/22 History metoprolol succinate 25 mg 25 mg PO QAM 08/21/22 08/21/22 History tablet,extended release 24 hr Patient History Medical History COPD (chronic obstructive pulmonary disease) (03/04/14) JOSE (generalized anxiety disorder) (03/04/14) History of diverticulosis Lower GI bleed Surgical History H/O tubal ligation Family History Other Family history non-contributory Social History Smoking Status: Never smoker Hx Alcohol Use: No Hx Substance Use: No Preferred Language: Chilean Communication Ability: Effective 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 There is minimal shortening of the leg. There is [mild] swelling and tenderness to palpation of the thigh and hip area. Compartments are soft and compressible. Intact ankle dorsiflexion and plantarflexion. Results & Data ([facility]) Vital Signs (Past 12 Hours) Vital Signs Temp Pulse Resp BP Pulse Ox Pulse Ox O2 Del Method 08/21/22 18:00 Nasal Cannula 08/21/22 17:12 95 08/21/22 10:30 92 H 29 H 93 08/21/22 10:00 83 27 H 95 08/21/22 10:00 127/74 08/21/22 09:31 86 95 08/21/22 09:31 140/85 08/21/22 09:30 85 08/21/22 09:00 80 26 H 96 08/21/22 08:30 85 21 08/21/22 08:25 86 21 08/21/22 08:37 36.4 C L 86 24 153/87 H 96 Room Air O2 Del Method O2 Flow Rate O2 Flow Rate 08/21/22 18:00 2 08/21/22 17:12 Nasal Cannula 2 08/21/22 10:30 08/21/22 10:00 08/21/22 10:00 08/21/22 09:31 08/21/22 09:31 08/21/22 09:30 08/21/22 09:00 08/21/22 08:30 08/21/22 08:25 08/21/22 08:37 Diagnostic Findings X-rays and CT scan of the left hip show a minimally displaced valgus impacted femoral neck fracture.
[2022-08-21] MEDS ORDERED: PNEUMOCOCCAL POLYSACCHARIDES 25 MCG/0.5 ML VIAL/SYR IM ONE (18:45)
[2022-08-21] MEDS: DOCUSATE SODIUM/SENNA 50/8.6MG TAB PO SCH (20:29)
[2022-08-21] MEDS: LORazepam 0.5 MG TAB PO PRN (20:29)
[2022-08-21] MEDS ORDERED: LORATADINE 10 MG TAB PO ONE (22:17)
[2022-08-22] MEDS: BACLOFEN 10 MG TAB PO PRN (00:52)
[2022-08-22] MEDS: ACETAMINOPHEN 500 MG TAB PO SCH ×3 (05:58→22:01)
[2022-08-22] MEDS ORDERED: CLINDAMYCIN/D5W 900 MG/50 ML BAG IV SCH (06:00)
[2022-08-22 06:36] LABS: Hematocrit (blood only) 36.9 % (37.0-47.0); Hemoglobin 12.8 g/dl (12.0-16.0); Mean Corpuscular Hgb Conc 34.7 g/dL (32.0-36.0); Mean Corpuscular Volume 83.7 fL (80.0-100.0); Mean Platelet Volume 10.3 fL (9.4-12.4); Platelet Count 276 K/uL (130-400); RDW Coefficient of Variation 13.9 % (11.5-14.5); RDW Standard Deviation 42.4 fL (36.4-46.3); Red Blood Count 4.41 M/uL (4.20-5.40); White Blood Count 9.53 K/ul (4.8-10.8)
[2022-08-22 06:56] LABS: Calcium 8.6 mg/dl (8.5-10.1)
[2022-08-22 07:02] LABS: BUN Creatinine Ratio 16.4 (10-20); Creatinine Clr Calc Pharmacy 49.9 ml/min; Est GFR (African American) 85.2 ml/min; Est GFR (Non-African American) 73.5 ml/min
[2022-08-22 07:09] LABS: Estimated Average Glucose 240 mg/dl
[2022-08-22] MEDS: INSULIN ASPART PER UNIT SC SCH ×4 (07:58→21:49)
[2022-08-22] MEDS: METOPROLOL SUCC 25MG EXT REL TAB PO SCH (08:00)
[2022-08-22] MEDS: bisacodyL 5 MG TABEC PO SCH (08:00)
[2022-08-22] MEDS: MAGNESIUM OXIDE 400 MG TAB PO SCH (08:01)
[2022-08-22] MEDS ORDERED: fentaNYL citrate 100 MCG/2 ML VIAL ONE ×2 (08:38→12:32)
--- NOTE | 2022-08-22 08:47 | Anesthesiology Consultation ---
Date of Service August 22, 2022 Assessment & Plan (1) Encounter for pre-operative examination: Chart Review Chart Review: Acceptable Risk for Surgery and Patient NOT seen in Pre Admission Testing Consults Requested none History Height/Weight Height: 5 ft 6 in Weight: 67.9 kg Allergies Allergy/AdvReac Type Severity Reaction Status Date / Time latex Allergy Mild Rash Verified 08/21/22 22:43 Penicillins Allergy Unknown CAN'T Verified 05/11/22 01:33 REMEMBER prednisone AdvReac Intermediate irritabilit Verified 05/11/22 01:33 y Medications Home Medications Medication Instructions Recorded Confirmed Last Taken lorazepam 0.5 mg tablet 0.5 mg PO TID PRN Anxiety 02/22/21 08/21/22 08/21/22 apixaban 5 mg tablet (Eliquis) 5 mg PO BID #60 tabs 05/14/22 08/21/22 08/20/22 blood sugar diagnostic (OneTouch #50 ea 05/14/22 Unknown Verio test strips) cephalexin 500 mg capsule 500 mg PO QID #20 caps 05/14/22 08/21/22 08/15/22 lancets 33 gauge (OneTouch Delica #100 ea 05/14/22 Unknown Plus Lancet) magnesium oxide 400 mg (241.3 mg 400 mg PO QAM #30 tabs 05/14/22 08/21/22 08/20/22 magnesium) tablet metformin 500 mg tablet 500 mg PO BIDWMEAL #60 tabs 05/14/22 08/21/22 08/20/22 fluconazole 150 mg tablet 150 mg PO UD 08/21/22 08/21/22 08/18/22 metoprolol succinate 25 mg 25 mg PO QAM 08/21/22 08/21/22 08/20/22 tablet,extended release 24 hr Active Medications Generic Name Dose Route Start Last Admin Trade Name Freq PRN Reason Stop Dose Admin Acetaminophen 1,000 mg 08/21/22 14:00 08/22/22 05:58 Acetaminophen 500 Mg Tab PO 09/20/22 13:59 1,000 mg Q8H QI Administration Baclofen 10 mg 08/21/22 11:21 08/22/22 00:52 Baclofen 10 Mg Tab PO 09/20/22 13:59 10 mg TID PRN Administration muscle spasm Bisacodyl 5 mg 08/21/22 13:30 08/22/22 08:00 Bisacodyl 5 Mg Tabec PO 09/20/22 13:29 5 mg DAILY QI Administration Insulin Aspart 0 units 08/21/22 13:30 08/22/22 07:58 Insulin Aspart Per Unit SC 09/20/22 13:29 1 units ACHS QI Administration Lorazepam 0.5 mg 08/21/22 13:12 08/21/22 20:29 Lorazepam 0.5 Mg Tab PO 09/20/22 13:11 0.5 mg TID PRN Administration Anxiety Magnesium Oxide 400 mg 08/22/22 09:00 08/22/22 08:01 Magnesium Oxide 400 Mg Tab PO 09/21/22 08:59 400 mg QAM QI Administration Metoprolol Succinate 25 mg 08/22/22 09:00 08/22/22 08:00 Metoprolol Succ 25mg Ext Rel Tab PO 09/21/22 08:59 25 mg QAM QI Administration Senna/Docusate Sodium 2 tab 08/21/22 21:00 08/21/22 20:29 Docusate Sodium/Senna 50/8.6mg Tab PO 09/20/22 20:59 2 tab HS QI Administration Past Medical History Medical History COPD (chronic obstructive pulmonary disease) (03/04/14) JOSE (generalized anxiety disorder) (03/04/14) History of diverticulosis Left leg DVT Lower GI bleed Past Family History Family History Other Family history non-contributory Past Surgical History Surgical History H/O tubal ligation Social History Smoking Status: Never smoker Hx Alcohol Use: No Hx Substance Use: No substance use type: does not use Physical Exam Vital Signs Last Vital Signs Temp 98.1 F 08/22/22 08:40 Pulse 102 H 08/22/22 08:40 Resp 20 08/22/22 08:40 BP 110/65 08/22/22 08:40 Pulse Ox 96 08/22/22 08:40 O2 Del Method 08/22/22 08:40 O2 Flow Rate 1 08/22/22 08:40 Testing Laboratory Results 08/22/22 05:43 08/22/22 05:43 PT 10.5 Seconds (9.0-12.0) 08/21/22 08:30 INR 1.0 (0.9-1.1) 08/21/22 08:30 APTT 24.8 Seconds (21.0-31.0) 08/21/22 08:30 Hemoglobin A1c 10.0 % (4.5-5.6) H 08/22/22 05:43 Urine Color Yellow 08/21/22 08:39 Urine Appearance Clear (Clear) 08/21/22 08:39 Urine pH 6.0 (4.5-7.5) 08/21/22 08:39 Ur Specific [place] 1.013 (1.000-1.030) 08/21/22 08:39 Urine Protein Negative (Negative) 08/21/22 08:39 Urine Glucose (UA) 3+ (Negative) H 08/21/22 08:39 Urine Ketones Trace (Negative) H 08/21/22 08:39 Urine Nitrite Negative (Negative) 08/21/22 08:39 Ur Leukocyte Esterase Negative (Negative) 08/21/22 08:39 Blood Type O Positive 08/21/22 13:16 Antibody Screen NEGATIVE 08/21/22 13:16 08/22/22 07:19 POC Glucose 190 H Electrocardiogram Date: 08/21/22 Findings: + NSR @ Normal sinus rhythm with sinus arrhythmia Minor Nonspecific ST abnormality Anterior leads Abnormal ECG
[2022-08-22] MEDS: POLYETHYLENE (MIRALAX) 17 GM PACK PO SCH (10:05)
--- NOTE | 2022-08-22 10:44 | History & Physical Bridge Note ---
Date of Service August 22, 2022 History & Physical Bridge Note I have examined the patient, reviewed the History & Physical and in the interval since the performance of the History & Physical I have noted the following changes of clinical significance: I will be covering on-call responsibilities for Dr. Lloyd and after consultation with [facility] providers I will be performing an open reduction internal fixation of the patient's left hip due to minimally displaced femoral neck fracture.
[2022-08-22] MEDS ORDERED: fentaNYL citrate 100 MCG/2 ML VIAL IV PRN (10:51)
[2022-08-22] MEDS ORDERED: ATROPINE SULFATE 0.1 MG/ML 10ML SYR IV PRN (10:51)
[2022-08-22] MEDS ORDERED: ePHEDrine sulfate 50 MG/ML AMP IV PRN (10:51)
[2022-08-22] MEDS ORDERED: ONDANSETRON INJ 2 MG/ML 2 ML VIAL IV PRN (10:51)
--- NOTE | 2022-08-22 12:20 | Hospitalist Progress Note ---
Date of Service August 22, 2022 Assessment & Plan (1) Fracture of femoral neck, left: (2) Fall: Plan: per admitting service notes with addendum: - Admit to tele - Hip fracture order set completed - Ortho consulted- no plans for surgery today as last took eliquis 08/20 at 7 pm. Hold for at least 24 hours. Likely surgical procedure tomorrow - await final decision per ortho team. Appreciate recs. - Allow diet today and make NPO at midnight - PT/OT - Imaging was reviewed with the patient and her daughter at bedside. - Allow ativan for anxiety, can order baclofen for muscle spasms prn - Pain control with Tylenol [id number], morphine sulfate IV for shante akthrough pain, bowel regimen ordered 08/22 no medical contraindication to proceed with planned orthopedic surgery- screw placement patient moderate - high risk for cardiopulmonary complications perioperatively due to age, comorbidities (3) DMII (diabetes mellitus, type 2): Plan: - Hold metformin - Check A1C: 10 - ISS with accuchecks achs (4) Paroxysmal A-fib: Plan: - Chronic, holding Eliquis - continue Metoprolol DVT ppx: - teds, scds CODE: Full code Dispo: pending will need Acute Rehab/SNF Admission and Anticipated Discharge Date Admission Date: August 21, 2022 Subjective ff up for L hip fracture, etc seen resting in bed, sitting up comfortable, not in distress states she feels fine overall minimal L hip discomfort no chest pain, dyspnea, palpitations, dizziness no other pain no other symptoms Review of Systems Review of Systems: all noted and negative except for above Physical Exam Physical Exam: General- oriented x 3, not in distress, speaks in sentences with no effort or accessory muscle use Eyes- anicteric Neck- no JVD Lungs- clear breath bilaterally, no rales/wheezes Heart- normal rate, regular rhythm; no murmurs Abdomen- normal bowel sounds, nondistended, soft, nontender Extremities- no pretibial edema, no calf tenderness mild L hip edema Neuro- alert, oriented x 3; no gross focal neurologic deficits Skin- warm & dry Results & Data Results & Data ([facility] Vital Signs (Past 12 Hours) Vital Signs Temp Pulse Pulse Resp BP Pulse Ox Pulse Ox 08/22/22 11:00 36.1 C L 63 20 132/70 98 08/22/22 07:50 08/22/22 08:40 36.7 C 102 H 20 110/65 96 08/22/22 06:00 79 08/22/22 05:00 96 08/22/22 03:20 36.9 C 75 16 104/57 L 95 08/22/22 01:00 95 O2 Del Method O2 Del Method O2 Flow Rate O2 Flow Rate 08/22/22 11:00 Nasal Cannula 1 08/22/22 07:50 Nasal Cannula 1 08/22/22 08:40 Nasal Cannula 1 08/22/22 06:00 08/22/22 05:00 Nasal Cannula 1 08/22/22 03:20 Nasal Cannula 1 08/22/22 01:00 Nasal Cannula 1 all noted and reviewed including below
[2022-08-22] MEDS ORDERED: LIDOCAINE 2% MPF LOCAL 5 ML VIAL INFIL ONE (12:47)
[2022-08-22] MEDS ORDERED: PROPOFOL IV EMULSION 10 MG/ML 20 ML VIAL IV ONE (12:47)
[2022-08-22] MEDS ORDERED: ONDANSETRON INJ 2 MG/ML 2 ML VIAL ONE (12:47)
[2022-08-22] MEDS ORDERED: DEXAMETHASONE SOD INJ 4 MG/ML VIAL ONE (12:47)
[2022-08-22] MEDS ORDERED: ePHEDrine sulfate 50 MG/ML AMP ONE (12:47)
[2022-08-22] MEDS ORDERED: PHENYLEPHRINE 100MCG/ML 5ML SYR ONE (12:47)
[2022-08-22] MEDS ORDERED: BUPIVACAINE 0.5 % 5 MG/1 ML MPF 30ML VIAL ONE (12:56)
--- NOTE | 2022-08-22 13:09 | Fluoroscopy Report ---
INTRAOPERATIVE RADIOGRAPHS CLINICAL HISTORY: Open reduction and internal fixation of the left proximal femur. Fluoro time: 62 seconds Exposure: 10.81 mGy FINDINGS: 2 spot fluoroscopic views of the left hip are compared to radiographs dated 08/21/2022. A can nulated screw is present in the intertrochanteric left femur transfixing an impacted subcapital fract ure. Near anatomic alignment is maintained. The orthopedic hardware appears intact. IMPRESSION: Intraoperative images from open reduction and internal fixation of the left proximal femu r as above. Electronically signed by: All Elmore M.D. 08/22/2022 1:06 PM
--- NOTE | 2022-08-22 13:19 | Post Operative Brief Note ---
Immediate Post Op Note v1 Date of Surgery August 22, 2022 Pre & Post Diagnosis Operation Date: 08/22/22 11:30 Pre-Op Diagnosis: Left Hip impacted femoral neck fracture Post-Op Diagnosis: Left Hip impacted femoral neck fracture I identified the patient and participated in the time-out.: Yes Procedure Operation Date: 08/22/22 11:30 Actual Procedures p Open Reduction Internal Fixation Left Hip with Synthes femoral neck system 1 hole plate antirotation screw 80 mm and 5.0 mm locking 40 mm screw (Left) - Alex Pena DO Surgeon Alex Pena DO Data Processor None Estimated Blood Loss 50 Findings Consistent with Post-Op Diagnosis Anesthesia Type General Regional Complications none Disposition Accompanied Patient To Recovery: No
--- NOTE | 2022-08-22 13:28 | Anesthesiology Progress Note ---
Date of Service August 22, 2022 Anesthesia Post Procedure Vital Signs Vital Signs: Temp Pulse Pulse Resp BP Pulse Ox Pulse Ox 08/22/22 11:00 97.0 F L 63 20 132/70 98 08/22/22 07:50 08/22/22 08:40 98.1 F 102 H 20 110/65 96 08/22/22 06:00 79 08/22/22 05:00 96 08/21/22 22:02 72 08/22/22 03:20 98.4 F 75 16 104/57 L 95 08/22/22 01:00 95 08/21/22 23:00 98.6 F 63 17 107/62 95 08/21/22 23:12 08/21/22 21:00 93 08/21/22 18:36 98.1 F 112 H 22 127/81 97 08/21/22 18:00 08/21/22 17:12 95 O2 Del Method O2 Del Method O2 Flow Rate O2 Flow Rate 08/22/22 11:00 Nasal Cannula 1 08/22/22 07:50 Nasal Cannula 1 08/22/22 08:40 Nasal Cannula 1 08/22/22 06:00 08/22/22 05:00 Nasal Cannula 1 08/21/22 22:02 08/22/22 03:20 Nasal Cannula 1 08/22/22 01:00 Nasal Cannula 1 08/21/22 23:00 Nasal Cannula 1 08/21/22 23:12 Room Air 1 08/21/22 21:00 Nasal Cannula 1 08/21/22 18:36 Nasal Cannula 2 08/21/22 18:00 Nasal Cannula 2 08/21/22 17:12 Nasal Cannula 2 Pain Intensity Left Hip: Pain Intensity: 2 Transfer of Care Handoff Completed per policy Notes Mental Status: alert / awake / arousable and participated in evaluation Patient Amnestic to Procedure: Yes Nausea / Vomiting: adequately controlled Pain: adequately controlled Airway Patency, RR, SpO2: stable & adequate BP & HR: stable & adequate Hydration State: stable & adequate Anesthetic Complications: no major complications apparent and Pt Satisfied with anesthetic care
--- NOTE | 2022-08-22 13:51 | XRay Report ---
XR hip 1V LT w pelvis CLINICAL HISTORY: Postoperative COMPARISON: Left femur radiographs and CT of the left hip August 31, 2022. FINDINGS: Fluoroscopy was provided during open reduction and internal fixation of the impacted left femoral neck fracture. No unexpected radiopaque foreign bodies are present. There are skin titi. IMPRESSION: Expected findings following open reduction and internal fixation of the impacted left fem oral neck fracture. ACT 112: Negative or not required by law. Electronically signed by: Stan Buckley M.D. 08/22/2022 1:50 PM
[2022-08-22] MEDS: CLINDAMYCIN/D5W 300 MG/50 ML BAG IV SCH (19:34)
--- NOTE | 2022-08-22 19:49 | Operative Report (OR) ---
DATE OF PROCEDURE: 08/22/2022. PREOPERATIVE DIAGNOSES: 1. Left hip impacted femoral neck fracture. 2. Status post fall. POSTOPERATIVE DIAGNOSES: 1. Left hip impacted femoral neck fracture. 2. Status post fall. PROCEDURE: Open reduction and internal fixation of left hip impacted femoral neck fracture with a Synthes femoral neck system, one hole plate, anti-rotation screw 80 mm, and a 5.0 mm locking 40 mm screw. SURGEON: Alex Pena DO. DOOR OPENER: None. ANESTHESIA: General, regional. SPECIMENS: None. DRAINS: None. COMPLICATIONS: None. BLOOD LOSS: 50 mL. PERTINENT HISTORY: This is an 86-year-old female, who sustained a ground level fall. She had pain and inability to ambulate. She presented to [facility] and was noted to be on Eliquis. She was optimized for surgery while waiting for the anticoagulant to become less effective and the patient was then scheduled for surgery as indicated. All potential risks, benefits, complications, alternatives, rehab potential for incomplete relief of symptoms, need for further surgery, DVT, PE, , persistent pain, swelling, scarring, weakness, neurovascular injury, wound complications, hardware failure, nonunion, malunion, bone fracture were discussed with the patient and her family. The patient decided to proceed with the procedure as indicated. DESCRIPTION OF PROCEDURE: The patient was taken to the operative suite and placed supine on the operating room table. After review of the consent and identification of proper site, the patient was anesthetized, LMA was placed. The patient was then transferred to the fracture table. All bony prominences were properly padded and protected. The left leg was placed on the fracture table with a neutral traction to avoid displacement of the femoral neck fracture and then the right leg was placed in the well leg couch, abducted, and carefully externally rotated out of the field. Next, after appropriate positioning was confirmed and initial radiographs were obtained in AP and lateral projections, noting well aligned, valgus impacted left femoral neck fracture, then the patient's surgical site was then sterilely prepped and draped in usual fashion. After surgical timeout was performed, a 10-blade scalpel was used to make an incision proximally at the level of the inferior portion of the greater trochanter, extending distally. The incision was carefully deepened through skin and subcutaneous tissue with a 10-blade scalpel. Electrocautery was used to provide hemostasis. The soft tissue was then retracted using a house retractor and then a 10-blade scalpel was used to incise the iliotibial band and the vastus lateralis down to the level of bone. Next, using the 3- point guide under live fluoroscopic assistance, the guide pin was placed in the junction between the central and inferior one-third of the femoral neck and head with the initial guide pin, leaving the tip approximately 5-7 mm from the subchondral bone on both AP and lateral projections. This was measured and then overdrilled to a depth of 80 mm and then the 80 mm bolt was then placed into the construct followed by application of the 1-hole plate. This was then rotationally aligned under live fluoroscopic assistance and the 40 mm locking screw was then measured and applied across the proximal shaft of the femur. This was then followed by placement of the anti-rotation screw also 80 mm. Construct was locked in place. Radiographs, AP and lateral projections noted stable alignment and fixation and the incision site was then copiously irrigated with sterile saline until clear. The vastus lateralis was then closed using #1 Vicryl. The iliotibial band was closed using #1 Vicryl. The dermis was closed using buried interrupted 2-0 Vicryl and the skin was closed using skin titi. The surgical site was then injected with 0.5% Marcaine plain, approximately 20 mL followed by application of a sterile compressive dressing. The patient was awakened and removed from the fracture table in no acute distress. She was then transferred to recovery in stable condition. Job ID: [id number] [facility]
[2022-08-22] MEDS: DOCUSATE SODIUM/SENNA 50/8.6MG TAB PO SCH (22:03)
[2022-08-23] MEDS: CLINDAMYCIN/D5W 300 MG/50 ML BAG IV SCH ×2 (02:51→12:16)
[2022-08-23] MEDS: LORazepam 0.5 MG TAB PO PRN (02:51)
[2022-08-23] MEDS: ACETAMINOPHEN 500 MG TAB PO SCH ×3 (06:20→22:13)
[2022-08-23] MEDS: METOPROLOL SUCC 25MG EXT REL TAB PO SCH (08:33)
[2022-08-23] MEDS: MAGNESIUM OXIDE 400 MG TAB PO SCH (08:37)
[2022-08-23] MEDS: INSULIN ASPART PER UNIT SC SCH ×4 (08:37→21:04)
[2022-08-23] MEDS: bisacodyL 5 MG TABEC PO SCH (08:37)
[2022-08-23] MEDS: POLYETHYLENE (MIRALAX) 17 GM PACK PO SCH (08:42)
[2022-08-23 09:56] LABS: Basophils # (auto) 0.04 K/uL (0-0.2); Basophils % (auto) 0.3 %; Eosinophils # (auto) 0.04 K/uL (0-0.50); Eosinophils % (auto) 0.3 %; Hematocrit (blood only) 36.8 % (37.0-47.0); Hemoglobin 12.6 g/dl (12.0-16.0); Immature Granulocytes # (auto) 0.07 K/uL (0.01-0.20); Immature Granulocytes % (auto) 0.5 %; Lymphocytes # (auto) 2.04 K/uL (1.2-3.4); Lymphocytes % (auto) 15.2 %; Mean Corpuscular Hgb Conc 34.2 g/dL (32.0-36.0); Mean Corpuscular Volume 84.8 fL (80.0-100.0); Mean Platelet Volume 10.1 fL (9.4-12.4); Monocytes # (auto) 1.32 K/uL (0.11-0.59); Monocytes % (auto) 9.8 %; Neutrophils # (auto) 9.95 K/uL (1.40-6.50); Neutrophils % (auto) 73.9 %; Platelet Count 307 K/uL (130-400); RDW Standard Deviation 43.5 fL (36.4-46.3); Red Blood Count 4.34 M/uL (4.20-5.40); White Blood Count 13.46 K/ul (4.8-10.8)
[2022-08-23 10:18] LABS: BUN Creatinine Ratio 18.1 (10-20); Calcium 8.5 mg/dl (8.5-10.1); Creatinine Clr Calc Pharmacy 43.9 ml/min; Potassium 4.1 mmol/L (3.5-5.1)
--- NOTE | 2022-08-23 11:46 | Orthopedic Progress Note ---
Date of Service August 23, 2022 Assessment & Plan (1) Fracture of femoral neck, left, closed: Plan: Postop day #1 continue Eliquis 1 daily. Ice to left hip. Continue PT/OT toe-touch weightbearing left lower extremity with walker and assist x1. Continue VTE prophylaxis. (2) Anticoagulant long-term use: (3) Fall: Admission and Anticipated Discharge Date Admission Date: August 21, 2022 Subjective ff up for L hip fracture, etc seen resting in bedside chair, sitting up comfortable, no distress Patient completed physical therapy earlier this morning and did well. states she feels fine overall minimal L hip discomfort no chest pain, dyspnea, palpitations, dizziness no other pain no other symptoms Physical Exam Physical Exam: Patient sitting supine in bedside chair. Dressing intact. No strikethrough. Leg lengths are equal. Distal neurovascular status is intact. Pedal pulses palpable. No evidence of foot drop or weakness bilateral lower extremities. Calves are soft. Nontender. Results & Data ([facility]) Vital Signs (Past 12 Hours) Vital Signs Temp Pulse Pulse Pulse Resp BP Pulse Ox 08/23/22 11:08 08/23/22 08:00 08/23/22 07:30 36.6 C 67 18 130/70 95 08/23/22 05:00 08/23/22 02:41 36.7 C 62 19 100/63 98 08/23/22 00:00 62 08/23/22 01:00 Pulse Ox Pulse Ox O2 Del Method O2 Del Method O2 Flow Rate O2 Flow Rate 08/23/22 11:08 94 08/23/22 08:00 Room Air 1 08/23/22 07:30 Room Air 08/23/22 05:00 96 Nasal Cannula 1 08/23/22 02:41 Nasal Cannula 3 08/23/22 00:00 08/23/22 01:00 98 Nasal Cannula 2
--- NOTE | 2022-08-23 18:08 | Hospitalist Progress Note ---
Date of Service August 23, 2022 Assessment & Plan (1) Fracture of femoral neck, left: (2) Fall: Plan: per admitting service notes with addendum: - Admit to tele - Hip fracture order set completed - Ortho consulted- no plans for surgery today as last took eliquis 08/20 at 7 pm. Hold for at least 24 hours. Likely surgical procedure tomorrow - await final decision per ortho team. Appreciate recs. - Allow diet today and make NPO at midnight - PT/OT - Imaging was reviewed with the patient and her daughter at bedside. - Allow ativan for anxiety, can order baclofen for muscle spasms prn - Pain control with Tylenol [id number], morphine sulfate IV for shante akthrough pain, bowel regimen ordered 08/22 no medical contraindication to proceed with planned orthopedic surgery- screw placement patient moderate - high risk for cardiopulmonary complications perioperatively due to age, comorbidities 08/23 Stable overall Pain control PT and OT evaluation Monitor closely (3) DMII (diabetes mellitus, type 2): Plan: - Hold metformin - Check A1C: 10 - ISS with accucheckaliza brock BSG 211 We will consult pharmacy glycemic service (4) Paroxysmal A-fib: Plan: - Chronic -Resume Eliquis today Okay with Ortho - continue Metoprolol DVT ppx: -Eliquis twice daily, for chronic A-fib CODE: Full code Dispo: pending will need Acute Rehab/SNF Admission and Anticipated Discharge Date Admission Date: August 21, 2022 Subjective Follow-up for left hip surgery, etc. Seen sitting up in bed, comfortable, not in distress, in good spirits States she feels good overall Minimal left hip discomfort No shortness of breath, palpitations, dizziness, chest pain No other symptoms Review of Systems Review of Systems: all noted and negative except for above Physical Exam Physical Exam: General- oriented x2, not in distress, speaks in sentences with no effort or accessory muscle use Eyes- anicteric Neck- no JVD Lungs- clear breath sounds bilaterally, no rales/wheezes Heart- normal rate, regular rhythm; no murmurs Abdomen- normal bowel sounds, nondistended, soft, nontender Extremities- no pretibial edema, no calf tenderness Left hip-minimal edema, dressing in place Neuro- alert, oriented x 2; no gross focal neurologic deficits Skin- warm & dry Results & Data Results & Data ([facility]) Vital Signs (Past 12 Hours) Vital Signs Temp Pulse Resp BP Pulse Ox Pulse Ox O2 Del Method 08/23/22 16:00 36.6 C 67 18 130/66 94 Room Air 08/23/22 12:00 36.8 C 63 18 127/66 94 Room Air 08/23/22 11:08 94 08/23/22 08:00 Room Air 08/23/22 07:30 36.6 C 67 18 130/70 95 Room Air O2 Flow Rate 08/23/22 16:00 08/23/22 12:00 08/23/22 11:08 08/23/22 08:00 1 08/23/22 07:30 all noted and reviewed including below
[2022-08-23] MEDS ORDERED: PHARMACY GLYCEMIC MGMT CONSULT PRN (19:28)
[2022-08-23] MEDS ORDERED: LANTUS PER UNIT CHARGE SQ STA (21:20)
[2022-08-23] MEDS: DOCUSATE SODIUM/SENNA 50/8.6MG TAB PO SCH (22:13)
[2022-08-23] MEDS: APIXABAN 5 MG TABLET PO SCH (22:14)
[2022-08-24] MEDS: INSULIN ASPART PER UNIT SC SCH ×6 (00:10→21:50)
[2022-08-24] MEDS: ACETAMINOPHEN 500 MG TAB PO SCH ×3 (06:16→22:01)
--- NOTE | 2022-08-24 07:56 | Pharmacy Report ---
Pharmacy Glycemic Short Note 2 - Date of Service August 24, 2022 - Glycemic Short BSG Results (Last 24 hours): 08/23/22 08/23/22 08/23/22 09:24 11:42 16:27 Glucose 316 H* POC Glucose 258 H 211 H 08/23/22 08/23/22 08/24/22 20:06 23:24 03:54 Glucose POC Glucose 291 H 239 H 110 H 08/24/22 07:31 Glucose POC Glucose 140 H OUTPATIENT ANTIDIABETIC REGIMEN: * Metformin 500mg PO BID * A1c 10% 08/22/22 ASSESSMENT: * 86 year old female, POD2, left hip fx. Hyperglycemic d/t insufficient insulin. Pt managed on only metformin at home, uncontrolled, A1c 10% * Basal started last night at 20 units of insulin glargine, BSG at goal this AM, then escalated above goal at lunchtime * Increase basal now, tighten CF and CR if BSG still above goal tomorrow PLAN FOR INPATIENT GLYCEMIC CONTROL: * Hold outpatient oral diabetes medications * Basal insulin * Lantus 10-20 units SQ BID (10 units for BSG < 110, 20 units for BSG 110 or greater) * Bolus insulin * NovoLog per scale ACHS or Q6hrs while NPO * Goal Range: Low 110 mg/dL - High 140 mg/dL * Correction Factor: 25 mg/dL/unit * Nutritional / Prandial insulin per carb ratio of 1 unit per 8 grams CHO consumed
[2022-08-24] MEDS: METOPROLOL SUCC 25MG EXT REL TAB PO SCH (08:05)
[2022-08-24] MEDS: bisacodyL 5 MG TABEC PO SCH (08:05)
[2022-08-24] MEDS: APIXABAN 5 MG TABLET PO SCH ×2 (08:06→20:31)
[2022-08-24] MEDS: MAGNESIUM OXIDE 400 MG TAB PO SCH (08:06)
[2022-08-24] MEDS: POLYETHYLENE (MIRALAX) 17 GM PACK PO SCH (08:06)
--- NOTE | 2022-08-24 11:30 | Orthopedic Progress Note ---
Date of Service August 24, 2022 Assessment & Plan (1) Fracture of femoral neck, left, closed: Plan: Postop day #2 continue Eliquis 1 daily. Ice to left hip. Continue PT/OT toe-touch weightbearing left lower extremity with walker and assist x1. Continue VTE prophylaxis with Eliquis per Medicine Dept. Plan for D/C to SNF/Rehab per D/C planning dept. (2) Anticoagulant long-term use: (3) Fall: Admission and Anticipated Discharge Date Admission Date: August 21, 2022 Subjective Seen sitting up in chair, comfortable, no distress States she feels ok Minimal left hip discomfort No shortness of breath, palpitations, dizziness, chest pain No other symptoms Physical Exam Physical Exam: Patient sitting supine in bedside chair. Dressing intact. No strikethrough. Leg lengths are equal. Distal neurovascular status is intact. Pedal pulses palpable. No evidence of foot drop or weakness bilateral lower extremities. Calves are soft. Nontender. Results & Data ([facility]) Vital Signs (Past 12 Hours) Vital Signs Temp Pulse Pulse Resp BP Pulse Ox Pulse Ox 08/24/22 08:00 08/24/22 09:00 90 08/24/22 07:30 36.9 C 67 18 141/71 H 94 08/24/22 01:00 08/24/22 02:38 36.4 C L 66 18 130/73 95 08/24/22 00:00 64 O2 Del Method O2 Del Method 08/24/22 08:00 Room Air 08/24/22 09:00 Room Air 08/24/22 07:30 Room Air 08/24/22 01:00 Room Air 08/24/22 02:38 Room Air 08/24/22 00:00
[2022-08-24] MEDS: LANTUS PER UNIT CHARGE SQ SCH ×2 (11:57→22:00)
--- NOTE | 2022-08-24 15:22 | Hospitalist Progress Note ---
Date of Service August 24, 2022 Assessment & Plan (1) Fracture of femoral neck, left: (2) Fall: Plan: per admitting service notes with addendum: - Admit to tele - Hip fracture order set completed - Ortho consulted- no plans for surgery today as last took eliquis 08/20 at 7 pm. Hold for at least 24 hours. Likely surgical procedure tomorrow - await final decision per ortho team. Appreciate recs. - Allow diet today and make NPO at midnight - PT/OT - Imaging was reviewed with the patient and her daughter at bedside. - Allow ativan for anxiety, can order baclofen for muscle spasms prn - Pain control with Tylenol [id number], morphine sulfate IV for shante akthrough pain, bowel regimen ordered 08/22 no medical contraindication to proceed with planned orthopedic surgery- screw placement patient moderate - high risk for cardiopulmonary complications perioperatively due to age, comorbidities 08/23 Stable overall Pain control PT and OT evaluation Monitor closely 08/24 Remained stable Pain well controlled PT and OT evaluation in progress Usual Eliquis resumed (3) DMII (diabetes mellitus, type 2): Plan: - Hold metformin - Check A1C: 10 - ISS with accuchecks achs BSG 110-140 consulted pharmacy glycemic service (4) Paroxysmal A-fib: Plan: - Chronic -Eliquis resumed - continue Metoprolol DVT ppx: -Eliquis twice daily, for chronic A-fib CODE: Full code Dispo: pending will need Acute Rehab/SNF Admission and Anticipated Discharge Date Admission Date: August 21, 2022 Subjective Follow-up for left hip fracture, status post surgery, etc. Seen resting in bedside chair, comfortable, not in distress Good spirits States she feels fine overall Minimal discomfort left hip, no leg pain no chest pain, dyspnea, palpitations, dizziness Appetite is good No other symptoms Review of Systems Review of Systems: all noted and negative except for above Physical Exam Physical Exam: General- oriented x 3, not in distress, speaks in sentences with no effort or accessory muscle use Eyes- anicteric Neck- no JVD Lungs- clear breath sounds, no crackles or wheezing bilaterally Heart- normal rate, regular rhythm; no murmurs Abdomen- normal bowel sounds, nondistended, soft, nontender Extremities- no pretibial edema, no calf tenderness Left hip-mild edema, no hematoma/warmth/tenderness Neuro- alert, oriented x 3; no gross focal neurologic deficits Skin- warm & dry Results & Data Results & Data ([facility]) Vital Signs (Past 12 Hours) Vital Signs Temp Pulse Resp BP Pulse Ox Pulse Ox O2 Del Method 08/24/22 13:00 90 08/24/22 11:25 36.8 C 67 18 148/65 H 94 Room Air 08/24/22 08:00 Room Air 08/24/22 09:00 90 08/24/22 07:30 36.9 C 67 18 141/71 H 94 Room Air O2 Del Method 08/24/22 13:00 Room Air 08/24/22 11:25 08/24/22 08:00 08/24/22 09:00 Room Air 08/24/22 07:30 all noted and reviewed including below
[2022-08-24] MEDS: traMADol HCL 50 MG TABLET PO PRN (16:51)
[2022-08-24] MEDS: DOCUSATE SODIUM/SENNA 50/8.6MG TAB PO SCH (20:33)
[2022-08-25] MEDS: traMADol HCL 50 MG TABLET PO PRN ×2 (02:58→11:15)
[2022-08-25] MEDS: ACETAMINOPHEN 500 MG TAB PO SCH ×2 (06:12→15:22)
[2022-08-25] MEDS: APIXABAN 5 MG TABLET PO SCH (08:31)
[2022-08-25] MEDS: METOPROLOL SUCC 25MG EXT REL TAB PO SCH (08:32)
[2022-08-25] MEDS: INSULIN ASPART PER UNIT SC SCH ×2 (09:01→13:12)
[2022-08-25] MEDS ORDERED: GLYCERIN ADULT 12 SUPP/BOX SUPP PR ONE (09:51)
[2022-08-25] MEDS ORDERED: DOCUSATE SODIUM 100 MG CAP PO STA (09:51)
[2022-08-25] MEDS ORDERED: MAGNESIUM HYDROXIDE SUSP 30 ML UDC PO ONE (10:10)
[2022-08-25] MEDS: POLYETHYLENE (MIRALAX) 17 GM PACK PO SCH (11:17)
[2022-08-25] MEDS: MAGNESIUM OXIDE 400 MG TAB PO SCH (12:20)
[2022-08-25] MEDS: bisacodyL 5 MG TABEC PO SCH (12:55)
--- NOTE | 2022-08-25 14:38 | Discharge Summary ---
Date of Service August 25, 2022 Admission HPI Per Admitting Provider This is an 86-year-old female with PMHx of DM type II, paroxysmal A-fib on eliquis, HTN, vitamin D deficiency, COPD mild, major depressive disorder and anxiety, who fell this morning while attempting to take out her garbage to the curb. She sustained a left femoral neck femur upon imaging review. She reports holding a trash container open and trying to place a small bag into it, while she was wearing slipper and thinks maybe she tripped. Denies syncope, dizziness or lightheadedness preceding the fall. She was on the ground for about an hour, and was wearing several layers. Her neighbor found her and helped her back into her home. Daughter was on her way and arrived right when she got into the house. Pt was unable to place weight on it. Last took Eliquis at 7 pm last night. She did not take any other medications this morning. Pain is currently well controlled and she has just been given some ativan for her anxiety and is very calm. Daughter supports the history and notes the pt is very independent and lives alone, does all ADLS herself. Does not use a walker at baseline. Admission Exam Per Admitting Provider General: awake, alert, no apparent distress Head: Normocephalic, atraumatic ENT: PERRL, EOMI, no pharyngeal exudate, mucous membranes dry Chest: Clear to auscultation, on room air, no adventitious breath sounds Cardiac: Irregularly irregular, rate controlled, soft systolic murmur, no JVD, normal peripheral pulses, good capillary refill Abdominal: NABS x 4 quadrants, soft, nondistended, nontender to palpation, no rebound or guarding Extremities: Normal inspection, no peripheral edema or erythema, calfs nontender to palpation Psych: Normal mood and affect Neuro: AAO x 3, strength intact bilaterally and rated 5/5, no motor deficits, speech is clear, no peripheral sensory deficits Principal Diagnosis Left femoral neck fracture Discharge Exam Constitutional WD/WN, vitals as above Respiratory normal respiratory effort, lungs clear to auscultation Cardiovascular Rate/Rhythm: regular rate and regular rhythm Vessels: normal peripheral pulses Extremities: no edema Gastrointestinal (Abdomen) Percussion/Palpation: abdomen soft; abdomen nontender Musculoskeletal S/p left hip surgery, dressing CDI, CSM checks intact to LLE Skin no rashes, warm and dry Neurologic no focal motor deficits Psychiatric A+Ox3, euthymic affect Discharge Data Allergies Allergy/AdvReac Type Severity Reaction Status Date / Time latex Allergy Mild Rash Verified 08/21/22 22:43 Penicillins Allergy Unknown CAN'T Verified 05/11/22 01:33 REMEMBER prednisone AdvReac Intermediate irritabilit Verified 05/11/22 01:33 y Consultations 08/21/22 10:23 Consult Orthopedic Surgery Routine Procedures Performed Operation Date: 08/22/22 11:30 Actual Procedures p Open Reduction Internal Fixation Left Hip(Left) - Alex Pena, Ordered Studies Laboratory Results WBC 13.46 K/ul (4.8-10.8) H 08/23/22 09:24 RBC 4.34 M/uL (4.20-5.40) 08/23/22 09:24 Hgb 12.6 g/dl (12.0-16.0) 08/23/22 09:24 Hct 36.8 % (37.0-47.0) L 08/23/22 09:24 MCV 84.8 fL (80.0-100.0) 08/23/22 09:24 MCH 29.0 pg (25.0-34.0) 08/23/22 09:24 MCHC 34.2 g/dL (32.0-36.0) 08/23/22 09:24 RDW Std Deviation 43.5 fL (36.4-46.3) 08/23/22 09:24 RDW Coeff of Shilpa 14.0 % (11.5-14.5) 08/23/22 09:24 Plt Count 307 K/uL (130-400) 08/23/22 09:24 MPV 10.1 fL (9.4-12.4) 08/23/22 09:24 Immature Gran % (Auto) 0.5 % 08/23/22 09:24 Neut % (Auto) 73.9 % 08/23/22 09:24 Lymph % (Auto) 15.2 % 08/23/22 09:24 [place] % (Auto) 9.8 % 08/23/22 09:24 Eos % (Auto) 0.3 % 08/23/22 09:24 Baso % (Auto) 0.3 % 08/23/22 09:24 Neut # (Auto) 9.95 K/uL (1.40-6.50) H 08/23/22 09:24 Lymph # (Auto) 2.04 K/uL (1.2-3.4) 08/23/22 09:24 [place] # (Auto) 1.32 K/uL (0.11-0.59) H 08/23/22 09:24 Eos # (Auto) 0.04 K/uL (0-0.50) 08/23/22 09:24 Baso # (Auto) 0.04 K/uL (0-0.2) 08/23/22 09:24 Immature Gran # (Auto) 0.07 K/uL (0.01-0.20) 08/23/22 09:24 PT 10.5 Seconds (9.0-12.0) 08/21/22 08:30 INR 1.0 (0.9-1.1) 08/21/22 08:30 APTT 24.8 Seconds (21.0-31.0) 08/21/22 08:30 PTT Ratio 0.9 08/21/22 08:30 Sodium 131 mmol/L (136-145) L 08/23/22 09:24 Potassium 4.1 mmol/L (3.5-5.1) 08/23/22 09:24 Chloride 98 mmol/L (98-107) 08/23/22 09:24 Carbon Dioxide 27 mmol/L (21-32) 08/23/22 09:24 Anion Gap 6 (3-11) 08/23/22 09:24 BUN 15 mg/dl (6-23) 08/23/22 09:24 Creatinine 0.83 mg/dl (0.6-1.2) 08/23/22 09:24 Est Cr Clr Drug Dosing 43.9 ml/min 08/23/22 09:24 Est GFR ( Amer) 73.0 ml/min 08/23/22 09:24 Est GFR (Non-Af Amer) 63.0 ml/min 08/23/22 09:24 BUN/Creatinine Ratio 18.1 (10-20) 08/23/22 09:24 Glucose 316 mg/dl (70-99(Fasting)) H* 08/23/22 09:24 POC Glucose 152 mg/dl (70-99) H 08/25/22 12:20 Estimat Average Glucose 240 mg/dl 08/22/22 05:43 Hemoglobin A1c 10.0 % (4.5-5.6) H 08/22/22 05:43 Calcium 8.5 mg/dl (8.5-10.1) 08/23/22 09:24 Magnesium 1.6 mg/dl (1.7-2.4) L 08/21/22 08:30 Total Bilirubin 0.6 mg/dl (0.2-1.0) 08/21/22 08:30 Direct Bilirubin 0.0 mg/dl (0-0.2) 08/21/22 08:30 AST 17 U/L (13-39) 08/21/22 08:30 ALT 13 U/L (7-52) 08/21/22 08:30 Alkaline Phosphatase 79 U/L (34-104) 08/21/22 08:30 Total Creatine Kinase 81 U/L (26-192) 08/21/22 08:30 Troponin I High Sens 55.8 pg/ml (0-14) H* D 08/21/22 13:16 Total Protein 7.3 gm/dl (6.0-8.3) 08/21/22 08:30 Albumin 4.0 gm/dl (3.4-5.0) 08/21/22 08:30 Urine Color Yellow 08/21/22 08:39 Urine Appearance Clear (Clear) 08/21/22 08:39 Urine pH 6.0 (4.5-7.5) 08/21/22 08:39 Ur Specific [place] 1.013 (1.000-1.030) 08/21/22 08:39 Urine Protein Negative (Negative) 08/21/22 08:39 Urine Glucose (UA) 3+ (Negative) H 08/21/22 08:39 Urine Ketones Trace (Negative) H 08/21/22 08:39 Urine Blood Negative (Negative) 08/21/22 08:39 Urine Nitrite Negative (Negative) 08/21/22 08:39 Urine Bilirubin Negative (Negative) 08/21/22 08:39 Urine Urobilinogen Negative (Negative) 08/21/22 08:39 Ur Leukocyte Esterase Negative (Negative) 08/21/22 08:39 SARS-CoV-2 (PCR) NEGATIVE (Negative) 08/21/22 09:40 Influenza Type A (PCR) Negative (Neg) 08/21/22 09:40 Influenza Type B (PCR) Negative (Neg) 08/21/22 09:40 RSV (RT-PCR) Negative (Neg) 08/21/22 09:40 Blood Type O Positive 08/21/22 13:16 Antibody Screen NEGATIVE 08/21/22 13:16 Impressions Chest X-Ray 08/21/22 08:21 XR chest 1V not portable CLINICAL HISTORY: trauma COMPARISON STUDY: Chest CT November 15, 2008. Chest radiograph May 12, 2022. FINDINGS: There is no pneumothorax or pleural effusion. Large hiatal hernia is again noted. Cardiomediastinal silhouette is stable. There are no airspace opacities. There is no evidence for pulmonary edema. Several old right-sided rib fractures are present. IMPRESSION: No acute cardiopulmonary findings. No significant change in appearance of the chest. ACT 112: Negative or not required by law. Electronically signed by: Stan Buckley M.D. 08/21/2022 9:37 AM Femur X-Ray 08/21/22 08:21 XR pelvis 1-2V routine, XR femur LT 2V routine HISTORY: 86 years-old Female trauma acute pain of the left pelvis and hip status post fall COMPARISON: CT abdomen and pelvis 02/22/2021 TECHNIQUE: AP view of the pelvis with 2 views of the left femur FINDINGS: PELVIS: Mild to moderate osteoarthritis of the hips. Demineralized appearance of the bones. Degenerative changes of the lower lumbar spine. Arterial calcifications. Foreshortening of the left femoral neck. No dislocation. LEFT femur: Demineralized appearance the bones. There is an acute slightly impacted nondisplaced transcervical fracture. Osteoarthritis of the knee. Mild to moderate left hip osteoarthritis. No dislocation or avascular necrosis. IMPRESSION: Acute nondisplaced slightly impacted transcervical fracture of the left femur. ACT 112: Negative or not required by law. The above report was generated using voice recognition software. It may contain grammatical, syntax or spelling errors. Electronically signed by: Amilcar Morris M.D. 08/21/2022 9:[address] 08/21/22 08:21 CT OF THE HEAD WITHOUT CONTRAST CLINICAL HISTORY: Trauma. COMPARISON STUDY: Head CT November 15, 2008. CT DOSE: 1277.12 mGycm TECHNIQUE: Helical axial images of the head were obtained without IV contrast. Automated exposure control was utilized for the study. A dose lowering technique was utilized adhering to the principles of ALARA. FINDINGS: No acute intracranial hemorrhage, midline shift or mass effect is present. White matter hypodensities have progressed since prior CT. These favor small vessel disease. The ventricular system is unremarkable. The basal cisterns are patent. No extra-axial collections are present. There are no findings to suggest acute dural sinus thrombosis or acute territorial infarct. No significant calvarial abnormalities are present. Visualized portions of the s inuses and mastoid air cells are clear. IMPRESSION: 1. No acute intracranial findings. 2. No acute calvarial fracture. ACT 112: Negative or not required by law. Electronically signed by: Stan Buckley M.D. 08/21/2022 10:08 AM Pelvis X-Ray 08/21/22 08:21 XR pelvis 1-2V routine, XR femur LT 2V routine HISTORY: 86 years-old Female trauma acute pain of the left pelvis and hip status post fall COMPARISON: CT abdomen and pelvis 02/22/2021 TECHNIQUE: AP view of the pelvis with 2 views of the left femur FINDINGS: PELVIS: Mild to moderate osteoarthritis of the hips. Demineralized appearance of the bones. Degenerative changes of the lower lumbar spine. Arterial calcifications. Foreshortening of the left femoral neck. No dislocation. LEFT femur: Demineralized appearance the bones. There is an acute slightly impacted nondisplaced transcervical fracture. Osteoarthritis of the knee. Mild to moderate left hip osteoarthritis. No dislocation or avascular necrosis. IMPRESSION: Acute nondisplaced slightly impacted transcervical fracture of the left femur. ACT 112: Negative or not required by law. The above report was generated using voice recognition software. It may contain grammatical, syntax or spelling errors. Electronically signed by: Amilcar Morris M.D. 08/21/2022 9:[address] 08/21/22 10:08 CT hip LT wo con CLINICAL HISTORY: Left femoral neck fx, assess displacement preop plan COMPARISON STUDY: Pelvis and left hip radiographs performed earlier today. CT of the abdomen and pelvis March 12, 2021. TECHNIQUE: Axial images of the left hip were obtained without IV contrast. Sagittal and coronal reconstructions were viewed.Automated exposure control was utilized for the study. A dose lowering technique was utilized adhering to the principles of ALARA. FINDINGS: The bladder is collapsed, containing a Wang balloon. There is an acute impacted nondisplaced subcapital fracture of the left femoral neck. There is associated foreshortening of the femoral neck. No additional acute fractures are identified. There is no large adjacent hematoma. No osseous lesion is noted. There is mild joint space narrowing and moderate osteophytosis of the left hip. IMPRESSION: Acute impacted nondisplaced subcapital fracture of the left femoral neck. ACT 112: Negative or not required by law. Electronically signed by: Stan Buckley M.D. 08/21/2022 10:47 AM Hip X-Ray 08/22/22 00:00 INTRAOPERATIVE RADIOGRAPHS CLINICAL HISTORY: Open reduction and internal fixation of the left proximal femur. Fluoro time: 62 seconds Exposure: 10.81 mGy FINDINGS: 2 spot fluoroscopic views of the left hip are compared to radiographs dated 08/21/2022. A cannulated screw is present in the intertrochanteric left femur transfixing an impacted subcapital fracture. Near anatomic alignment is maintained. The orthopedic hardware appears intact. IMPRESSION: Intraoperative images from open reduction and internal fixation of the left proximal femur as above. Electronically signed by: All Elmore M.D. 08/22/2022 1:06 PM Hip/Pelvis X-Ray 08/22/22 13:26 XR hip 1V LT w pelvis CLINICAL HISTORY: Postoperative COMPARISON: Left femur radiographs and CT of the left hip August 31, 2022. FINDINGS: Fluoroscopy was provided during open reduction and internal fixation of the impacted left femoral neck fracture. No unexpected radiopaque foreign bodies are present. There are skin kelsey. IMPRESSION: Expected findings following open reduction and internal fixation of the impacted left femoral neck fracture. ACT 112: Negative or not required by law. Electronically signed by: Stan Buckley M.D. 08/22/2022 1:50 PM Hospital Course (1) Fracture of femoral neck, left: (2) Fall: Patient presented on 08/21 after a mechanical fall and was found to have a left femoral neck fracture. S/p left hip ORIF by Dr. Pena on 08/22/2022 Home Eliquis resumed Continue pain control with bowel regimen Patient to maintain toe-touch weightbearing with walker status for the next 6 weeks. Jackson to be removed on 09/05. (3) DMII (diabetes mellitus, type 2): Hgb A1c 10.0 Home metformin held during admission and patient received NovoLog and Lantus per protocol Resume metformin at discharge, further glucose control per [facility] (4) Paroxysmal A-fib: Rate controlled on metoprolol, anticoagulated on Eliquis Total Time Total Time Spent Total Time Spent (In Minutes): 40 Discharge Plan Discharge Items Patient Disposition: Transfer Inpatient Rehab Fac Reason For Visit: Fall, Left Hip Pain Discharge Diagnosis: Left femoral neck fracture Activity: As commented below Weightbearing: Left toe touch Weightbearing Comment: with walker Non-emergency contact: Primary Care Provider and Surgeon Call non-emergency contact if: you have any medication questions, your symptoms worsen, your pain is not controlled and you have a fever Follow-up/Referrals: Alex Pena DO [Surgeon] - (appt scheduled for 09/15/22. please call for time confirmation.) Lance Conklin MD [Primary Care Provider] - Diet: Carb Consistent or DM2 and Heart Healthy Addtl Attending Provider Instructions: Patient presented on 08/21 after a fall and left hip pain. Found to have left femoral neck fracture. S/p left hip ORIF on 08/[address] Pena. Patient is to be toe-touch weightbearing with walker for the next 6 weeks. Kelsey to be removed on 09/05/2022. Follow-up with Dr. Pena at [address] [place] [address] on 09/15/2022. Please call for time confirmation. Patient previously anticoagulated with Eliquis for history of paroxysmal atrial fibrillation. This is to be continued. Pending Studies at Discharge: No Stand-Alone Forms: My [facility] [employer] Skilled Items Patient informed of condition?: Yes DNR: No Discharge Level of Care: Acute rehab Communicable Disease: No Discharge Prognosis: Stable Lines: None Urinary Catheter: No Medications and DC Order Prescriptions: New polyethylene glycol 3350 [Miralax] 17 gram Powder In Packet 17 g PO BID Qty: 1 0RF tramadol 50 mg Tablet 50 mg PO Q6H PRN (Reason: pain) Qty: 1 0RF acetaminophen [Tylenol Extra Strength] 500 mg Tablet 1,000 mg PO Q8H Qty: 1 0RF sennosides-docusate sodium [Senokot-S] 8.6-50 mg Tablet 2 tab PO HS Qty: 1 0RF Continued lorazepam 0.5 mg tablet 0.5 mg PO TID PRN (Reason: Anxiety) Eliquis 5 mg Tablet 5 mg PO BID Qty: 60 0RF metformin 500 mg tablet 500 mg PO BIDWMEAL Qty: 60 0RF metoprolol succinate 25 mg tablet extended release 24 hr 25 mg PO QAM Discontinued cephalexin 500 mg Capsule 500 mg PO QID Qty: 20 0RF (DME) OneTouch Verio test strips Strip See Rx Instructions .Route Qty: 50 0RF Rx Instructions: test once daily (DME) lancets [OneTouch Delica Plus Lancet] 33 gauge misc See Rx Instructions .Route Qty: 100 0RF Rx Instructions: test once daily fluconazole 150 mg tablet 150 mg PO UD No Action bisacodyl [Laxative (bisacodyl)] 5 mg tablet,delayed release (DR/EC) 10 mg DAILY PRN (Reason: Constipation) Humulin R Regular U-100 Insuln 0 unit SC ACHS Rx Instructions: sliding scale Discharge Orders: Discharge Order (Routine); Ordered 08/25/22 Ordered By: Greta Hidalgo/Other Patient Handouts: Understanding Hip Fractures Admission Data Admit Date/Time: 08/21/22 10:23 Attending Provider: Jose Manuel Mason Admit Provider: Adriana Cunningham Primary Care Provider: Lance Conklin Other Providers: Harpreet Snyder ; Adriana Cunningham ; [facility] Supervising Physician Co-Signing Physician Notes delayed entry date of service noted above Attending Addendum: care coordinated with PENELOPE Meléndez please refer to her notes for full details, I agree with her notes patient seen and examined, records reviewed by myself as well on exam, patient seen resting in bedside chair, comfortable, not in distress In good spirits Left hip pain well controlled no chest pain, dyspnea, palpitations, dizziness no other symptoms VS noted and reviewed oriented , not in distress, speaks in sentences with no effort nor accessory muscle use normal rate, regular rhythm, no murmurs clear breath sounds bilaterally non distended, soft, nontender Left hip: Dressing in place, mild edema, no erythema/hematoma no bipedal edema, erythema, warmth no neuro deficits All labs ordered and reviewed ASSESSMENT AND PLAN other diagnoses and plan of care as per PENELOPE Meléndez's notes Jose Manuel Mason MD
[2022-08-25] MEDS: LORazepam 0.5 MG TAB PO PRN (15:23)
[2022-08-25] MEDS ORDERED: LANTUS PER UNIT CHARGE SQ SCH (21:00)
[2022-08-25] MEDS ORDERED: POLYETHYLENE (MIRALAX) 17 GM PACK PO SCH (21:00)
== END 2022-08-25 16:19 | DRG 481 ==
LOC: ED 08:16 → EDINP 10:23 → SUATTDRO 10:23 → 2E 12:48 → 3W 08-24 15:16
DX: Z88.0 Allergy status to penicillin; E11.9 Type 2 diabetes mellitus without complications; Y92.014 Private driveway to single-family (private) house as the place of occurrence of the external cause; W01.198A Fall on same level from slipping, tripping and stumbling with subsequent striking against other object, initial encounter; I10 Essential (primary) hypertension; I48.20 Chronic atrial fibrillation, unspecified; Y93.01 Activity, walking, marching and hiking; Z88.8 Allergy status to other drugs, medicaments and biological substances; S72.035A Nondisplaced midcervical fracture of left femur, initial encounter for closed fracture; F32.9 Major depressive disorder, single episode, unspecified; I48.0 Paroxysmal atrial fibrillation; E55.9 Vitamin D deficiency, unspecified; I24.8 Other forms of acute ischemic heart disease; J44.9 Chronic obstructive pulmonary disease, unspecified; S09.90XA Unspecified injury of head, initial encounter; Z79.84 Long term (current) use of oral hypoglycemic drugs

== ENCOUNTER 2022-08-26 05:06 | Inpatient (IN) ==
[2022-08-26] MEDS ORDERED: dilTIAZem HCl 5 MG/ML 5 ML VIAL IV STA (05:12)
[2022-08-26] MEDS ORDERED: STAT IV Infusion **Titration per Protocol STA (05:12)
[2022-08-26] MEDS ORDERED: dilTIAZem HCL 125 MG in DEXTROSE 5% 100 ML IV SCH (05:15)
--- NOTE | 2022-08-26 05:34 | Emergency Department Note ---
History of Present Illness General Chief complaint: Tachycardia Time Seen by Provider: 08/26/22 05:11 History of Present Illness 86-year-old female presents the emergency department states approximately 230 this morning she developed chest pain and increased heart rate. Patient is currently at [facility] as she is status post left hip surgery last week. Patient has a history of A-fib is on Eliquis. Patient was found to be in rapid A-fib with heart rate greater than 180 per EMS given 20 mg of IV Cardizem prehospital prior to arrival. Patient was also given aspirin prior to arrival. Patient currently denies any chest pain. Patient states that her heart rate is fast. Patient denies shortness of breath nausea vomiting abdominal pain or left hip pain. Home Medications Medication Instructions Recorded Confirmed Type lorazepam 0.5 mg tablet 0.5 mg PO TID PRN Anxiety 02/22/21 08/21/22 History apixaban 5 mg tablet (Eliquis) 5 mg PO BID #60 tabs 05/14/22 08/21/22 Rx magnesium oxide 400 mg (241.3 mg 400 mg PO QAM #30 tabs 05/14/22 08/21/22 Rx magnesium) tablet metformin 500 mg tablet 500 mg PO BIDWMEAL #60 tabs 05/14/22 08/21/22 Rx metoprolol succinate 25 mg 25 mg PO QAM 08/21/22 08/21/22 History tablet,extended release 24 hr acetaminophen 500 mg tablet 1,000 mg PO Q8H #1 tab 08/25/22 Rx (Tylenol Extra Strength) bisacodyl 5 mg tablet,delayed 5 mg PO DAILY #1 tab 08/25/22 Rx release (Gentle Laxative (bisacodyl)) polyethylene glycol 3350 17 gram 17 g PO BID #1 ea 08/25/22 Rx oral powder packet (Miralax) sennosides 8.6 mg-docusate sodium 2 tab PO HS #1 tab 08/25/22 Rx 50 mg tablet (Senokot-S) tramadol 50 mg tablet 50 mg PO Q6H PRN pain #1 tab 08/25/22 Rx Allergies Allergy/AdvReac Type Severity Reaction Status Date / Time latex Allergy Mild Rash Verified 08/21/22 22:43 Penicillins Allergy Unknown CAN'T Verified 05/11/22 01:33 REMEMBER prednisone AdvReac Intermediate irritabilit Verified 05/11/22 01:33 y Past Med/Surg History Medical History COPD (chronic obstructive pulmonary disease) (03/04/14) JOSE (generalized anxiety disorder) (03/04/14) History of diverticulosis Left leg DVT Lower GI bleed Surgical History H/O tubal ligation Family History Other Family history non-contributory Social History Smoking Status: Former smoker Hx Alcohol Use: No Hx Substance Use: No Preferred Language: Bahamian Communication Ability: Effective 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 Beliefs That Will Affect Care: None Current Living Situation: Alone Feels Safe at Home: Yes Assistive Devices: Cane Review of Systems A total of 10 systems reviewed and were otherwise negative Constitutional: no fever Cardiovascular: + chest pain and + palpitations Gastrointestinal: no abdominal pain Physical Exam Vital Signs Vital Signs - 24 hr 08/26/22 05:09 08/26/22 05:14 08/26/22 05:27 Temperature 37.1 C Temperature Source Oral Pulse Rate 117 H 166 H 127 H Pulse Rhythm Irregular Respiratory Rate 25 H 25 H Blood Pressure 114/81 Blood Pressure Mean 92 Pulse Oximetry 94 94 Oxygen Delivery Method Room Air Room Air Sepsis Recent Fever Within 48 Hours No Sepsis New/Unexplained Change in Mental Status No Sepsis Action Taken by Nursing Physician Notified 08/26/22 05:15 08/26/22 05:26 08/26/22 05:35 Temperature Temperature Source Pulse Rate 149 H 136 H 132 H Pulse Rhythm Respiratory Rate 18 20 18 Blood Pressure 114/81 103/77 104/78 Blood Pressure Mean 92 85 86 Pulse Oximetry 94 94 94 Oxygen Delivery Method Room Air Sepsis Recent Fever Within 48 Hours Sepsis New/Unexplained Change in Mental Status Sepsis Action Taken by Nursing 08/26/22 05:45 08/26/22 05:55 Temperature Temperature Source Pulse Rate 145 H 148 H Pulse Rhythm Respiratory Rate 18 20 Blood Pressure 104/82 113/89 Blood Pressure Mean 89 97 Pulse Oximetry 93 93 Oxygen Delivery Method Room Air Room Air Sepsis Recent Fever Within 48 Hours Sepsis New/Unexplained Change in Mental Status Sepsis Action Taken by Nursing GENERAL: Patient is awake alert in no acute distress patient is resting comfortably and showing no signs of anxiety EYES: The conjunctivae are clear. The pupils are round and reactive. EARS, NOSE, MOUTH AND THROAT: The nose is without any evidence of any deformity. Mucous membranes are moist. Tongue is midline. NECK: The neck is nontender and supple. RESPIRATORY: Normal respiratory effort is noted there is no evidence of wheezing rhonchi or rales CARDIOVASCULAR: Irregularly irregular tachycardic GASTROINTESTINAL: The abdomen is soft. Abdomen is nontender. PELVIS: The Pelvis is stable. No tenderness to palpation is noted. BACK: No midline tenderness or or step-off noted range of motion in flexion extension as well as rotation no signs of muscle spasm noted MUSCULOSKELETAL/EXTREMITIES: There is no evidence of gross deformity full range of motion is noted in the hips and shoulders. Left hip site that is bandaged that appears intact SKIN: There is no obvious evidence of any rash. There are no petechiae, pallor or cyanosis noted. NEUROLOGIC: Patient is awake alert and oriented x3 strength is symmetric Course Reevaluation(s) Reevaluation #1: Patient was started on an IV Cardizem drip after receiving IV Cardizem bolus. Patient is stable she is not hypotensive. [facility] Time: 06:06 Consultations Consultation #1: [facility] and [facility] the patient for admission for rapid atrial fibrillation Time: 06:06 Administered Medications Diltiazem HCl 125 mg/ Dextrose 125 mls @ 5 mls/hr IV .Q24H [facility]; Protocol Stop: 09/25/22 05:14 Last Titration: 08/26/22 05:55 Dose: 10 mg/hr, 10 mls/hr Documented By: LISSETTE Co-signed By: MARK Admin: 08/26/22 05:24 Dose: 5 mg/hr, 5 mls/hr Documented By: MARYAM Co-signed By: LISSETTE Discontinued Medications Diltiazem HCl (Diltiazem Hcl 5 Mg/Ml 5 Ml Vial) 25 mg IV NOW STA Stop: 08/26/22 05:13 Last Admin: 08/26/22 05:15 Dose: 25 mg Documented By: MARYAM Co-signed By: KML Miscellaneous (Stat Iv Infusion Titration Per Protocol) 1 each N/A NOW STA Stop: 08/26/22 05:13 Last Admin: 08/26/22 05:58 Dose: Not Given Documented By: KMBenji Critical Care Time Critical Care Time: Yes Total Critical Care Time: 40 I have personally spent greater than 40 minutes of critical care time in the direct management of this patient. This includes bedside care, interpretation of diagnostic studies, and testing, discussion with consultants, patient, and family members, and other required patient management activities. These minutes are in excess of all separately billable procedures. Medical Decision Making Medical Records Attestation: I reviewed the patient's medical records. Home Medications Current Medication List: was personally reviewed by me Laboratory Data Attestation: I reviewed the patient's lab results. 08/26/22 05:15 08/26/22 05:15 Lab Results 08/26/22 Range/Units 05:15 Magnesium Cancelled Imaging Data Attestation: I personally reviewed and interpreted this imaging study as follows: My Impression: Chest x-ray interpreted by me negative for infiltrate normal mediastinum ECG Data Attestation: I personally reviewed and interpreted this ECG as follows: Additional Comments: EKG interpreted by me rapid atrial fibrillation rate of [address]-T change normal axis Telemetry monitoring interpreted by me is rapid atrial fibrillation rate is variable from 1 35-1 45 MDM Narrative Medical decision making differential diagnosis includes rapid atrial fibrillation cardiac dysrhythmia metabolic derangement dehydration electrolyte abnormality acute coronary syndrome Plan is to check labs EKG, start IV Cardizem drip EMS records were reviewed by me I spoke with the EMS crew by medical command External medical records were reviewed in the patient's stay at [facility] Impression & Plan Atrial fibrillation with RVR Discharge Plan Visit Data Chief Complaint: Tachycardia ED Provider: Art Jeff Discharge Problem: Atrial fibrillation with RVR Patient Disposition: Admitted As Inpatient Forms Stand Alone Forms: My [facility] Prescriptions Prescriptions: No Action lorazepam 0.5 mg tablet 0.5 mg PO TID PRN (Reason: Anxiety) Eliquis 5 mg Tablet 5 mg PO BID Qty: 60 0RF magnesium oxide 400 mg (241.3 mg magnesium) Tablet 400 mg PO QAM Qty: 30 0RF metformin 500 mg tablet 500 mg PO BIDWMEAL Qty: 60 0RF metoprolol succinate 25 mg tablet extended release 24 hr 25 mg PO QAM polyethylene glycol 3350 [Miralax] 17 gram Powder In Packet 17 g PO BID Qty: 1 0RF tramadol 50 mg Tablet 50 mg PO Q6H PRN (Reason: pain) Qty: 1 0RF acetaminophen [Tylenol Extra Strength] 500 mg Tablet 1,000 mg PO Q8H Qty: 1 0RF bisacodyl [Gentle Laxative (bisacodyl)] 5 mg Tablet,Delayed Release (Dr/Ec) 5 mg PO DAILY Qty: 1 0RF sennosides-docusate sodium [Senokot-S] 8.6-50 mg Tablet 2 tab PO HS Qty: 1 0RF Referrals Referrals: Lance Conklin MD [Primary Care Provider] -
[2022-08-26] MEDS ORDERED: METOPROLOL SUCC 25MG EXT REL TAB PO STA (05:55)
[2022-08-26 06:12] LABS: Basophils # (auto) 0.05 K/uL (0-0.2); Basophils % (auto) 0.6 %; Eosinophils # (auto) 0.13 K/uL (0-0.50); Eosinophils % (auto) 1.5 %; Immature Granulocytes # (auto) 0.03 K/uL (0.01-0.20); Immature Granulocytes % (auto) 0.3 %; Lymphocytes # (auto) 1.97 K/uL (1.2-3.4); Lymphocytes % (auto) 22.2 %; Mean Corpuscular Hemoglobin 28.8 pg (25.0-34.0); Mean Corpuscular Hgb Conc 33.3 g/dL (32.0-36.0); Mean Corpuscular Volume 86.5 fL (80.0-100.0); Mean Platelet Volume 9.9 fL (9.4-12.4); Monocytes # (auto) 1.14 K/uL (0.11-0.59); Monocytes % (auto) 12.8 %; Neutrophils # (auto) 5.56 K/uL (1.40-6.50); Neutrophils % (auto) 62.6 %; Platelet Count 375 K/uL (130-400); RDW Coefficient of Variation 14.2 % (11.5-14.5); RDW Standard Deviation 44.8 fL (36.4-46.3); Red Blood Count 4.51 M/uL (4.20-5.40); White Blood Count 8.88 K/ul (4.8-10.8)
[2022-08-26 06:15] LABS: Alanine Aminotransferase 12 U/L (7-52); Albumin Globulin Ratio 1.1 (0.9-2); Albumin Level 3.3 gm/dl (3.4-5.0); Alkaline Phosphatase 69 U/L (34-104); Anion Gap 5 (3-11); Aspartate Aminotransferase 20 U/L (13-39); Bilirubin,Total 0.6 mg/dl (0.2-1.0); Blood Urea Nitrogen 11 mg/dl (6-23); Calcium 8.5 mg/dl (8.5-10.1); Carbon Dioxide 27 mmol/L (21-32); Chloride 105 mmol/L (98-107); Est GFR (African American) 93.8 ml/min; Est GFR (Non-African American) 80.9 ml/min; Glucose 155 mg/dl (70-99(Fasting)); Lipase 9 U/L (11-82); Magnesium 2.2 mg/dl (1.7-2.4); Potassium 4.2 mmol/L (3.5-5.1); Sodium 137 mmol/L (136-145); Total Protein 6.3 gm/dl (6.0-8.3)
[2022-08-26 06:21] LABS: Troponin I High Sensitivity 11.8 pg/ml (0-14)
[2022-08-26] MEDS ORDERED: SODIUM CHLORIDE 0.9% 1000ML 1,000 ML IV ONE (06:24)
[2022-08-26] MEDS ORDERED: DIGOXIN 500 MCG/2 ML AMP IV ONE (06:25)
--- NOTE | 2022-08-26 06:26 | History & Physical Report ---
Date of Service August 26, 2022 Assessment & Plan (1) Atrial fibrillation with RVR: Plan: Secondary to exertion post left femoral fracture surgery Patient on Eliquis. hx PVD asthma/COPD, stable hypertension, BP on the lower side DM2 on oral medications, suboptimal control as of recent hemoglobin A1c of 10 this month anxiety/mood disorder, patient slightly anxious PCU Titrate home beta-connor Digoxin 1 dose now given borderline BP Attempt to wean off Cardizem drip May may benefit from Cardiology eval if without response to above interventions Basal bolus insulin, ISS BG goal 1 10-1 40, carb count coverage DVT prophylaxis. Eliquis Full code Patient daughter requesting updates from providers. Ms. Mellisa Khoury, contact #[phone]. Text document was generated using [employer] voice recognition software. It may contain grammatical or spelling errors. Kindly contact undersigned for clarification of any documentation item in question. History of Present Illness Chief Complaint: Chest pain Primary Care Provider: Lance Conklin MD History obtained from patient, family, and records. Medical history significant for paroxysmal A-fib/unprovoked DVT on Eliquis, PVD, asthma/COPD, hypertension, DM2 on oral medications, anxiety/mood disorder. Patient admitted August 21 to 2022 for left femoral neck fracture status post surgery. Patient discharged to rehab facility yesterday. This morning, patient had trouble walking to the bathroom with assistance at rehab facility. Upon return to bed, patient experienced left-sided chest discomfort from heart thumping. No radiation, some shortness of breath, no cough symptoms. Heart rate up to 200s. Prehospital EKG showed rapid A-fib. Aspirin and Cardizem administered prior to hospital transfer. Patient currently comfortable. 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 Allergies Allergy/AdvReac Type Severity Reaction Status Date / Time latex Allergy Mild Rash Verified 08/21/22 22:43 Penicillins Allergy Unknown CAN'T Verified 05/11/22 01:33 REMEMBER prednisone AdvReac Intermediate irritabilit Verified 05/11/22 01:33 y Home Medications Medication Instructions Recorded Confirmed Type lorazepam 0.5 mg tablet 0.5 mg PO TID PRN Anxiety 02/22/21 08/26/22 History apixaban 5 mg tablet (Eliquis) 5 mg PO BID #60 tabs 05/14/22 08/26/22 Rx metformin 500 mg tablet 500 mg PO BIDWMEAL #60 tabs 05/14/22 08/26/22 Rx metoprolol succinate 25 mg 25 mg PO QAM 08/21/22 08/26/22 History tablet,extended release 24 hr acetaminophen 500 mg tablet 1,000 mg PO Q8H #1 tab 08/25/22 08/26/22 Rx (Tylenol Extra Strength) polyethylene glycol 3350 17 gram 17 g PO BID #1 ea 08/25/22 08/26/22 Rx oral powder packet (Miralax) sennosides 8.6 mg-docusate sodium 2 tab PO HS #1 tab 08/25/22 08/26/22 Rx 50 mg tablet (Senokot-S) tramadol 50 mg tablet 50 mg PO Q6H PRN pain #1 tab 08/25/22 08/26/22 Rx Humulin R Regular U-100 Insuln SC ACHS 08/26/22 History bisacodyl 5 mg tablet,delayed 10 mg DAILY PRN Constipation 08/26/22 08/26/22 History release (Laxative (bisacodyl)) Past Med/Surg History Medical History COPD (chronic obstructive pulmonary disease) (03/04/14) JOSE (generalized anxiety disorder) (03/04/14) History of diverticulosis Left leg DVT Lower GI bleed Surgical History H/O tubal ligation Family History Other Family history non-contributory Social History Smoking Status: Former smoker Hx Alcohol Use: No Hx Substance Use: No Preferred Language: Frisian Communication Ability: Effective Wind Operations Manager Required: No Beliefs That Will Affect Care: None Current Living Situation: Alone Feels Safe at Home: Yes Assistive Devices: Cane Review of Systems Review of Systems: As per HPI, all other systems reviewed and negative Physical Exam Physical Exam: GENERAL: Comfortable, slightly anxious, no respiratory distress SKIN: Normal color, warm HEENT: [place] palpebral conjunctivae, no ptosis, dry buccal mucosa NECK : Supple, no tenderness CHEST : CTA, no tenderness HEART : Tachycardic, irregular,, no obvious murmurs ABDOMEN: Some distention, nontender EXTREMITIES : No LE swelling, minimal left hip tenderness, no other conspicuous deformities noted NEUROLOGIC : Coherent, no facial asymmetry, no other gross focality Results & Data Results & Data ([facility]) Vital Signs (Past 12 Hours) Vital Signs Temp Pulse Resp BP Pulse Ox O2 Del Method 08/26/22 06:10 147 H 20 117/77 94 Room Air 08/26/22 06:00 150 H 20 100/78 95 Room Air 08/26/22 05:55 148 H 20 113/89 93 Room Air 08/26/22 05:45 145 H 18 104/82 93 Room Air 08/26/22 05:35 132 H 18 104/78 94 Room Air 08/26/22 05:26 136 H 20 103/77 94 08/26/22 05:15 149 H 18 114/81 94 08/26/22 05:27 127 H 25 H 94 Room Air 08/26/22 05:14 166 H 08/26/22 05:09 37.1 C 117 H 25 H 114/81 94 Room Air Laboratory Results Laboratory Results WBC 8.88 K/ul (4.8-10.8) 08/26/22 05:15 RBC 4.51 M/uL (4.20-5.40) 08/26/22 05:15 Hgb 13.0 g/dl (12.0-16.0) 08/26/22 05:15 Hct 39.0 % (37.0-47.0) 08/26/22 05:15 MCV 86.5 fL (80.0-100.0) 08/26/22 05:15 MCH 28.8 pg (25.0-34.0) 08/26/22 05:15 MCHC 33.3 g/dL (32.0-36.0) 08/26/22 05:15 RDW Std Deviation 44.8 fL (36.4-46.3) 08/26/22 05:15 RDW Coeff of Shilpa 14.2 % (11.5-14.5) 08/26/22 05:15 Plt Count 375 K/uL (130-400) 08/26/22 05:15 MPV 9.9 fL (9.4-12.4) 08/26/22 05:15 Immature Gran % (Auto) 0.3 % 08/26/22 05:15 Neut % (Auto) 62.6 % 08/26/22 05:15 Lymph % (Auto) 22.2 % 08/26/22 05:15 Randall % (Auto) 12.8 % 08/26/22 05:15 Eos % (Auto) 1.5 % 08/26/22 05:15 Baso % (Auto) 0.6 % 08/26/22 05:15 Neut # (Auto) 5.56 K/uL (1.40-6.50) 08/26/22 05:15 Lymph # (Auto) 1.97 K/uL (1.2-3.4) 08/26/22 05:15 Randall # (Auto) 1.14 K/uL (0.11-0.59) H 08/26/22 05:15 Eos # (Auto) 0.13 K/uL (0-0.50) 08/26/22 05:15 Baso # (Auto) 0.05 K/uL (0-0.2) 08/26/22 05:15 Immature Gran # (Auto) 0.03 K/uL (0.01-0.20) 08/26/22 05:15 Sodium 137 mmol/L (136-145) 08/26/22 05:15 Potassium 4.2 mmol/L (3.5-5.1) 08/26/22 05:15 Chloride 105 mmol/L (98-107) 08/26/22 05:15 Carbon Dioxide 27 mmol/L (21-32) 08/26/22 05:15 Anion Gap 5 (3-11) 08/26/22 05:15 BUN 11 mg/dl (6-23) 08/26/22 05:15 Creatinine 0.61 mg/dl (0.6-1.2) 08/26/22 05:15 Est Cr Clr Drug Dosing Not Reportable 08/26/22 05:15 Est GFR ( Amer) 93.8 ml/min 08/26/22 05:15 Est GFR (Non-Af Amer) 80.9 ml/min 08/26/22 05:15 BUN/Creatinine Ratio 18.0 (10-20) 08/26/22 05:15 Glucose 155 mg/dl (70-99(Fasting)) H 08/26/22 05:15 Calcium 8.5 mg/dl (8.5-10.1) 08/26/22 05:15 Magnesium 2.2 mg/dl (1.7-2.4) 08/26/22 05:15 Magnesium Cancelled 08/26/22 05:15 Total Bilirubin 0.6 mg/dl (0.2-1.0) 08/26/22 05:15 AST 20 U/L (13-39) 08/26/22 05:15 ALT 12 U/L (7-52) 08/26/22 05:15 Alkaline Phosphatase 69 U/L (34-104) 08/26/22 05:15 Troponin I High Sens 11.8 pg/ml (0-14) 08/26/22 05:15 Total Protein 6.3 gm/dl (6.0-8.3) 08/26/22 05:15 Albumin 3.3 gm/dl (3.4-5.0) L 08/26/22 05:15 Globulin 3.0 gm/dl (2.5-4.0) 08/26/22 05:15 Albumin/Globulin Ratio 1.1 (0.9-2) 08/26/22 05:15 Lipase 9 U/L (11-82) L 08/26/22 05:15 Diagnostic Findings Chest x-ray interpretation no congestion EKG as per my interpretation : Rate 160, A-fib, normal axis, ST depression anterolateral leads
[2022-08-26] MEDS ORDERED: LORazepam 0.5 MG TAB PO STA (06:34)
[2022-08-26 07:28] LABS: Partial Thromboplastin Ratio 0.9; Partial Thromboplastin Time 24.9 Seconds (21.0-31.0); Prothrombin Time 10.6 Seconds (9.0-12.0)
--- NOTE | 2022-08-26 07:58 | XRay Report ---
XR chest 1V portable CLINICAL HISTORY: Chest pain, nonspecific TECHNIQUE: Single frontal radiograph of the chest was obtained. Comparison: Comparison is made to chest radiograph 08/21/2022 FINDINGS: No lines and tubes are seen. Calcified aortic knob is seen. The lungs are clear. No evidence of pleur al effusion or pneumothorax. Old healed rib fractures are seen on the right. IMPRESSION: No acute chest disease. ACT 112: Negative or not required by law. Electronically signed by: Sheldon Newman M.D. 08/26/2022 7:57 AM
[2022-08-26] MEDS ORDERED: DIGOXIN 250 MCG in SYRINGE 9 ML IV ONE (08:15)
[2022-08-26] MEDS ORDERED: GLUCOSE 10 TAB/TUBE PO PRN (09:18)
[2022-08-26] MEDS ORDERED: CARBOHYDRATES FOR HYPOGLYCEMIA PO PRN (09:18)
[2022-08-26] MEDS ORDERED: GLUCAGON FOR INJ 1 MG VIAL SQ PRN (09:18)
[2022-08-26] MEDS ORDERED: GLUCOSE 40% GEL 15 GM TUBE PO PRN (09:18)
[2022-08-26] MEDS ORDERED: DEXTROSE 50% 50 ML SYRINGE IV PRN (09:18)
[2022-08-26] MEDS ORDERED: traMADol HCL 50 MG TABLET PO PRN (09:18)
[2022-08-26] MEDS ORDERED: PROMETHAZINE HCL 12.5 MG in SODIUM CHLORIDE 0.9% 50 ML IV PRN (09:18)
[2022-08-26] MEDS: APIXABAN 5 MG TABLET PO SCH ×2 (10:22→21:43)
[2022-08-26] MEDS: POLYETHYLENE (MIRALAX) 17 GM PACK PO SCH ×2 (10:23→21:43)
[2022-08-26] MEDS: ACETAMINOPHEN 325 MG TAB PO PRN (10:25)
[2022-08-26] MEDS: INSULIN ASPART PER UNIT SC SCH ×4 (10:32→21:34)
[2022-08-26] MEDS: LANTUS PER UNIT CHARGE SQ SCH ×2 (10:36→21:35)
[2022-08-26] MEDS ORDERED: METOPROLOL SUCC 50MG EXT REL TAB PO STA (11:14)
--- NOTE | 2022-08-26 12:49 | Cardiology Consultation ---
Date of Consultation August 26, 2022 Assessment & Plan (1) Paroxysmal atrial fibrillation with rapid ventricular response: Plan Patient is an 86-year-old female with known paroxysmal atrial fibrillation on chronic anticoagulation and low-dose beta-connor therapy. Recent hospitalization after acute mechanical fall and left hip fracture status post surgical repair This morning after having transferred yesterday to rehab hospital lapsed back into atrial fibrillation with associated symptoms of chest pressure and tachypalpitations. Patient now converted after IV diltiazem Recommendations: Continue apixaban for anticoagulation Discontinue IV diltiazem Increase metoprolol succinate to 50 mg every morning first dose today Telemetry additional 24 hours. If episodes of atrial fibrillation persist may require long-term antiarrhythmic therapy. No indications current History of Present Illness Reason for Consultation: Atrial fibrillation with rapid ventricular response Requesting Physician: Dr Mason Attending Physician: Jose Manuel Mason MD History of Present Illness Patient is an 86-year-old female with ongoing cardiac concerns 1. Paroxysmal atrial fibrillation diagnosis April 2022 on chronic anticoagulation 2. Past DVT 3. Hypertension 4. Type 2 diabetes mellitus Patient presented to the ER today with sense of heart fluttering and pounding r apid heartbeat on presentation was found to be in atrial fibrillation with rapid ventricular response. Was treated with IV diltiazem with subsequent spontaneous conversion. Recent history is notable for mechanical fall on 08/21/2022 with left hip fracture undergone surgical repair. She was discharged yesterday to [facility] but last evening developed chest pressure pain as described as well as rapid heart sounds and palpitations Currently having breakfast without complaint. No shortness of breath. No dizziness or lightheadedness. No fevers or chills. Surgical incision appears to be healing well. Did have a cramp in her leg and foot this morning but no other acute complaints. No bleeding difficulties on current medical therapies with patient fair historian No hypoxia on presentation Hemodynamically stable Allergies Allergy/AdvReac Type Severity Reaction Status Date / Time latex Allergy Mild Rash Verified 08/21/22 22:43 Penicillins Allergy Unknown CAN'T Verified 05/11/22 01:33 REMEMBER prednisone AdvReac Intermediate irritabilit Verified 05/11/22 01:33 y Home Medications Medication Instructions Recorded Confirmed Type lorazepam 0.5 mg tablet 0.5 mg PO TID PRN Anxiety 02/22/21 08/26/22 History apixaban 5 mg tablet (Eliquis) 5 mg PO BID #60 tabs 05/14/22 08/26/22 Rx metformin 500 mg tablet 500 mg PO BIDWMEAL #60 tabs 05/14/22 08/26/22 Rx metoprolol succinate 25 mg 25 mg PO QAM 08/21/22 08/26/22 History tablet,extended release 24 hr acetaminophen 500 mg tablet 1,000 mg PO Q8H #1 tab 08/25/22 08/26/22 Rx (Tylenol Extra Strength) polyethylene glycol 3350 17 gram 17 g PO BID #1 ea 08/25/22 08/26/22 Rx oral powder packet (Miralax) sennosides 8.6 mg-docusate sodium 2 tab PO HS #1 tab 08/25/22 08/26/22 Rx 50 mg tablet (Senokot-S) tramadol 50 mg tablet 50 mg PO Q6H PRN pain #1 tab 08/25/22 08/26/22 Rx Humulin R Regular U-100 Insuln SC ACHS 08/26/22 History bisacodyl 5 mg tablet,delayed 10 mg DAILY PRN Constipation 08/26/22 08/26/22 History release (Laxative (bisacodyl)) Patient History Medical History COPD (chronic obstructive pulmonary disease) (03/04/14) JOSE (generalized anxiety disorder) (03/04/14) History of diverticulosis Left leg DVT Lower GI bleed Surgical History H/O tubal ligation Family History Other Family history non-contributory Social History Smoking Status: Former smoker Hx Alcohol Use: No Hx Substance Use: No Preferred Language: [place]al[place] Communication Ability: Effective 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 Beliefs That Will Affect Care: None Current Living Situation: Alone Feels Safe at Home: Yes Assistive Devices: Cane Review of Systems Review of Systems: All systems reviewed & are unremarkable except as noted in HPI & below Physical Exam Constitutional: no acute distress Eyes: PERRL, conjunctivae normal, anicteric sclerae ENMT: external ear and nose normal, oropharynx normal Neck: trachea midline, no thyromegaly Cardiovascular: Rate/Rhythm: regular rate Heart Sounds: normal S1, normal S2 and + murmur (Grade 1 #6 systolic) Vessels: no JVD Extremities: no edema Gastrointestinal (Abdomen): normal bowel sounds, soft, nontender, no hepatosplenomegaly Musculoskeletal: Left hip incision intact Skin: no rashes, warm and dry Results & Data ([facility]) Vital Signs (Past 12 Hours) Vital Signs Temp Pulse Pulse Resp BP BP Pulse Ox 08/26/22 11:16 68 28 H 127/61 95 08/26/22 11:16 08/26/22 09:35 146 H 08/26/22 08:45 136/83 08/26/22 08:45 146 H 16 93 08/26/22 08:40 141 H 24 95 08/26/22 08:40 126/80 08/26/22 08:35 150 H 20 94 08/26/22 08:35 116/79 08/26/22 08:30 152 H 17 94 08/26/22 08:30 126/86 08/26/22 08:25 130 H 22 96 08/26/22 08:25 118/97 08/26/22 08:20 133 H 18 94 08/26/22 08:20 107/82 08/26/22 08:15 145 H 17 93 08/26/22 08:15 111/92 08/26/22 08:10 141 H 18 92 08/26/22 08:10 114/83 08/26/22 08:05 142 H 18 92 08/26/22 08:05 120/77 08/26/22 08:00 141 H 18 92 08/26/22 08:00 116/84 08/26/22 07:55 140 H 18 93 08/26/22 07:55 115/81 08/26/22 07:50 135 H 19 92 08/26/22 07:50 125/87 08/26/22 07:45 105/79 08/26/22 07:45 146 H 27 H 96 08/26/22 07:40 145 H 27 H 96 08/26/22 07:40 120/91 08/26/22 07:35 154 H 26 H 95 02/14/23 07:35 110/80 08/26/22 07:30 136 H 23 96 08/26/22 07:30 120/77 08/26/22 07:25 146 H 27 H 96 08/26/22 07:25 117/99 08/26/22 07:20 147 H 23 96 08/26/22 07:20 100/79 08/26/22 07:15 136 H 18 96 08/26/22 07:15 108/82 08/26/22 07:10 140 H 22 96 08/26/22 07:10 127/110 H 08/26/22 07:05 145 H 25 H 95 08/26/22 07:05 133/74 08/26/22 07:00 153 H 34 H 96 08/26/22 07:00 111/76 08/26/22 07:32 133 H 16 120/77 97 08/26/22 06:50 143 H 20 105/74 95 08/26/22 06:40 147 H 20 86/64 L 96 08/26/22 06:46 130 H 08/26/22 06:30 139 H 20 98/68 L 95 08/26/22 06:20 144 H 20 115/78 95 08/26/22 06:10 147 H 20 117/77 94 08/26/22 06:00 150 H 20 100/78 95 08/26/22 05:55 148 H 20 113/89 93 08/26/22 05:45 145 H 18 104/82 93 08/26/22 05:35 132 H 18 104/78 94 08/26/22 05:26 136 H 20 103/77 94 08/26/22 05:15 149 H 18 114/81 94 08/26/22 05:27 127 H 25 H 94 08/26/22 05:14 166 H 08/26/22 05:09 37.1 C 117 H 25 H 114/81 94 Pulse Ox O2 Del Method O2 Del Method 08/26/22 11:16 Room Air 08/26/22 11:16 95 Room Air 08/26/22 09:35 08/26/22 08:45 08/26/22 08:45 08/26/22 08:40 08/26/22 08:40 08/26/22 08:35 08/26/22 08:35 08/26/22 08:30 08/26/22 08:30 08/26/22 08:25 08/26/22 08:25 08/26/22 08:20 08/26/22 08:20 08/26/22 08:15 08/26/22 08:15 08/26/22 08:10 08/26/22 08:10 08/26/22 08:05 08/26/22 08:05 08/26/22 08:00 08/26/22 08:00 08/26/22 07:55 08/26/22 07:55 08/26/22 07:50 08/26/22 07:50 08/26/22 07:45 08/26/22 07:45 08/26/22 07:40 08/26/22 07:40 08/26/22 07:35 08/26/22 07:35 08/26/22 07:30 08/26/22 07:30 08/26/22 07:25 08/26/22 07:25 08/26/22 07:20 08/26/22 07:20 08/26/22 07:15 08/26/22 07:15 08/26/22 07:10 08/26/22 07:10 08/26/22 07:05 08/26/22 07:05 08/26/22 07:00 08/26/22 07:00 08/26/22 07:32 Room Air 08/26/22 06:50 Room Air 08/26/22 06:40 Room Air 08/26/22 06:46 08/26/22 06:30 Room Air 08/26/22 06:20 Room Air 08/26/22 06:10 Room Air 08/26/22 06:00 Room Air 08/26/22 05:55 Room Air 08/26/22 05:45 Room Air 08/26/22 05:35 Room Air 08/26/22 05:26 08/26/22 05:15 08/26/22 05:27 Room Air 08/26/22 05:14 08/26/22 05:09 Room Air Laboratory Results Laboratory Results - last 24 hr 08/26/22 08/26/22 08/26/22 05:15 05:15 05:15 WBC 8.88 RBC 4.51 Hgb 13.0 Hct 39.0 MCV 86.5 MCH 28.8 MCHC 33.3 RDW Std Deviation 44.8 RDW Coeff of Shilpa 14.2 Plt Count 375 MPV 9.9 Immature Gran % (Auto) 0.3 Neut % (Auto) 62.6 Lymph % (Auto) 22.2 [place] % (Auto) 12.8 Eos % (Auto) 1.5 Baso % (Auto) 0.6 Neut # (Auto) 5.56 Lymph # (Auto) 1.97 [place] # (Auto) 1.14 H Eos # (Auto) 0.13 Baso # (Auto) 0.05 Immature Gran # (Auto) 0.03 PT 10.6 INR 1.0 APTT 24.9 PTT Ratio 0.9 Sodium 137 Potassium 4.2 Chloride 105 Carbon Dioxide 27 Anion Gap 5 BUN 11 Creatinine 0.61 Est Cr Clr Drug Dosing Not Reportable Est GFR ( Amer) 93.8 Est GFR (Non-Af Amer) 80.9 BUN/Creatinine Ratio 18.0 Glucose 155 H POC Glucose Calcium 8.5 Magnesium 2.2 Total Bilirubin 0.6 AST 20 ALT 12 Alkaline Phosphatase 69 Troponin I High Sens 11.8 Total Protein 6.3 Albumin 3.3 L Globulin 3.0 Albumin/Globulin Ratio 1.1 Lipase 9 L Procalcitonin TSH SARS-CoV-2, RNA, NAAT 08/26/22 08/26/22 08/26/22 05:15 05:15 05:15 WBC RBC Hgb Hct MCV MCH MCHC RDW Std Deviation RDW Coeff of Shilpa Plt Count MPV Immature Gran % (Auto) Neut % (Auto) Lymph % (Auto) [place] % (Auto) Eos % (Auto) Baso % (Auto) Neut # (Auto) Lymph # (Auto) [place] # (Auto) Eos # (Auto) Baso # (Auto) Immature Gran # (Auto) PT INR APTT PTT Ratio Sodium Potassium Chloride Carbon Dioxide Anion Gap BUN Creatinine Est Cr Clr Drug Dosing Est GFR ( Amer) Est GFR (Non-Af Amer) BUN/Creatinine Ratio Glucose POC Glucose Calcium Magnesium Cancelled Total Bilirubin AST ALT Alkaline Phosphatase Troponin I High Sens Total Protein Albumin Globulin Albumin/Globulin Ratio Lipase Procalcitonin TSH 2.638 SARS-CoV-2, RNA, NAAT NEGATIVE 08/26/22 08/26/22 08/26/22 05:15 10:24 12:50 WBC RBC Hgb Hct MCV MCH MCHC RDW Std Deviation RDW Coeff of Shilpa Plt Count MPV Immature Gran % (Auto) Neut % (Auto) Lymph % (Auto) [place] % (Auto) Eos % (Auto) Baso % (Auto) Neut # (Auto) Lymph # (Auto) [place] # (Auto) Eos # (Auto) Baso # (Auto) Immature Gran # (Auto) PT INR APTT PTT Ratio Sodium Potassium Chloride Carbon Dioxide Anion Gap BUN Creatinine Est Cr Clr Drug Dosing Est GFR ( Amer) Est GFR (Non-Af Amer) BUN/Creatinine Ratio Glucose POC Glucose 127 H 271 H Calcium Magnesium Total Bilirubin AST ALT Alkaline Phosphatase Troponin I High Sens Total Protein Albumin Globulin Albumin/Globulin Ratio Lipase Procalcitonin 0.05 TSH SARS-CoV-2, RNA, NAAT Diagnostic Findings Chest x-ray clear
[2022-08-26] MEDS ORDERED: METOPROLOL SUCC 25MG EXT REL TAB PO SCH (21:00)
[2022-08-26] MEDS: DOCUSATE SODIUM/SENNA 50/8.6MG TAB PO SCH (21:43)
[2022-08-27] MEDS ORDERED: LANTUS PER UNIT CHARGE SQ STA (00:21)
[2022-08-27] MEDS: ACETAMINOPHEN 325 MG TAB PO PRN ×3 (02:21→21:09)
[2022-08-27] MEDS ORDERED: NITROGLYCERIN SL 0.4 MG/TAB TAB SL STA (03:22)
[2022-08-27] MEDS ORDERED: MoRPHine SULFATE 2 MG/ML CARP IV PRN (03:23)
[2022-08-27] MEDS ORDERED: NITROGLYCERIN SL 0.4 MG/TAB TAB ONE (03:26)
[2022-08-27] MEDS: LORazepam 0.5 MG TAB PO PRN ×2 (03:46→21:09)
[2022-08-27 04:49] LABS: Basophils # (auto) 0.06 K/uL (0-0.2); Basophils % (auto) 0.8 %; Eosinophils # (auto) 0.16 K/uL (0-0.50); Hematocrit (blood only) 33.6 % (37.0-47.0); Hemoglobin 11.2 g/dl (12.0-16.0); Immature Granulocytes # (auto) 0.04 K/uL (0.01-0.20); Immature Granulocytes % (auto) 0.5 %; Lymphocytes # (auto) 1.99 K/uL (1.2-3.4); Lymphocytes % (auto) 24.9 %; Mean Corpuscular Hemoglobin 28.9 pg (25.0-34.0); Mean Corpuscular Hgb Conc 33.3 g/dL (32.0-36.0); Mean Corpuscular Volume 86.8 fL (80.0-100.0); Mean Platelet Volume 9.8 fL (9.4-12.4); Monocytes # (auto) 0.86 K/uL (0.11-0.59); Monocytes % (auto) 10.8 %; Neutrophils # (auto) 4.87 K/uL (1.40-6.50); Platelet Count 382 K/uL (130-400); RDW Coefficient of Variation 14.4 % (11.5-14.5); RDW Standard Deviation 45.8 fL (36.4-46.3); Red Blood Count 3.87 M/uL (4.20-5.40); White Blood Count 7.98 K/ul (4.8-10.8)
--- NOTE | 2022-08-27 04:54 | Electrocardiogram Report ---
Test Reason : Blood Pressure : / mmHG Vent. Rate : 163 BPM Atrial Rate : 182 BPM P-R Int : 000 ms QRS Dur : 074 ms QT Int : 286 ms P-R-T Axes : 000 023 054 degrees QTc Int : 470 ms Poor data quality, interpretation may be adversely affected Atrial fibrillation with rapid ventricular response Nonspecific ST and T wave abnormality Abnormal ECG When compared with ECG of 21-AUG-2022 08:23, Atrial fibrillation has replaced Sinus rhythm Vent. rate has increased BY 80 BPM Confirmed by Marcio Harris ([id number]) on 08/27/2022 4:54:37 AM Referred By: REFERRED SELF Confirmed By:Marcio Harris
--- NOTE | 2022-08-27 05:07 | Electrocardiogram Report ---
Test Reason : Blood Pressure : / mmHG Vent. Rate : 077 BPM Atrial Rate : 077 BPM P-R Int : 162 ms QRS Dur : 068 ms QT Int : 386 ms P-R-T Axes : -07 013 002 degrees QTc Int : 436 ms Sinus rhythm with Premature atrial complexes Otherwise normal ECG When compared with ECG of 26-AUG-2022 05:10, Sinus rhythm has replaced Atrial fibrillation Vent. rate has decreased BY [address] no longer depressed in Lateral leads Confirmed by Marcio Harris ([id number]) on 08/27/2022 5:07:17 AM Referred By: REFERRED SELF Confirmed By:Marcio Harris
[2022-08-27 05:08] LABS: BUN Creatinine Ratio 18.8 (10-20); Calcium 8.1 mg/dl (8.5-10.1); Creatinine Clr Calc Pharmacy 58.7 ml/min; Est GFR (African American) 92.3 ml/min; Est GFR (Non-African American) 79.7 ml/min; Potassium 4.4 mmol/L (3.5-5.1)
[2022-08-27 05:19] LABS: Troponin I High Sensitivity 35.9 pg/ml (0-14)
[2022-08-27 05:25] LABS: Partial Thromboplastin Time 26.6 Seconds (21.0-31.0)
[2022-08-27] MEDS ORDERED: PNEUMOCOCCAL Polysaccharide Vaccine 25mcg/0.5mL vial/Syr IM ONE (07:00)
[2022-08-27] MEDS: INSULIN ASPART PER UNIT SC SCH ×4 (08:28→21:07)
[2022-08-27] MEDS: APIXABAN 5 MG TABLET PO SCH ×2 (08:29→21:08)
[2022-08-27] MEDS: LANTUS PER UNIT CHARGE SQ SCH ×2 (08:29→21:07)
[2022-08-27] MEDS: POLYETHYLENE (MIRALAX) 17 GM PACK PO SCH ×2 (08:30→21:09)
[2022-08-27] MEDS: METOPROLOL SUCC 50MG EXT REL TAB PO SCH (08:30)
--- NOTE | 2022-08-27 10:01 | Hospitalist Progress Note ---
Date of Service August 27, 2022 Assessment & Plan (1) Atrial fibrillation with RVR: Plan: Recent left femoral fracture surgery after a fall Patient has been back to sinus rhythm since yesterday Off cardizem drip Continue home eliquis Home metoprolol succinate was increased to 50mg daily Will follow up with Cardiology today. If no further adjustments needed, will plan to dc back to rehab as soon as possible History of PVD Asthma/COPD stable Hypertension Monitor DM2 on oral medications Suboptimal control as of recent hemoglobin A1c of 10 this month ISS per protocol while inpatient Resume metformin and insulin on dc DVT prophylaxis. Eliquis Full code Patient daughter requesting updates from providers. Ms. Mellisa Khoury, contact #[phone]. Admission and Anticipated Discharge Date Admission Date: August 26, 2022 Subjective Patient seen and examined. Reports some temporal headache which she said this is chronic intermittent for her. Reports some left hip pain last night which improved with pain regimen. Currently denies any chest pain, palpitations, nausea, vomiting, cough, shortness of breath, abdominal pain or diarrhea Physical Exam Constitutional: + well hydrated; no acute distress Eyes: PERRL, conjunctivae normal, anicteric sclerae ENMT: external ear and nose normal, oropharynx normal Respiratory: normal respiratory effort, lungs clear to auscultation Cardiovascular: Rate/Rhythm: regular rate and regular rhythm S1-S2 Gastrointestinal (Abdomen): normal bowel sounds, soft, nontender, no hepatosplenomegaly Musculoskeletal: Clean dressing over left hip Neurologic: PERRL, EOMI, accommodation nl, no face palsy, no dysarthria Psychiatric: A+Ox3, euthymic affect Results & Data Results & Data ([facility]) Vital Signs (Past 12 Hours) Vital Signs Temp Pulse Pulse Resp BP Pulse Ox O2 Del Method 08/27/22 09:46 61 08/27/22 08:03 37.0 C 62 18 156/68 H 97 Room Air 08/27/22 03:43 65 148/69 H 08/27/22 03:35 67 144/74 H 08/27/22 03:28 36.5 C 61 20 182/77 H 97 Room Air 08/26/22 22:10 61 08/26/22 22:34 36.4 C L 59 L 16 160/73 H 95 Room Air Laboratory Results Abnormal lab results 08/26/22 08/26/22 08/26/22 Range/Units 10:24 12:50 18:44 RBC (4.20-5.40) M/uL Hgb (12.0-16.0) g/dl Hct (37.0-47.0) % [place] # (Auto) (0.11-0.59) K/uL Glucose (70-99(Fasting)) mg/dl POC Glucose 127 H 271 H 101 H (70-99) mg/dl Calcium (8.5-10.1) mg/dl Troponin I High Sens (0-14) pg/ml 08/26/22 08/27/22 08/27/22 Range/Units 20:31 00:01 04:08 RBC 3.87 L (4.20-5.40) M/uL Hgb 11.2 L (12.0-16.0) g/dl Hct 33.6 L (37.0-47.0) % [place] # (Auto) 0.86 H (0.11-0.59) K/uL Glucose (70-99(Fasting)) mg/dl POC Glucose 116 H 153 H (70-99) mg/dl Calcium (8.5-10.1) mg/dl Troponin I High Sens (0-14) pg/ml 08/27/22 08/27/22 Range/Units 04:08 07:19 RBC (4.20-5.40) M/uL Hgb (12.0-16.0) g/dl Hct (37.0-47.0) % [place] # (Auto) (0.11-0.59) K/uL Glucose 153 H (70-99(Fasting)) mg/dl POC Glucose 142 H (70-99) mg/dl Calcium 8.1 L (8.5-10.1) mg/dl Troponin I High Sens 35.9 H D (0-14) pg/ml
[2022-08-27 11:00] LABS: Appearance Urine Clear (Clear); Bacteria Urine Automated Negative (Negative); Bilirubin Urine Negative (Negative); Blood Urine Negative (Negative); Color Urine Yellow; Epithelial Cell Urine Auto 0-5 /lpf (0-5); Glucose Urine UA 2+ (Negative); Ketones Urine Negative (Negative); Leukocyte Esterase Urine 3+ (Negative); Nitrite Urine Negative (Negative); Protein Urine Negative (Negative); RBC Urine Automated 0-4 /hpf (0-4); Specific Gravity Urine 1.006 (1.000-1.030); Urobilinogen Urine Negative (Negative); WBC Urine Automated >30 /hpf (0-5)
--- NOTE | 2022-08-27 13:45 | Cardiology Progress Note ---
Date of Service August 27, 2022 Assessment & Plan (1) Paroxysmal atrial fibrillation with rapid ventricular response: Plan Patient is an 86-year-old female with known paroxysmal atrial fibrillation on chronic anticoagulation and low-dose beta-connor therapy. Recent hospitalization after acute mechanical fall and left hip fracture status post surgical repair This morning after having transferred yesterday to rehab hospital lapsed back into atrial fibrillation with associated symptoms of chest pressure and tachypalpitations. Patient now converted after IV diltiazem Recommendations: Continue apixaban for anticoagulation Continue metoprolol succinate 50 mg daily Add amlodipine 2.5 mg nightly for additional blood pressure control Do not suspect acute coronary syndrome with trivial elevation in troponin secondary to acute tachycardia and recent surgeries. EKG normal and LV systolic function preserved Admission and Anticipated Discharge Date Admission Date: August 26, 2022 Subjective Patient seen and examined, chart, medications, telemetry reviewed. Complains of leg cramping, headache No acute cardiac complaints. Telemetry without further atrial arrhythmias Surgical incision intact Physical Exam Constitutional: no acute distress Eyes: PERRL, conjunctivae normal, anicteric sclerae ENMT: external ear and nose normal, oropharynx normal Neck: trachea midline, no thyromegaly Cardiovascular: Rate/Rhythm: regular rate Heart Sounds: normal S1, normal S2 and + murmur (Grade 1 #6 systolic) Vessels: no JVD Extremities: no edema Gastrointestinal (Abdomen): normal bowel sounds, soft, nontender, no hepatosplenomegaly Skin: no rashes, warm and dry Results & Data ([facility]) Vital Signs (Past 12 Hours) Vital Signs Temp Pulse Pulse Resp BP Pulse Ox O2 Del Method 08/27/22 11:23 36.8 C 55 L 19 168/73 H 96 Room Air 08/27/22 10:42 Room Air 08/27/22 09:46 61 08/27/22 08:03 37.0 C 62 18 156/68 H 97 Room Air 08/27/22 03:43 65 148/69 H 08/27/22 03:35 67 144/74 H 08/27/22 03:28 36.5 C 61 20 182/77 H 97 Room Air Laboratory Results Laboratory Results - last 24 hr 08/26/22 08/26/22 08/26/22 18:44 20:31 22:45 WBC RBC Hgb Hct MCV MCH MCHC RDW Std Deviation RDW Coeff of Shilpa Plt Count MPV Immature Gran % (Auto) Neut % (Auto) Lymph % (Auto) [place] % (Auto) Eos % (Auto) Baso % (Auto) Neut # (Auto) Lymph # (Auto) [place] # (Auto) Eos # (Auto) Baso # (Auto) Immature Gran # (Auto) APTT PTT Ratio Sodium Potassium Chloride Carbon Dioxide Anion Gap BUN Creatinine Est Cr Clr Drug Dosing Est GFR ( Amer) Est GFR (Non-Af Amer) BUN/Creatinine Ratio Glucose POC Glucose 101 H 116 H Calcium Troponin I High Sens Urine Color Urine Appearance Urine pH Ur Specific [place] Urine Protein Urine Glucose (UA) Urine Ketones Urine Blood Urine Nitrite Urine Bilirubin Urine Urobilinogen Ur Leukocyte Esterase Urine WBC (Auto) Urine RBC (Auto) U Hyaline Cast (Auto) U Epithel Cells (Auto) Urine Bacteria (Auto) Nasal Screen MRSA (PCR) Negative 08/26/22 08/27/22 08/27/22 Unknown 00:01 04:08 WBC 7.98 RBC 3.87 L Hgb 11.2 L Hct 33.6 L MCV 86.8 MCH 28.9 MCHC 33.3 RDW Std Deviation 45.8 RDW Coeff of Shilpa 14.4 Plt Count 382 MPV 9.8 Immature Gran % (Auto) 0.5 Neut % (Auto) 61.0 Lymph % (Auto) 24.9 [place] % (Auto) 10.8 Eos % (Auto) 2.0 Baso % (Auto) 0.8 Neut # (Auto) 4.87 Lymph # (Auto) 1.99 [place] # (Auto) 0.86 H Eos # (Auto) 0.16 Baso # (Auto) 0.06 Immature Gran # (Auto) 0.04 APTT PTT Ratio Sodium Potassium Chloride Carbon Dioxide Anion Gap BUN Creatinine Est Cr Clr Drug Dosing Est GFR ( Amer) Est GFR (Non-Af Amer) BUN/Creatinine Ratio Glucose POC Glucose 153 H Calcium Troponin I High Sens Urine Color Yellow Urine Appearance Clear Urine pH 7.0 Ur Specific [place] 1.006 Urine Protein Negative Urine Glucose (UA) 2+ H Urine Ketones Negative Urine Blood Negative Urine Nitrite Negative Urine Bilirubin Negative Urine Urobilinogen Negative Ur Leukocyte Esterase 3+ H Urine WBC (Auto) >30 H Urine RBC (Auto) 0-4 U Hyaline Cast (Auto) 1-5 U Epithel Cells (Auto) 0-5 Urine Bacteria (Auto) Negative Nasal Screen MRSA (PCR) 08/27/22 08/27/22 08/27/22 04:08 04:08 07:19 WBC RBC Hgb Hct MCV MCH MCHC RDW Std Deviation RDW Coeff of Shilpa Plt Count MPV Immature Gran % (Auto) Neut % (Auto) Lymph % (Auto) [place] % (Auto) Eos % (Auto) Baso % (Auto) Neut # (Auto) Lymph # (Auto) [place] # (Auto) Eos # (Auto) Baso # (Auto) Immature Gran # (Auto) APTT 26.6 PTT Ratio 1.0 Sodium 137 Potassium 4.4 Chloride 106 Carbon Dioxide 24 Anion Gap 7 BUN 12 Creatinine 0.64 Est Cr Clr Drug Dosing 58.7 Est GFR ( Amer) 92.3 Est GFR (Non-Af Amer) 79.7 BUN/Creatinine Ratio 18.8 Glucose 153 H POC Glucose 142 H Calcium 8.1 L Troponin I High Sens 35.9 H D Urine Color Urine Appearance Urine pH Ur Specific [place] Urine Protein Urine Glucose (UA) Urine Ketones Urine Blood Urine Nitrite Urine Bilirubin Urine Urobilinogen Ur Leukocyte Esterase Urine WBC (Auto) Urine RBC (Auto) U Hyaline Cast (Auto) U Epithel Cells (Auto) Urine Bacteria (Auto) Nasal Screen MRSA (PCR) 08/27/22 11:24 WBC RBC Hgb Hct MCV MCH MCHC RDW Std Deviation RDW Coeff of Shilpa Plt Count MPV Immature Gran % (Auto) Neut % (Auto) Lymph % (Auto) [place] % (Auto) Eos % (Auto) Baso % (Auto) Neut # (Auto) Lymph # (Auto) [place] # (Auto) Eos # (Auto) Baso # (Auto) Immature Gran # (Auto) APTT PTT Ratio Sodium Potassium Chloride Carbon Dioxide Anion Gap BUN Creatinine Est Cr Clr Drug Dosing Est GFR ( Amer) Est GFR (Non-Af Amer) BUN/Creatinine Ratio Glucose POC Glucose 165 H Calcium Troponin I High Sens Urine Color Urine Appearance Urine pH Ur Specific [place] Urine Protein Urine Glucose (UA) Urine Ketones Urine Blood Urine Nitrite Urine Bilirubin Urine Urobilinogen Ur Leukocyte Esterase Urine WBC (Auto) Urine RBC (Auto) U Hyaline Cast (Auto) U Epithel Cells (Auto) Urine Bacteria (Auto) Nasal Screen MRSA (PCR)
[2022-08-27] MEDS ORDERED: amLODIPine BESYLATE 5 MG TAB PO SCH (21:00)
[2022-08-27] MEDS: DOCUSATE SODIUM/SENNA 50/8.6MG TAB PO SCH (21:08)
--- NOTE | 2022-08-27 22:17 | Electrocardiogram Report ---
Test Reason : Blood Pressure : / mmHG Vent. Rate : 062 BPM Atrial Rate : 062 BPM P-R Int : 188 ms QRS Dur : 074 ms QT Int : 436 ms P-R-T Axes : 040 033 049 degrees QTc Int : 442 ms Normal sinus rhythm Normal ECG When compared with ECG of 26-AUG-2022 10:50, Premature atrial complexes are no longer Present Nonspecific T wave abnormality no longer evident in Inferior leads Confirmed by Marcio Harris ([id number]) on 08/27/2022 10:17:33 PM Referred By: REFERRED SELF Confirmed By:Marcio Harris
[2022-08-28] MEDS: ACETAMINOPHEN 325 MG TAB PO PRN ×2 (05:47→11:47)
[2022-08-28 07:44] LABS: Hematocrit (blood only) 38.1 % (37.0-47.0); Hemoglobin 12.9 g/dl (12.0-16.0); Mean Corpuscular Hgb Conc 33.9 g/dL (32.0-36.0); Mean Corpuscular Volume 85.6 fL (80.0-100.0); Mean Platelet Volume 9.6 fL (9.4-12.4); Platelet Count 423 K/uL (130-400); RDW Coefficient of Variation 14.2 % (11.5-14.5); RDW Standard Deviation 44.1 fL (36.4-46.3); Red Blood Count 4.45 M/uL (4.20-5.40); White Blood Count 7.84 K/ul (4.8-10.8)
[2022-08-28 07:58] LABS: Calcium 9.1 mg/dl (8.5-10.1); Creatinine Clr Calc Pharmacy 61.4 ml/min; Est GFR (African American) 93.3 ml/min; Est GFR (Non-African American) 80.5 ml/min; Potassium 3.9 mmol/L (3.5-5.1)
[2022-08-28] MEDS: LANTUS PER UNIT CHARGE SQ SCH (09:06)
[2022-08-28] MEDS: INSULIN ASPART PER UNIT SC SCH ×2 (09:07→12:48)
[2022-08-28] MEDS: METOPROLOL SUCC 50MG EXT REL TAB PO SCH (09:08)
[2022-08-28] MEDS: POLYETHYLENE (MIRALAX) 17 GM PACK PO SCH (09:09)
[2022-08-28] MEDS: APIXABAN 5 MG TABLET PO SCH (09:09)
--- NOTE | 2022-08-28 12:15 | Discharge Summary ---
Discharge Summary Date of Service August 28, 2022 Notes For Next Care Provider Monitor and manage hypertension Follow up recovery at rehab Medication Changes From Visit Metoprolol succinate increased to 50mg daily Started on amlodipine 5mg HS Admission HPI Per Admitting Provider History obtained from patient, family, and records. Medical history significant for paroxysmal A-fib/unprovoked DVT on Eliquis, PVD, asthma/COPD, hypertension, DM2 on oral medications, anxiety/mood disorder. Patient admitted August 21 to 2022 for left femoral neck fracture status post surgery. Patient discharged to rehab facility yesterday. This morning, patient had trouble walking to the bathroom with assistance at rehab facility. Upon return to bed, patient experienced left-sided chest discomfort from heart thumping. No radiation, some shortness of breath, no cough symptoms. Heart rate up to 200s. Prehospital EKG showed rapid A-fib. Aspirin and Cardizem administered prior to hospital transfer. Patient currently comfortable. 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 Admission Exam Per Admitting Provider GENERAL: Comfortable, slightly anxious, no respiratory distress SKIN: Normal color, warm HEENT: [place] palpebral conjunctivae, no ptosis, dry buccal mucosa NECK : Supple, no tenderness CHEST : CTA, no tenderness HEART : Tachycardic, irregular,, no obvious murmurs ABDOMEN: Some distention, nontender EXTREMITIES : No LE swelling, minimal left hip tenderness, no other conspicuous deformities noted NEUROLOGIC : Coherent, no facial asymmetry, no other gross focality Principal Dx & Hospital Course #1 = Principal Diagnosis (1) Atrial fibrillation with RVR: Recent left femoral fracture surgery after a fall Patient has been back to sinus rhythm since day of admission Continue home eliquis Home metoprolol succinate was increased to 50mg daily History of PVD Asthma/COPD stable Hypertension Started on amlodipine 5mg HS per Cardiology for better BP control DM2 Continue home antidiabetic regimen Discharged back to [facility] for rehab Discharge Exam Constitutional + well hydrated; no acute distress Eyes PERRL, conjunctivae normal, anicteric sclerae ENMT external ear and nose normal, oropharynx normal Respiratory normal respiratory effort, lungs clear to auscultation Cardiovascular Rate/Rhythm: regular rate and regular rhythm S1 S2 Gastrointestinal (Abdomen) normal bowel sounds, soft, nontender, no hepatosplenomegaly Musculoskeletal Clean dressing over left hip Neurologic PERRL, EOMI, accommodation nl, no face palsy, no dysarthria Psychiatric A+Ox3, euthymic affect Updated Medication List Medication Instructions Recorded Confirmed Type lorazepam 0.5 mg tablet 0.5 mg PO TID PRN Anxiety 02/22/21 08/26/22 History apixaban 5 mg tablet (Eliquis) 5 mg PO BID #60 tabs 05/14/22 08/26/22 Rx metformin 500 mg tablet 500 mg PO BIDWMEAL #60 tabs 05/14/22 08/26/22 Rx acetaminophen 500 mg tablet 1,000 mg PO Q8H #1 tab 08/25/22 08/26/22 Rx (Tylenol Extra Strength) polyethylene glycol 3350 17 gram 17 g PO BID #1 ea 08/25/22 08/26/22 Rx oral powder packet (Miralax) sennosides 8.6 mg-docusate sodium 2 tab PO HS #1 tab 08/25/22 08/26/22 Rx 50 mg tablet (Senokot-S) tramadol 50 mg tablet 50 mg PO Q6H PRN pain #1 tab 08/25/22 08/26/22 Rx Humulin R Regular U-100 Insuln 0 unit SC ACHS 08/26/22 08/26/22 History bisacodyl 5 mg tablet,delayed 10 mg DAILY PRN Constipation 08/26/22 08/26/22 History release (Laxative (bisacodyl)) amlodipine 5 mg tablet (Norvasc) 5 mg PO HS #30 tabs 08/28/22 Rx metoprolol succinate 25 mg 50 mg PO QAM #60 tabs 08/28/22 08/26/22 Rx tablet,extended release 24 hr Hospital Stay Data Consultations 08/26/22 05:42 ED Decision to Admit Stat 08/26/22 07:22 Consult Cardiology Routine Pending Results Patient Have Any Pending Studies at Discharge: No Discharge Instructions Given to Patient (Per Discharging Provider) Mrs Francis You were brought back to ER from rehab for rapid heart rate. You were found to be in Afib (Atrial fibrillation) with rapid heart rate. You converted back to normal heart rhythm. Your metoprolol succinate was increased from 25mg daily to 50mg daily You were also started on amlodipine 5mg at bedtime for better blood pressure control. This may be adjusted as needed. Please continue to take your eliquis. You are being discharged back to rehab. It was a pleasure taking care of you. Total Time Total Time Spent Total Time Spent (In Minutes): 45 Total Time Includes: Examination of the Patient, Discharge Planning, Medication Reconciliation and Communication With Other Providers
--- NOTE | 2022-08-28 15:04 | Cardiology Progress Note ---
Date of Service August 28, 2022 Assessment & Plan (1) Paroxysmal atrial fibrillation with rapid ventricular response: Plan Patient is an 86-year-old female with known paroxysmal atrial fibrillation on chronic anticoagulation and low-dose beta-connor therapy. Recent hospitalization after acute mechanical fall and left hip fracture status post surgical repair This morning after having transferred yesterday to rehab hospital lapsed back into atrial fibrillation with associated symptoms of chest pressure and tachypalpitations. Patient now converted after IV diltiazem Recommendations: Continue apixaban for anticoagulation Continue metoprolol succinate 50 mg daily Add amlodipine 2.5 mg nightly for additional blood pressure control Do not suspect acute coronary syndrome with trivial elevation in troponin secondary to acute tachycardia and recent surgeries. EKG normal and LV systolic function preserved Once again no further arrhythmias. Will increase amlodipine to 5 mg nightly for additional blood pressure control Admission and Anticipated Discharge Date Admission Date: August 26, 2022 Subjective Patient seen and examined, chart, medications, telemetry reviewed. Complains of leg cramping overnight no further arrhythmias Blood pressure elevated in association with pain and discomfort. No hypoxia Physical Exam Constitutional: no acute distress Eyes: PERRL, conjunctivae normal, anicteric sclerae ENMT: external ear and nose normal, oropharynx normal Neck: trachea midline, no thyromegaly Cardiovascular: Rate/Rhythm: regular rate Heart Sounds: normal S1, normal S2 and + murmur (Grade 1 #6 systolic) Vessels: no JVD Extremities: no edema Gastrointestinal (Abdomen): normal bowel sounds, soft, nontender, no hepat osplenomegaly Skin: no rashes, warm and dry Results & Data ([facility]) Vital Signs (Past 12 Hours) Vital Signs Temp Pulse Resp BP BP Pulse Ox O2 Del Method 08/28/22 14:24 36.8 C 62 20 160/71 H 184/90 H 96 08/28/22 11:30 36.8 C 62 20 184/90 H 96 Room Air 08/28/22 08:00 Room Air 08/28/22 09:04 89 133/75 08/28/22 07:30 36.7 C 75 20 160/71 H 94 Room Air Laboratory Results Laboratory Results - last 24 hr 08/27/22 08/27/22 08/28/22 16:23 20:18 06:58 WBC 7.84 RBC 4.45 Hgb 12.9 Hct 38.1 MCV 85.6 MCH 29.0 MCHC 33.9 RDW Std Deviation 44.1 RDW Coeff of Shilpa 14.2 Plt Count 423 H MPV 9.6 Sodium Potassium Chloride Carbon Dioxide Anion Gap BUN Creatinine Est Cr Clr Drug Dosing Est GFR ( Amer) Est GFR (Non-Af Amer) BUN/Creatinine Ratio Glucose POC Glucose 236 H 175 H Calcium 08/28/22 08/28/22 08/28/22 06:58 07:39 11:19 WBC RBC Hgb Hct MCV MCH MCHC RDW Std Deviation RDW Coeff of Shilpa Plt Count MPV Sodium 140 Potassium 3.9 Chloride 106 Carbon Dioxide 27 Anion Gap 7 BUN 13 Creatinine 0.62 Est Cr Clr Drug Dosing 61.4 Est GFR ( Amer) 93.3 Est GFR (Non-Af Amer) 80.5 BUN/Creatinine Ratio 21.0 H Glucose 169 H POC Glucose 142 H 230 H Calcium 9.1
[2022-08-28] MEDS ORDERED: amLODIPine BESYLATE 5 MG TAB PO SCH (21:00)
== END 2022-08-28 16:43 | DRG 310 ==
LOC: ED 05:06 → EDINP 06:30 → SUATTDRO 06:30 → 2S 09:19